=== PATIENT | male | born 1940 | race Hispanic/Latino ===

== ENCOUNTER 2020-02-16 06:32 | Outpatient (CLI) | payer MEDICARE, OTHER ==
[2020-02-16 10:23] LABS: Hemoglobin 9.6 g/dL (14.0-18.0); Mean Corpuscular HGB CONC 31.3 G/DL (32.0-36.0); Mean Corpuscular Hemoglobin 27.1 PG (27.0-33.0); Mean Corpuscular Volume 86.7 fl (80.0-100.0); Mean Platelet Volume 10.4 fl (7.4-10.4); Platelet Count 269 10x3/uL (130-400); RBC Distribution Width 13.6 % (11.5-14.5); Red Blood Cell (RBC) Count 3.54 10x6/uL (4.40-5.80); White Blood Cell (WBC) Count 5.6 10x3/uL (4.5-11.0)
[2020-02-16 17:49] LABS: SARS-CoV-2 MS2 Positive; SARS-CoV-2 N Gene Negative; SARS-CoV-2 S Gene Negative; SARS-CoV-2 by NAA Not Detected (NotDetected); SARS-CoV-2 orf1ab Negative
== END 2020-02-16 06:33 | disposition home or self-care (01) ==
LOC: MERGE 06:32 → LABBT 06:32
PROVIDERS: ATTEND Thoracic Surgery (Cardiothoracic Vascular Surgery)
DX: Z01.812 Encounter for preprocedural laboratory examination (principal); Z20.828 Contact with and (suspected) exposure to other viral communicable diseases; I65.23 Occlusion and stenosis of bilateral carotid arteries
CPT/HCPCS: 85027; U0003; 87635

== ENCOUNTER 2020-02-29 20:22 | Emergency (ER) | payer MEDICARE ==
--- NOTE | 2020-02-29 21:15 | RAD ---
Chest one view HISTORY: Cough. Fever. COMPARISON: 11/17/2017. FINDINGS: Cardiac silhouette is magnified by projection. Pulmonary vasculature is unremarkable. Mediastinum is midline with aortic calcification, postoperative changes, and a single lead left subcl maurisio cardiac defibrillator. No lobar consolidation or evidence of pneumothorax. IMPRESSION : No active cardiopulmonary abnormalities are demonstrated.
[2020-02-29 21:49] LABS: ALT (SGPT) 12 U/L (8-55); AST (SGOT) 31 U/L (5-34); Albumin 3.9 g/dL (3.4-4.8); Alkaline Phosphatase 92 U/L (40-110); Anion Gap 17 mmol/L (10-20); BUN (Urea Nitrogen) 22 mg/dL (8.4-25.7); Bilirubin, Total 0.4 mg/dL (0.2-1.2); Calc. Creatinine Clearance 0 mL/min (70-130); Calcium 8.5 mg/dL (7.8-10.44); Carbon Dioxide 19 mmol/L (23-31); Chloride 103 mmol/L (98-107); Estimated GFR-MDRD 41; Globulin 3.4 g/dL (2.4-3.5); Glucose 165 mg/dL (83-110); Potassium 4.4 mmol/L (3.5-5.1); Protein, Total 7.3 g/dL (5.8-8.1); Sodium 135 mmol/L (136-145)
[2020-02-29 21:51] LABS: #Lymphocytes 0.7 thou/uL (1.20-3.40); #Monocytes 0.5 thou/uL (0.11-0.59); #Neutrophils 5.1 thou/uL (1.40-6.50); %Basophils 0.1 % (0.0-1.0); %Eosinophils 0.2 % (0.0-10.0); %Lymphocytes 10.4 % (21.0-51.0); %Monocytes 7.7 % (0.0-10.0); %Neutrophils 81.6 % (42.0-75.0); Hemoglobin 8.6 g/dL (14.0-18.0); Mean Corpuscular HGB CONC 32.7 g/dL (32.0-36.0); Mean Corpuscular Volume 85.4 fL (78.0-98.0); Mean Platelet Volume 7.9 fL (7.4-10.4); Platelet Count 225 thou/uL (130-400); RBC Distribution Width 12.1 % (11.5-14.5); Red Blood Cell (RBC) Count 3.09 mill/uL (4.70-6.10); White Blood Cell (WBC) Count 6.3 thou/uL (4.8-10.8)
== END 2020-02-29 22:34 | disposition home or self-care (01) ==
LOC: ERS 20:22
DX: J06.9 Acute upper respiratory infection, unspecified (principal); N17.9 Acute kidney failure, unspecified; D64.9 Anemia, unspecified; I10 Essential (primary) hypertension
CPT/HCPCS: 36415; 71045; 80053; 83605; 85025

== ENCOUNTER 2020-03-03 22:53 | Inpatient (IN) | payer MEDICARE ==
--- NOTE | 2020-03-03 23:32 | RAD ---
EXAM: Single view of the chest HISTORY: Cough with fever and body aches COMPARISON: 02/29/2020 FINDINGS: Single view of the chest shows an enlarged but stable cardiomediastinal silhouette. The pa tient is status post sternotomy. A pacemaker is seen with its tip in the right ventricle. Increased interstitial markings are present. There appear to be superimposed peripheral airspace opacities in t he right lung. Degenerative changes are seen in the spine. IMPRESSION: 1. Multifocal right-sided pulmonary infiltrates 2. Cardiomegaly
[2020-03-03 23:41] LABS: #Basophils 0.1 thou/uL (0.0-0.2); #Lymphocytes 0.8 thou/uL (1.20-3.40); #Monocytes 0.4 thou/uL (0.11-0.59); #Neutrophils 6.3 thou/uL (1.40-6.50); %Basophils 1.1 % (0.0-1.0); %Eosinophils 0.1 % (0.0-10.0); %Lymphocytes 10.6 % (21.0-51.0); %Monocytes 4.8 % (0.0-10.0); %Neutrophils 83.4 % (42.0-75.0); Hemoglobin 8.3 g/dL (14.0-18.0); Mean Corpuscular HGB CONC 32.7 g/dL (32.0-36.0); Mean Corpuscular Hemoglobin 27.8 pg (27.0-31.0); Mean Corpuscular Volume 84.8 fL (78.0-98.0); Platelet Count 193 thou/uL (130-400); Red Blood Cell (RBC) Count 2.98 mill/uL (4.70-6.10); White Blood Cell (WBC) Count 7.5 thou/uL (4.8-10.8)
[2020-03-04 00:02] LABS: ALT (SGPT) 16 U/L (8-55); AST (SGOT) 28 U/L (5-34); Albumin 3.9 g/dL (3.4-4.8); Alkaline Phosphatase 85 U/L (40-110); Anion Gap 14 mmol/L (10-20); BUN (Urea Nitrogen) 13 mg/dL (8.4-25.7); Bilirubin, Total 0.4 mg/dL (0.2-1.2); Calc. Creatinine Clearance 0 mL/min (70-130); Calcium 8.5 mg/dL (7.8-10.44); Carbon Dioxide 22 mmol/L (23-31); Chloride 100 mmol/L (98-107); Globulin 3.4 g/dL (2.4-3.5); Glucose 169 mg/dL (83-110); Potassium 4.1 mmol/L (3.5-5.1); Protein, Total 7.3 g/dL (5.8-8.1); Sodium 132 mmol/L (136-145)
[2020-03-04] MEDS ORDERED: Acetaminophen 325 MG TAB PO PRN (00:53)
[2020-03-04] MEDS ORDERED: Dexamethasone 10 MG/ML VIAL ONE (00:56)
[2020-03-04] MEDS ORDERED: Acetaminophen 500 MG TAB ONE (01:11)
--- NOTE | 2020-03-04 01:17 | PDOC.BPN ---
- Brief Progress Note Encounter Date: 03/04/20 [id number] dictated
[2020-03-04 01:28] LABS: SARS-CoV-2 NAA Rapid Test DETECTED (NotDetected)
--- NOTE | 2020-03-04 02:11 | HP ---
CHIEF COMPLAINT: Body aches, cough, and diarrhea. HISTORY OF PRESENT ILLNESS: Mr. Andrade is a 79-year-old male, with past medical history of hypertension and hyperlipidemia, presents to the emergency room with body aches, cough, and diarrhea. Patient had similar symptoms last week and came to the emergency room and was told he was most likely has a viral syndrome. Patient felt better, then symptoms started again today. He had a COVID swab on the 15 of February which was negative. The test was done prior to his carotid endarterectomy. He denies being around sick people. He denies any fever, but in the emergency room, his temperature was 102.4. While in the emergency room, patient's oxygen saturation dropped down to the 80s. Chest x-ray showed infiltrates. CT of the chest was done which showed infiltrates consistent with viral/COVID pneumonia. Patient was started on IV antibiotics. Patient also was given one dose of IV dexamethasone. Patient was given IV fluid bolus in the emergency room. The patient is being admitted to hospital for further management. PAST MEDICAL HISTORY: 1. Hypertension. 2. Hyperlipidemia. PAST SURGICAL HISTORY: 1. Carotid endarterectomy. 2. Defibrillator. 3. Coronary artery bypass graft surgery. 4. Cholecystectomy. SOCIAL HISTORY: Denies smoking, alcohol drinking, or drug abuse. Lives at home with family. HOME MEDICATIONS: Please see home medication reconciliation form for updated medications. ALLERGIES: NO KNOWN ALLERGIES. REVIEW OF SYSTEMS: Review of 14 systems negative, except what is mentioned in history of present illness. PHYSICAL EXAMINATION: GENERAL: Patient is awake, alert, in mild distress. VITAL SIGNS: Blood pressure is 139/60, pulse is 87, respiratory rate is 22, temperature 102.4, and oxygen saturation 94% on 2 L/minute nasal cannula. HEAD AND NECK: Normocephalic, atraumatic. Neck is supple. CHEST: Few bibasilar crackles. Respirations mildly labored. HEART: S1, S2. Regular. ABDOMEN: Soft, mildly tender. Bowel sounds present. NEUROLOGIC: Awake, alert, moving extremities. PSYCH: Unable to assess. EXTREMITIES: No clubbing or cyanosis. LABORATORY DATA: Sodium is 132, potassium is 4.1, BUN is 13, creatinine is 1.0, and glucose 169. WBC 7.5, hemoglobin is 8.3, with MCV of 84, and platelets 193. Chest x-ray showed multifocal right-sided pulmonary infiltrates, cardiomegaly. CT of the chest was done. As per ED physician, bilateral infiltrates consistent with viral/COVID pneumonia. ASSESSMENT: 1. Pneumonia, probably viral secondary to COVID-19 virus infection. 2. Suspected COVID-19 virus infection. 3. Anemia of ?chronic disease. 4. Hypertension. 5. Diarrhea. PLAN: 1. Admit. 2. Repeat COVID testing ordered by ED physician, follow the results. 3. Isolation precautions for now. 4. Patient was given IV fluid bolus because of the diarrhea, I will hold giving any further IV fluids for now, try to avoid fluid overload in a patient with suspected COVID pneumonia. 5. IV dexamethasone, reassess in the a.m. 6. Oxygen to keep saturation more than 92%. 7. Reconcile home medications. 8. DVT prophylaxis as appropriate. 9. Expected length of stay, 2 midnights or more. Job ID: [id number]
[2020-03-04] MEDS: Azithromycin 500 MG in Sodium Chloride 0.9% 250 ML 250 ML IVPB SCH (02:16)
[2020-03-04] MEDS: cefTRIAXone\\ROCEPHIN 1 GM in Sodium Chloride 0.9% 100 ML IVPB SCH (02:16)
[2020-03-04 05:28] LABS: #Lymphocytes 0.4 thou/uL (1.20-3.40); #Monocytes 0.2 thou/uL (0.11-0.59); #Neutrophils 6.6 thou/uL (1.40-6.50); %Eosinophils 0.1 % (0.0-10.0); %Monocytes 2.8 % (0.0-10.0); %Neutrophils 91.2 % (42.0-75.0); Hemoglobin 7.7 g/dL (14.0-18.0); Mean Corpuscular HGB CONC 32.4 g/dL (32.0-36.0); Mean Corpuscular Hemoglobin 27.9 pg (27.0-31.0); Mean Corpuscular Volume 86.1 fL (78.0-98.0); Mean Platelet Volume 8.3 fL (7.4-10.4); Platelet Count 190 thou/uL (130-400); RBC Distribution Width 12.2 % (11.5-14.5); Red Blood Cell (RBC) Count 2.75 mill/uL (4.70-6.10); White Blood Cell (WBC) Count 7.2 thou/uL (4.8-10.8)
[2020-03-04 05:47] LABS: Anion Gap 14 mmol/L (10-20); BUN (Urea Nitrogen) 15 mg/dL (8.4-25.7); Calc. Creatinine Clearance 65 mL/min (70-130); Calcium 7.6 mg/dL (7.8-10.44); Carbon Dioxide 19 mmol/L (23-31); Chloride 103 mmol/L (98-107); Glucose 231 mg/dL (83-110); Potassium 4.4 mmol/L (3.5-5.1); Sodium 132 mmol/L (136-145)
--- NOTE | 2020-03-04 07:03 | CT ---
CT CHEST WITHOUT CONTRAST: Date: 03/03/2020 HISTORY: Cough with body aches and fever. TECHNIQUE: Multiple contiguous axial images were obtained in a CT of the chest without contrast. Sagittal and co reyna reformats were performed. FINDINGS: Multifocal peripheral areas of air space opacity in the lungs consistent with COVID pneumonia. No ple ural effusion is seen. No suspicious pulmonary nodules are present. The heart is mildly enlarged. There is a pacemaker with its lead in the right ventricle. The patient is status post CABG. No hilar or mediastinal lymphadenopathy appreciated, but evaluation is limited w ithout IV contrast. The patient is status post cholecystectomy. The visualized subdiaphragmatic structures are unremarkab le. Degenerative changes are seen in the spine. The chest wall soft tissues are unremarkable. IMPRESSION: COVID pneumonia. POS: EAA
[2020-03-04] MEDS ORDERED: Sodium Chloride 0.9% 1,000 ML IV SCH (09:00)
[2020-03-04] MEDS: Enoxaparin Sodium 40 MG/0.4 ML SYRINGE SC SCH (09:37)
[2020-03-04] MEDS: Famotidine/PF 20 mg/2ml Vial SLOW IVP SCH ×2 (09:37→20:01)
[2020-03-04] MEDS: Dexamethasone 6 MG in Sodium Chloride 0.9% 50 ML IVPB SCH (09:58)
--- NOTE | 2020-03-04 12:39 | PDOC.HOSPP ---
- Subjective Encounter Date: 03/04/20 Encounter Time: 11:10 Subjective: Patient is resting. He is on room air. He has no cough. - Objective Vital Signs & Weight: Vital Signs (12 hours) Temp Pulse Resp BP Pulse Ox 03/04/20 09:46 97.8 F 78 24 H 150/68 H 100 03/04/20 04:10 98.0 F 79 22 H 98/51 L 100 03/04/20 01:38 99.0 F 96 24 H 128/58 L 94 L Weight Weight 157 lb 1.6 oz I&O: 03/03/20 03/04/20 03/05/20 06:59 06:59 06:59 Intake Total 350 Balance 350 Result Diagrams: 03/04/20 04:45 03/04/20 04:45 Hospitalist ROS - Medication Medications: Active Medications Generic Name Dose Route Start Last Admin Trade Name Freq PRN Reason Stop Dose Admin Enoxaparin Sodium 40 mg 03/04/20 09:00 03/04/20 09:37 Enoxaparin Sodium 40 Mg/0.4 Ml Syringe SC 40 mg 0900 CRUZITO Administration Famotidine 20 mg 03/04/20 09:00 03/04/20 09:37 Famotidine/Pf 20 Mg/2ml Vial SLOW IVP 20 mg Q12HR CRUZITO Administration Azithromycin 500 mg/ Sodium 250 mls @ 250 mls/hr 03/04/20 01:00 03/04/20 02:16 Chloride IVPB 250 mls Q24HR CRUZITO Administration Ceftriaxone Sodium 1 gm/ 100 mls @ 200 mls/hr 03/04/20 01:00 03/04/20 02:16 Sodium Chloride IVPB 100 mls Q24HR CRUZITO Administration Dexamethasone 6 mg/ Sodium 50.6 mls @ 100 mls/hr 03/04/20 09:00 03/04/20 09:58 Chloride IVPB 50.6 mls DAILY CRUZITO Administration Sodium Chloride 1,000 mls @ 75 mls/hr 03/04/20 09:00 03/04/20 09:39 Normal Saline 0.9% IV 03/04/20 22:19 1,000 mls .[id number] CRUZITO Administration - Exam General Appearance: NAD, awake alert Eye: PERRL ENT: normocephalic atraumatic Neck: supple Respiratory: normal chest expansion Neurological: no focal deficits Psychiatric: A&O x 3 Hosp A/P - Plan COVID-19 positive test (U07.1, COVID-19) with Acute Pneumonia (J12.89, Other viral pneumonia) (If respiratory failure or sepsis present, add as separate assessment) --IV steroid and antibiotics His sats are good now 1.5 L oxygen satting around 100% - Anemia of inflammatory disease Hemoglobin dropped to 7.7 will follow that tomorrow morning. Diarrhea -Proved Hyponatremia -Gentle hydration.
[2020-03-04] MEDS ORDERED: Aspirin 81 mg Enteric Coated Tablet PO SCH (19:45)
[2020-03-04] MEDS ORDERED: Losartan 25 MG TAB PO SCH (19:45)
[2020-03-04] MEDS ORDERED: Atorvastatin Calcium 10 MG TAB PO SCH (19:45)
[2020-03-04] MEDS: Carvedilol 25 MG TAB PO SCH (20:01)
[2020-03-05] MEDS: Azithromycin 500 MG in Sodium Chloride 0.9% 250 ML 250 ML IVPB SCH (01:06)
[2020-03-05] MEDS: cefTRIAXone\\ROCEPHIN 1 GM in Sodium Chloride 0.9% 100 ML IVPB SCH (01:06)
[2020-03-05 05:06] LABS: #Lymphocytes 0.5 thou/uL (1.20-3.40); #Monocytes 0.5 thou/uL (0.11-0.59); #Neutrophils 9.8 thou/uL (1.40-6.50); %Lymphocytes 4.5 % (21.0-51.0); %Monocytes 4.5 % (0.0-10.0); Hemoglobin 8.5 g/dL (14.0-18.0); Mean Corpuscular HGB CONC 31.8 g/dL (32.0-36.0); Mean Corpuscular Hemoglobin 27.3 pg (27.0-31.0); Mean Corpuscular Volume 85.9 fL (78.0-98.0); Mean Platelet Volume 8.3 fL (7.4-10.4); Platelet Count 249 thou/uL (130-400); RBC Distribution Width 12.3 % (11.5-14.5); Red Blood Cell (RBC) Count 3.09 mill/uL (4.70-6.10); White Blood Cell (WBC) Count 10.8 thou/uL (4.8-10.8)
[2020-03-05 05:38] LABS: Anion Gap 17 mmol/L (10-20); BUN (Urea Nitrogen) 22 mg/dL (8.4-25.7); Calc. Creatinine Clearance 64 mL/min (70-130); Calcium 7.8 mg/dL (7.8-10.44); Carbon Dioxide 16 mmol/L (23-31); Chloride 106 mmol/L (98-107); Glucose 232 mg/dL (83-110); Potassium 4.5 mmol/L (3.5-5.1); Sodium 134 mmol/L (136-145)
[2020-03-05] MEDS: Enoxaparin Sodium 40 MG/0.4 ML SYRINGE SC SCH (09:37)
[2020-03-05] MEDS: Losartan 25 MG TAB PO SCH (09:38)
[2020-03-05] MEDS: Famotidine/PF 20 mg/2ml Vial SLOW IVP SCH ×2 (09:38→20:45)
[2020-03-05] MEDS: Aspirin 81 mg Enteric Coated Tablet PO SCH (09:38)
[2020-03-05] MEDS: Carvedilol 25 MG TAB PO SCH ×2 (09:38→20:45)
[2020-03-05] MEDS: Atorvastatin Calcium 10 MG TAB PO SCH ×3 (09:38→20:45)
[2020-03-05] MEDS: Dexamethasone 6 MG in Sodium Chloride 0.9% 50 ML IVPB SCH (09:39)
--- NOTE | 2020-03-05 13:44 | PDOC.HOSPP ---
- Subjective Encounter Date: 03/05/20 Encounter Time: 10:50 Subjective: Patient has lots of cough. his lung sounds were coarse. This is his first week of active viral phase--sats are coming down at 92% and 88% and improved to 96 with a 2 L oxygen by nasal cannula. He is also tachypneic. - Objective Vital Signs & Weight: Vital Signs (12 hours) Temp Pulse Resp BP BP Pulse Ox 03/05/20 13:40 96 03/05/20 13:28 88 L 03/05/20 13:05 98.5 F 88 24 H 117/56 L 92 L 03/05/20 09:47 97.6 F 88 28 H 137/76 93 L 03/05/20 04:34 97.8 F 82 27 H 132/63 98 Weight Weight 157 lb 1.6 oz I&O: 03/04/20 03/05/20 03/06/20 06:59 06:59 06:59 Intake Total 350 1306 Output Total 1000 Balance 350 306 Result Diagrams: 03/05/20 04:44 03/05/20 04:44 Hospitalist ROS - Medication Medications: Active Medications Generic Name Dose Route Start Last Admin Trade Name Freq PRN Reason Stop Dose Admin Aspirin 81 mg 03/05/20 09:00 03/05/20 09:38 Aspirin 81 Mg Enteric Coated Tablet PO 81 mg DAILY CRUZITO Administration Carvedilol 25 mg 03/04/20 21:00 03/05/20 09:38 Carvedilol 25 Mg Tab PO 25 mg BID CRUZITO Administration Enoxaparin Sodium 40 mg 03/04/20 09:00 03/05/20 09:37 Enoxaparin Sodium 40 Mg/0.4 Ml Syringe SC 40 mg 09 CRUZITO Administration Famotidine 20 mg 03/04/20 09:00 03/05/20 09:38 Famotidine/Pf 20 Mg/2ml Vial SLOW IVP 20 mg Q12HR CRUZITO Administration Azithromycin 500 mg/ Sodium 250 mls @ 250 mls/hr 03/04/20 01:00 03/05/20 01:06 Chloride IVPB 250 mls Q24HR CRUZITO Administration Ceftriaxone Sodium 1 gm/ 100 mls @ 200 mls/hr 03/04/20 01:00 03/05/20 01:06 Sodium Chloride IVPB 100 mls Q24HR CRUZITO Administration Dexamethasone 6 mg/ Sodium 50.6 mls @ 100 mls/hr 03/04/20 09:00 03/05/20 09:39 Chloride IVPB 50.6 mls DAILY CRUZITO Administration Losartan Potassium 25 mg 03/05/20 09:00 03/05/20 09:38 Losartan 25 Mg Tab PO 25 mg DAILY CRUZITO Administration Sodium Chloride 10 ml 03/04/20 04:00 03/05/20 09:37 Flush - Normal Saline 10 Ml Syringe IVF 10 ml PRN PRN Administration Saline Flush - Exam General Appearance: NAD, awake alert Eye: PERRL ENT: normocephalic atraumatic Neurological: no focal deficits Psychiatric: A&O x 3 Hosp A/P - Plan COVID-19 positive test (U07.1, COVID-19) with Acute Pneumonia (J12.89, Other viral pneumonia) (If respiratory failure or sepsis present, add as separate assessment) --IV steroid and antibiotics This is his first week of active viral phase--sats are coming down at 92% and 88% and improved to 96 with a 2 L oxygen by nasal cannula. -Cough due to Covid pneumonia -Antitussive and lozenges. Anemia of inflammatory disease Hemoglobin dropped to 7.7 will follow that tomorrow morning.---------------> 8.5 on Diarrhea -improved Hyponatremia -Gentle hydration. Continue the above management
[2020-03-05] MEDS: guaiFENesin 200 MG TAB PO SCH ×3 (14:08→22:18)
[2020-03-05] MEDS ORDERED: Pharmacy to Dose - REMDESIVIR IVPB PRN (14:34)
[2020-03-05] MEDS ORDERED: REMDESIVIR (EUA) 200 MG in Sodium Chloride 0.9% 250 ML 210 ML IV SCH (15:00)
[2020-03-05] MEDS ORDERED: Benzonatate 100 MG CAP PO PRN (21:11)
[2020-03-05] MEDS ORDERED: Albuterol Sulfate 2.5 mg/3 ml Neb NEB PRN (21:12)
--- NOTE | 2020-03-05 21:44 | RAD ---
RADIOGRAPH CHEST 1 VIEW: DATE: 03/05/2020 TIME: 9:24 PM HISTORY: Tachypnea and diminished breath sounds in 79-year-old male COMPARISON: 03/03/2020 FINDINGS: There has been significant interval worsening of the previously scattered groundglass infiltrates, ri ght greater than left. Now, the majority of the right lung is opacified with alveolar infiltrates/consolidations. There are more extensive alveolar infiltrates in the left lung now than before, with relative sparing of left apex and left lateral base. Cardiomegaly is new or worse. Left subclavian AICD. Sternotomy wires. No pneumothorax. IMPRESSION: 1) significant interval worsening of bilateral pneumonia, right (severe) worse than left. 2) cardiomegaly
[2020-03-05] MEDS ORDERED: Furosemide 40 MG/4 ML VIAL SLOW IVP SCH (21:45)
--- NOTE | 2020-03-05 21:56 | PDOC.EVN ---
Event Note - Event Note Event Note: Notified by RN, patient with increased respiratory rate and moment of confusion. Low sats which improved with O2 by NC increased to 6L from 2L. Patient settled, somewhat improved. Still appears somewhat tachypneic with increased work of breathing once he begins speaking or with movement. Denies any chest pain. No lower extremity edema but lung sounds with diffuse crackles/coarse sounds throughout. Patient states he seems to do ok until he starts coughing. Coughing exacerb ates his breathing. CXR ordered. Lasix 40 mg IV Albuterol inhaler and Tessalon ordered. Labs: BNP, D-dimer, LDH, CRP, BMP, and repeat H/H. Awaiting ABG. Case discussed with Dr. Becker who agrees with above.
[2020-03-05 22:01] LABS: Actual Bicarbonate (HCO3a) 19.3 mEq/L (22-28); Base Excess (BEa) -5.9 mEq/L (-2.0 to +3.0); CO2 Tension 36.5 mmHg (35.0-45.0); Carboxyhemoglobin (COHb) 0.3 gm% (0.0-3.0); O2 Tension (PaO2), arterial 65.4 mmHg (> 70.0); Potassium - ABG Lab 4.26 mmol/L (3.70-5.30); pH, Arterial 7.34 (7.35-7.45)
[2020-03-05 22:03] LABS: ALV-art Gradient 202.695 mmHg (0-20); Puncture Site LRA
[2020-03-05 22:09] LABS: Hemoglobin 8.8 g/dL (14.0-18.0)
[2020-03-05] MEDS: Cepastat Lozenges 1 LOZ PO PRN (22:18)
[2020-03-05 22:25] LABS: Lactic Acid 1.8 mmol/L (0.5-2.2)
[2020-03-05 22:26] LABS: Anion Gap 16 mmol/L (10-20); BUN (Urea Nitrogen) 22 mg/dL (8.4-25.7); CRP (Inflammatory) 16.72 mg/dL (= or < 0.5); Calc. Creatinine Clearance 71 mL/min (70-130); Calcium 7.9 mg/dL (7.8-10.44); Carbon Dioxide 18 mmol/L (23-31); Chloride 104 mmol/L (98-107); Glucose 266 mg/dL (83-110); Potassium 4.4 mmol/L (3.5-5.1); Sodium 134 mmol/L (136-145)
[2020-03-06] MEDS: Cepastat Lozenges 1 LOZ PO PRN ×2 (01:31→09:49)
[2020-03-06] MEDS: Azithromycin 500 MG in Sodium Chloride 0.9% 250 ML 250 ML IVPB SCH (01:35)
[2020-03-06] MEDS: cefTRIAXone\\ROCEPHIN 1 GM in Sodium Chloride 0.9% 100 ML IVPB SCH (01:35)
[2020-03-06] MEDS: guaiFENesin 200 MG TAB PO SCH ×6 (03:35→23:11)
[2020-03-06] MEDS: Furosemide 20 MG/2 ML VIAL SLOW IVP SCH ×3 (05:29→16:24)
[2020-03-06] MEDS: Enoxaparin Sodium 40 MG/0.4 ML SYRINGE SC SCH (09:38)
[2020-03-06] MEDS: Aspirin 81 mg Enteric Coated Tablet PO SCH (09:38)
[2020-03-06] MEDS: Losartan 25 MG TAB PO SCH (09:38)
[2020-03-06] MEDS: Carvedilol 25 MG TAB PO SCH ×2 (09:39→21:02)
[2020-03-06] MEDS: Dexamethasone 6 MG in Sodium Chloride 0.9% 50 ML IVPB SCH (09:39)
[2020-03-06] MEDS: Famotidine/PF 20 mg/2ml Vial SLOW IVP SCH ×2 (09:40→21:02)
[2020-03-06] MEDS ORDERED: Dextrose 5% in Water 1,000 ML IV PRN (14:27)
[2020-03-06] MEDS ORDERED: Dextrose 50% Abboject 50 ML SYRINGE SLOW IVP PRN (14:27)
--- NOTE | 2020-03-06 14:33 | PDOC.HOSPP ---
- Subjective Encounter Date: 03/06/20 Encounter Time: 10:20 Subjective: Patient is still with mild respiratory distress - tachypneic. Even though he is on 4.5 L oxygen. Sats good at 100%. Going to give him dose of convalescent plasma. - Objective Vital Signs & Weight: Vital Signs (12 hours) Temp Pulse Resp BP Pulse Ox 03/06/20 13:25 100 03/06/20 11:52 97.1 F L 71 32 H 129/57 L 100 03/06/20 09:30 98.3 F 87 30 H 136/65 100 03/06/20 05:30 98 03/06/20 03:30 98.0 F 90 32 H 108/55 L 92 L Weight Weight 157 lb 1.6 oz I&O: 03/05/20 03/06/20 03/07/20 06:59 06:59 06:59 Intake Total 1306 1560 Output Total 1000 1670 Balance 306 -110 Result Diagrams: 03/05/20 21:57 03/05/20 21:57 Hospitalist ROS - Medication Medications: Active Medications Generic Name Dose Route Start Last Admin Trade Name Freq PRN Reason Stop Dose Admin Aspirin 81 mg 03/05/20 09:00 03/06/20 09:38 Aspirin 81 Mg Enteric Coated Tablet PO 81 mg DAILY CRUZITO Administration Atorvastatin Calcium 10 mg 03/05/20 21:00 03/05/20 20:45 Atorvastatin Calcium 10 Mg Tab PO 10 mg HS CRUZITO Administration Carvedilol 25 mg 03/04/20 21:00 03/06/20 09:39 Carvedilol 25 Mg Tab PO 25 mg BID CRUZITO Administration Enoxaparin Sodium 40 mg 03/04/20 09:00 03/06/20 09:38 Enoxaparin Sodium 40 Mg/0.4 Ml Syringe SC 40 mg 0900 CRUZITO Administration Famotidine 20 mg 03/04/20 09:00 03/06/20 09:40 Famotidine/Pf 20 Mg/2ml Vial SLOW IVP 20 mg Q12HR CRUZITO Administration Furosemide 20 mg 03/06/20 06:00 03/06/20 05:45 Furosemide 20 Mg/2 Ml Vial SLOW IVP Not Given 0600,1400 CRUZITO Guaifenesin 200 mg 03/05/20 14:00 03/06/20 09:38 Guaifenesin 200 Mg Tab PO 200 mg Q4H CRUZITO Administration Azithromycin 500 mg/ Sodium 250 mls @ 250 mls/hr 03/04/20 01:00 03/06/20 01:35 Chloride IVPB 250 mls Q24HR CRUZITO Administration Ceftriaxone Sodium 1 gm/ 100 mls @ 200 mls/hr 03/04/20 01:00 03/06/20 01:35 Sodium Chloride IVPB 100 mls Q24HR CRUZITO Administration Dexamethasone 6 mg/ Sodium 50.6 mls @ 100 mls/hr 03/04/20 09:00 03/06/20 09:39 Chloride IVPB 50.6 mls DAILY CRUZITO Administration Losartan Potassium 25 mg 03/05/20 09:00 03/06/20 09:38 Losartan 25 Mg Tab PO 25 mg DAILY CRUZITO Administration Sodium Chloride 10 ml 03/04/20 04:00 03/05/20 20:46 Flush - Normal Saline 10 Ml Syringe IVF 10 ml PRN PRN Administration Saline Flush Throat Lozenges 1 faustino 03/05/20 13:52 03/06/20 09:49 Cepastat Lozenges 1 Faustino PO 1 faustino Q2H PRN Administration Sore Throat - Exam General Appearance: NAD, awake alert, ill appearing Eye: PERRL ENT: normocephalic atraumatic Neck: supple Neurological: no weakness Psychiatric: A&O x 3 Hosp A/P - Plan COVID-19 positive test (U07.1, COVID-19) with Acute Pneumonia (J12.89, Other viral pneumonia) (If respiratory failure or sepsis present, add as separate assessment) --IV steroid and antibiotics This is his first week of active viral phase--sats are coming down at 92% and 88% and improved to 96 with a 2 L oxygen by nasal cannula. -Cough due to Covid pneumonia -Antitussive and lozenges. Anemia of inflammatory disease Hemoglobin dropped to 7.7 will follow that tomorrow morning.---------------> 8.5 on Diarrhea -improved Hyponatremia -Gentle hydration. -day 2 on remdesivir -Today convalescent plasma infusion given his increasing oxygen requirement -Checking his inflammatory markers. -Given his elevated BNP with normal creatinine will also diurese him empirically. Follow with 2D echo. Hyperglycemia -For now sliding scale insulin -check A1c if it is above 6.5 will initiate him on hypoglycemic medications.
[2020-03-06] MEDS: REMDESIVIR (EUA) 100 MG in Sodium Chloride 0.9% 250 ML 230 ML IV SCH (16:38)
[2020-03-06] MEDS: Atorvastatin Calcium 10 MG TAB PO SCH (21:02)
[2020-03-06] MEDS: Albuterol 200 PUFF (6.7GM INHALER) INH PRN (21:03)
--- NOTE | 2020-03-06 23:20 | CON ---
DATE OF CONSULTATION: 03/06/2020 REASON FOR CONSULT: COVID pneumonia. HISTORY OF PRESENT ILLNESS: A 79-year-old, who has a history of hypertension, peripheral vascular disease, bypass graft surgery, and ischemic cardiomyopathy with defibrillator in place, who had an endarterectomy last week around Wednesday. At that time, he had tested COVID negative. He stayed in the hospital I guess until next day and then went home and then became ill since I think on Wednesday when he started having symptoms of respiratory complication with cough and some dyspnea and fever. He was admitted and confirmed SARS-CoV-2 PCR positive. He has been started on treatments. He is right now a little bit diaphoretic. He is a bit tachypneic but satting well as noted below. He is coughing intermittently during the interview. No headaches. No visual symptoms, sore throat, odynophagia, or dysphagia. Some anosmia. No abdominal pain or chest pain. No back pain. Voiding without difficulty. PAST MEDICAL HISTORY: Ischemic cardiomyopathy, AICD in place, endarterectomy, bypass graft surgery, cholecystectomy, and hypertension. SOCIAL HISTORY: Lives in the area. Never a smoker. ALLERGIES: NONE. MEDICATIONS: 1. Losartan. 2. Coreg. 3. Spironolactone. 4. Aspirin. 5. Lipitor. CURRENT MEDICATIONS: Include; 1. Decadron. 2. Ceftriaxone. 3. Azithromycin. 4. Albuterol. 5. Remdesivir. 6. He is getting plasma now. FAMILY HISTORY: Noncontributory. PHYSICAL EXAMINATION: VITAL SIGNS: He has been afebrile since admission, BP 120/50; heart rate 71; breathing at 32 times a minute; satting 97 with 4.5 L nasal cannula O2, desaturates to 94 when he does any effort. SKIN: Normal. Peripheral IV access. He is voiding in the urinal. A little bit diaphoretic. LYMPHATIC: No lymphadenopathy. HEENT: Ocular movements conjugate. Oral cavity, still quite a few teeth in place. Oral mucosa normal. NECK: Supple. LUNGS: With scattered crackles. HEART: S1, S2, regular rate. ABDOMEN: Soft. Not distended or tender. No ascites. No bladder distention. No organomegaly. EXTREMITIES: No edema. No joint inflammatory activity. Pulses 1+ in dorsalis pedis. Plantar responses are flexor. Moves all extremities equally. LABORATORIES: White cell count is 10.8, hemoglobin 8.5, platelets 249, and 91% neutrophils. D-dimer 0.96. pH of 7.34, pCO2 of 36, and PO2 of 65. Creatinine 0.87. Ferritin 320. CRP 16.72. CT of chest with diffuse bilateral ground-glass opacities, I would say moderate. ASSESSMENT: 1. Hypertension. 2. Ischemic cardiomyopathy. 3. Severe COVID pneumonia. This is the six days of illness. He is getting all the therapeutic interventions available and is at high risk for deterioration. Hopefully, he will turn around soon. Monitor daily markers and may end up with high-flow oxygen soon. We will see. Job ID: [id number]
[2020-03-07] MEDS: cefTRIAXone\\ROCEPHIN 1 GM in Sodium Chloride 0.9% 100 ML IVPB SCH ×2 (00:28→22:13)
[2020-03-07] MEDS: Azithromycin 500 MG in Sodium Chloride 0.9% 250 ML 250 ML IVPB SCH ×2 (00:28→22:12)
[2020-03-07] MEDS: Cepastat Lozenges 1 LOZ PO PRN ×2 (01:10→03:18)
[2020-03-07] MEDS: guaiFENesin 200 MG TAB PO SCH ×6 (02:55→22:17)
[2020-03-07] MEDS: Albuterol 200 PUFF (6.7GM INHALER) INH PRN (03:19)
[2020-03-07 04:47] LABS: Hemoglobin A1c 7.3 % (4.0-6.0)
[2020-03-07 04:59] LABS: ALT (SGPT) 14 U/L (8-55); AST (SGOT) 18 U/L (5-34); Albumin 3.3 g/dL (3.4-4.8); Alkaline Phosphatase 67 U/L (40-110); Bilirubin, Direct 0.2 mg/dL (0.1-0.3); Bilirubin, Total 0.3 mg/dL (0.2-1.2); CRP (Inflammatory) 17.72 mg/dL (= or < 0.5); Protein, Total 6.4 g/dL (5.8-8.1)
[2020-03-07] MEDS: Furosemide 20 MG/2 ML VIAL SLOW IVP SCH ×2 (06:37→14:40)
[2020-03-07] MEDS: HumaLOG 300 UNITS/3 ML VIAL SC PRN ×3 (06:43→16:56)
[2020-03-07] MEDS: Enoxaparin Sodium 40 MG/0.4 ML SYRINGE SC SCH (08:30)
[2020-03-07] MEDS: Aspirin 81 mg Enteric Coated Tablet PO SCH (08:30)
[2020-03-07] MEDS: Famotidine/PF 20 mg/2ml Vial SLOW IVP SCH (08:30)
[2020-03-07] MEDS: Losartan 25 MG TAB PO SCH (08:30)
[2020-03-07] MEDS: Dexamethasone 6 MG in Sodium Chloride 0.9% 50 ML IVPB SCH (08:30)
[2020-03-07] MEDS: Carvedilol 25 MG TAB PO SCH ×2 (08:30→22:12)
--- NOTE | 2020-03-07 13:05 | PQF ---
CLINICAL DOCUMENTATION CLARIFICATION FORM: Dear Dr.S. Becerra Date: 03/07/2020 0206 Please exercise your independent, professional judgment in responding to the clarification form. Clinical indicators are provided on the bottom of this form for your review. Please check appropriate box(es): [x ] Acute Respiratory Failure: [ x ] with Hypoxia [ ] with Hypercapnia [ ] Acute On Chronic Respiratory Failure: [ ] with Hypoxia [ ] with Hypercapnia [ ] Acute Respiratory Failure due to: (etiology) [ ] Chronic Respiratory Failure only [ ] with Hypoxia [ ] with Hypercapnia [ ] Hypoxia [ ] Other diagnosis [ ] Unable to determine In addition, please specify: Present on Admission (POA): [ ] Yes [ ] No [ ] Unable to determine For continuity of documentation, please document condition throughout progress notes and discharge summary. Thank You. To be completed by CDI/Coding staff for physician review: CLINICAL INDICATORS - SIGNS / SYMPTOMS / LABS / RESULTS AND LOCATION IN MR This is his first week of active viral phase, sats are coming down at 92% and 88% and improved to 96 with 2L oxygen by nasal cannula. He is also tachypneic. ( Mariam/ PN) 03/05 Notified by RN, patient with increased respiratory rate and moment of confusion. Low sats which improved with O2 by NC increased to 6L form 2L. ( [place] / Event note ) 03/05 If respiratory failure or sepsis present, add as separate assessment ( Mariam/ PN) RISK FACTORS / RESULTS AND LOCATION IN MR Covid Pneumonia, respiratory distress, ( Mariam/ PN ) 03/06 TREATMENTS / RESULTS AND LOCATION IN MR Supplemental oxygen (03/04- present) Lasix IV ordered ( 03/07 present) Acute Respiratory Failure: ABG pH < 7.35 or > 7.45; Decreased oxygen saturation (<90% room air or < 95% on oxygen); PCO2 > 50 mm Hg; PO2 < 60 mm Hg; Labored or rapid respirations ARDS: Dx Criteria [[place] ARDS]: Respiratory symptoms within one week of a known clinical insult (e.g. shock, infection, surgery, trauma) Bilateral opacities in CXR/Chest CT not due to CHF or fluid THANK YOU! CDS Signature: Jeanie Kunz RN Phone #: [phone] Date: 03/07/2020 JULIA
[2020-03-07] MEDS: REMDESIVIR (EUA) 100 MG in Sodium Chloride 0.9% 250 ML 230 ML IV SCH (14:40)
--- NOTE | 2020-03-07 15:09 | PDOC.HOSPP ---
- Subjective Encounter Date: 03/07/20 Encounter Time: 15:00 Subjective: He is sleeping. On awakening he says that he feels much better. His cough is less. He is not in any respiratory distress. He is satting 94% with 3.5 L oxygen. He is normotensive. His blood sugar is elevated. - Objective Vital Signs & Weight: Vital Signs (12 hours) Temp Pulse Resp BP Pulse Ox 03/07/20 12:33 72 22 H 121/70 94 L 03/07/20 08:33 98 03/07/20 08:00 98.4 F 75 24 H 138/67 93 L 03/07/20 03:30 98.1 F 83 32 H 137/63 98 Weight Weight 157 lb 1.6 oz I&O: 03/06/20 03/07/20 03/08/20 06:59 06:59 06:59 Intake Total 1560 1070 Output Total 1670 1420 Balance -110 -350 Result Diagrams: 03/05/20 21:57 03/05/20 21:57 Additional Labs: Accuchecks 03/07/20 03/07/20 03/06/20 10:55 06:40 21:17 POC Glucose 269 H 282 H 247 H 03/06/20 16:56 POC Glucose 260 H Hospitalist ROS - Medication Medications: Active Medications Generic Name Dose Route Start Last Admin Trade Name Freq PRN Reason Stop Dose Admin Albuterol Sulfate 2 puff 03/05/20 21:15 03/07/20 03:19 Albuterol 200 Puff (6.7gm Inhaler) INH 2 puff [id number] PRN Administration Wheezing Aspirin 81 mg 03/05/20 09:00 03/07/20 08:30 Aspirin 81 Mg Enteric Coated Tablet PO 81 mg DAILY CRUZITO Administration Atorvastatin Calcium 10 mg 03/05/20 21:00 03/06/20 21:02 Atorvastatin Calcium 10 Mg Tab PO 10 mg HS CRUZITO Administration Benzonatate 100 mg 03/05/20 21:11 03/06/20 21:02 Benzonatate 100 Mg Cap PO 100 mg TIDPRN PRN Administration Cough Carvedilol 25 mg 03/04/20 21:00 03/07/20 08:30 Carvedilol 25 Mg Tab PO 25 mg BID CRUZITO Administration Enoxaparin Sodium 40 mg 03/04/20 09:00 03/07/20 08:30 Enoxaparin Sodium 40 Mg/0.4 Ml Syringe SC 40 mg 0900 CRUZITO Administration Furosemide 20 mg 03/07/20 06:00 03/07/20 14:40 Furosemide 20 Mg/2 Ml Vial SLOW IVP 20 mg 0600,1400 CRUZITO Administration Guaifenesin 200 mg 03/05/20 14:00 03/07/20 14:40 Guaifenesin 200 Mg Tab PO 200 mg Q4H CRUZITO Administration Dexamethasone 6 mg/ Sodium 50.6 mls @ 100 mls/hr 03/04/20 09:00 03/07/20 08:30 Chloride IVPB 50.6 mls DAILY CRUZITO Administration Remdesivir 100 mg/ Sodium 250 mls @ 250 mls/hr 03/06/20 15:00 03/07/20 14:40 Chloride IV 03/09/20 15:59 250 mls 1500 CRUZITO Administration Insulin Human Lispro 0 units 03/06/20 14:27 03/07/20 11:37 Humalog 300 Units/3 Ml Vial SC 4 unit .MILD SLIDING SCALE PRN Administration Mild Correctional Scale Losartan Potassium 25 mg 03/05/20 09:00 03/07/20 08:30 Losartan 25 Mg Tab PO 25 mg DAILY CRUZITO Administration Sodium Chloride 10 ml 03/04/20 04:00 03/05/20 20:46 Flush - Normal Saline 10 Ml Syringe IVF 10 ml PRN PRN Administration Saline Flush Throat Lozenges 1 faustino 03/05/20 13:52 03/07/20 03:18 Cepastat Lozenges 1 Faustino PO 1 faustino Q2H PRN Administration Sore Throat - Exam General Appearance: NAD, awake alert Eye: PERRL ENT: normocephalic atraumatic Neck: supple Neurological: no focal deficits Psychiatric: A&O x 3 Hosp A/P - Plan COVID-19 positive test (U07.1, COVID-19) with Acute Pneumonia (J12.89, Other viral pneumonia) (If respiratory failure or sepsis present, add as separate assessment) --IV steroid and antibiotics This is his first week of active viral phase--sats are coming down at 92% and 88% and improved to 96 with a 2 L oxygen by nasal cannula. -Cough due to Covid pneumonia -Antitussive and lozenges. Anemia of inflammatory disease Hemoglobin dropped to 7.7 will follow that tomorrow morning.---------------> 8.5 on Diarrhea -improved Hyponatremia -Gentle hydration. -day 2 on remdesivir -Today convalescent plasma infusion given his increasing oxygen requirement -Checking his inflammatory markers. -Given his elevated BNP with normal creatinine will also diurese him empirically. Follow with 2D echo. Hyperglycemia -For now sliding scale insulin -check A1c if it is above 6.5 will initiate him on hypoglycemic medications. --A1c of 7.1. His creatinine is normal will start him on low-dose Metformin. We will check the BMP as well as inflammatory markers for tomorrow.
[2020-03-07] MEDS: metFORMIN 500 MG TAB PO SCH (16:56)
[2020-03-07] MEDS: Famotidine 20 MG TAB PO SCH (22:11)
[2020-03-07] MEDS: Atorvastatin Calcium 10 MG TAB PO SCH (22:12)
[2020-03-08] MEDS: guaiFENesin 200 MG TAB PO SCH ×6 (02:26→22:12)
[2020-03-08 05:47] LABS: Anion Gap 15 mmol/L (10-20); BUN (Urea Nitrogen) 25 mg/dL (8.4-25.7); Calc. Creatinine Clearance 79 mL/min (70-130); Calcium 7.9 mg/dL (7.8-10.44); Carbon Dioxide 25 mmol/L (23-31); Chloride 104 mmol/L (98-107); Glucose 228 mg/dL (83-110); Potassium 4.1 mmol/L (3.5-5.1); Sodium 140 mmol/L (136-145)
[2020-03-08 05:48] LABS: ALT (SGPT) 13 U/L (8-55); AST (SGOT) 15 U/L (5-34); Albumin 3.2 g/dL (3.4-4.8); Alkaline Phosphatase 65 U/L (40-110); Bilirubin, Direct 0.2 mg/dL (0.1-0.3); Bilirubin, Total 0.3 mg/dL (0.2-1.2)
[2020-03-08] MEDS: HumaLOG 300 UNITS/3 ML VIAL SC PRN ×4 (06:04→22:13)
[2020-03-08] MEDS: Furosemide 20 MG/2 ML VIAL SLOW IVP SCH ×2 (06:04→13:43)
[2020-03-08] MEDS: Famotidine 20 MG TAB PO SCH ×2 (09:18→22:12)
[2020-03-08] MEDS: Carvedilol 25 MG TAB PO SCH ×2 (09:18→22:11)
[2020-03-08] MEDS: Enoxaparin Sodium 40 MG/0.4 ML SYRINGE SC SCH (09:18)
[2020-03-08] MEDS: Dexamethasone 6 MG in Sodium Chloride 0.9% 50 ML IVPB SCH (09:18)
[2020-03-08] MEDS: Losartan 25 MG TAB PO SCH (09:19)
[2020-03-08] MEDS: Aspirin 81 mg Enteric Coated Tablet PO SCH (09:19)
[2020-03-08] MEDS: metFORMIN 500 MG TAB PO SCH ×2 (09:19→17:31)
--- NOTE | 2020-03-08 12:32 | PDOC.HOSPP ---
- Subjective Encounter Date: 03/08/20 Encounter Time: 10:15 Subjective: Patient is resting he has no acute distress breathing well with 3 L oxygen by nasal cannula. Sats 94%. Less cough. His blood glucose is still on the high end. CRP 8.61. - Objective Vital Signs & Weight: Vital Signs (12 hours) Temp Pulse Resp BP Pulse Ox 03/08/20 08:00 98.1 F 74 20 131/62 94 L 03/08/20 03:31 97.8 F 68 19 139/68 96 Weight Weight 157 lb 1.6 oz I&O: 03/07/20 03/08/20 03/09/20 06:59 06:59 06:59 Intake Total 1070 1730 Output Total 1420 1525 Balance -350 205 Result Diagrams: 03/05/20 21:57 03/08/20 05:00 Additional Labs: Accuchecks 03/08/20 03/08/20 03/07/20 10:35 05:53 22:15 POC Glucose 247 H 199 H 237 H 03/07/20 16:44 POC Glucose 236 H Hospitalist ROS - Medication Medications: Active Medications Generic Name Dose Route Start Last Admin Trade Name Freq PRN Reason Stop Dose Admin Albuterol Sulfate 2 puff 03/05/20 21:15 03/07/20 03:19 Albuterol 200 Puff (6.7gm Inhaler) INH 2 puff [id number] PRN Administration Wheezing Aspirin 81 mg 03/05/20 09:00 03/08/20 09:19 Aspirin 81 Mg Enteric Coated Tablet PO 81 mg DAILY CRUZITO Administration Atorvastatin Calcium 10 mg 03/05/20 21:00 03/07/20 22:12 Atorvastatin Calcium 10 Mg Tab PO 10 mg HS CRUZITO Administration Benzonatate 100 mg 03/05/20 21:11 03/06/20 21:02 Benzonatate 100 Mg Cap PO 100 mg TIDPRN PRN Administration Cough Carvedilol 25 mg 03/04/20 21:00 03/08/20 09:18 Carvedilol 25 Mg Tab PO 25 mg BID CRUZITO Administration Enoxaparin Sodium 40 mg 03/04/20 09:00 03/08/20 09:18 Enoxaparin Sodium 40 Mg/0.4 Ml Syringe SC 40 mg 0900 CRUZITO Administration Famotidine 20 mg 03/07/20 21:00 03/08/20 09:18 Famotidine 20 Mg Tab PO 20 mg Q12HR CRUZITO Administration Furosemide 20 mg 03/07/20 06:00 03/08/20 06:04 Furosemide 20 Mg/2 Ml Vial SLOW IVP 20 mg 0600,1400 CRUZITO Administration Guaifenesin 200 mg 03/05/20 14:00 03/08/20 09:19 Guaifenesin 200 Mg Tab PO 200 mg Q4H CRUZITO Administration Dexamethasone 6 mg/ Sodium 50.6 mls @ 100 mls/hr 03/04/20 09:00 03/08/20 09:18 Chloride IVPB 50.6 mls DAILY CRUZITO Administration Remdesivir 100 mg/ Sodium 250 mls @ 250 mls/hr 03/06/20 15:00 03/07/20 14:40 Chloride IV 03/09/20 15:59 250 mls 1500 CRUZITO Administration Azithromycin 500 mg/ Sodium 250 mls @ 250 mls/hr 03/07/20 21:00 03/07/20 22:12 Chloride IVPB 250 mls 2100 CRUZITO Administration Ceftriaxone Sodium 1 gm/ 100 mls @ 200 mls/hr 03/07/20 21:00 03/07/20 22:13 Sodium Chloride IVPB 100 mls 2100 CRUZITO Administration Insulin Human Lispro 0 units 03/06/20 14:27 03/08/20 11:34 Humalog 300 Units/3 Ml Vial SC 3 unit .MILD SLIDING SCALE PRN Administration Mild Correctional Scale Losartan Potassium 25 mg 03/05/20 09:00 03/08/20 09:19 Losartan 25 Mg Tab PO 25 mg DAILY CRUZITO Administration Metformin HCl 500 mg 03/07/20 17:00 03/08/20 09:19 Metformin 500 Mg Tab PO 500 mg BID-WM CRUZITO Administration Sodium Chloride 10 ml 03/04/20 04:00 03/05/20 20:46 Flush - Normal Saline 10 Ml Syringe IVF 10 ml PRN PRN Administration Saline Flush Throat Lozenges 1 faustino 03/05/20 13:52 03/07/20 03:18 Cepastat Lozenges 1 Faustino PO 1 faustino Q2H PRN Administration Sore Throat - Exam General Appearance: NAD, awake alert Eye: PERRL ENT: normocephalic atraumatic Neck: supple Heart: RRR Respiratory: CTAB, normal chest expansion Gastrointestinal: soft, normal bowel sounds Extremities: 1+ LE edema Neurological: no focal deficits Psychiatric: A&O x 3 Hosp A/P - Plan COVID-19 positive test (U07.1, COVID-19) with Acute Pneumonia (J12.89, Other v iral pneumonia) (If respiratory failure or sepsis present, add as separate assessment) --IV steroid and antibiotics This is his first week of active viral phase--sats are coming down at 92% and 88% and improved to 96 with a 2 L oxygen by nasal cannula. -Cough due to Covid pneumonia -Antitussive and lozenges. Anemia of inflammatory disease Hemoglobin dropped to 7.7 will follow that tomorrow morning.---------------> 8.5 on Diarrhea -improved Hyponatremia -Gentle hydration. -day 2 on remdesivir -Today convalescent plasma infusion given his increasing oxygen requirement -Checking his inflammatory markers. -Given his elevated BNP with normal creatinine will also diurese him empi rically. Follow with 2D echo. Hyperglycemia -check A1c if it is above 6.5 will initiate him on Metformin and sliding scale insulin --A1c of 7.1. His creatinine is normal will start him on low-dose Metformin. Continue the treatment for Covid.
[2020-03-08] MEDS: REMDESIVIR (EUA) 100 MG in Sodium Chloride 0.9% 250 ML 230 ML IV SCH (13:42)
[2020-03-08] MEDS: Azithromycin 500 MG in Sodium Chloride 0.9% 250 ML 250 ML IVPB SCH (22:11)
[2020-03-08] MEDS: cefTRIAXone\\ROCEPHIN 1 GM in Sodium Chloride 0.9% 100 ML IVPB SCH (22:12)
[2020-03-08] MEDS: Atorvastatin Calcium 10 MG TAB PO SCH (22:12)
[2020-03-09 03:07] LABS: Anion Gap 15 mmol/L (10-20); BUN (Urea Nitrogen) 25 mg/dL (8.4-25.7); Calc. Creatinine Clearance 77 mL/min (70-130); Calcium 7.6 mg/dL (7.8-10.44); Carbon Dioxide 25 mmol/L (23-31); Chloride 102 mmol/L (98-107); Glucose 162 mg/dL (83-110); Potassium 3.6 mmol/L (3.5-5.1); Sodium 138 mmol/L (136-145)
[2020-03-09 03:10] LABS: ALT (SGPT) 9 U/L (8-55); AST (SGOT) 14 U/L (5-34); Alkaline Phosphatase 60 U/L (40-110); Bilirubin, Direct 0.2 mg/dL (0.1-0.3); Bilirubin, Total 0.3 mg/dL (0.2-1.2); Protein, Total 5.8 g/dL (5.8-8.1)
[2020-03-09] MEDS: Furosemide 20 MG/2 ML VIAL SLOW IVP SCH ×2 (06:49→15:25)
[2020-03-09] MEDS: guaiFENesin 200 MG TAB PO SCH ×6 (06:51→22:43)
[2020-03-09] MEDS: Carvedilol 25 MG TAB PO SCH ×2 (10:25→22:44)
[2020-03-09] MEDS: Losartan 25 MG TAB PO SCH (10:25)
[2020-03-09] MEDS: Famotidine 20 MG TAB PO SCH ×2 (10:25→22:44)
[2020-03-09] MEDS: Aspirin 81 mg Enteric Coated Tablet PO SCH (10:25)
[2020-03-09] MEDS: metFORMIN 500 MG TAB PO SCH ×2 (10:25→18:16)
[2020-03-09] MEDS: Enoxaparin Sodium 40 MG/0.4 ML SYRINGE SC SCH (10:26)
[2020-03-09] MEDS: Dexamethasone 6 MG in Sodium Chloride 0.9% 50 ML IVPB SCH (10:26)
--- NOTE | 2020-03-09 11:01 | RAD ---
Chest one view HISTORY: Pneumonia. COVID pneumonitis. COMPARISON: 03/05/2020. FINDINGS: Cardiac silhouette is magnified and upper limits of normal in size. Pulmonary vasculature a lso upper limits of normal. Mediastinum is midline with postoperative changes and a single lead left subclavian cardiac defibrill ator. Very mild ill-defined groundglass opacity remains over the right upper lobe and right lung base. Infi ltrates are much less dense than on the prior study. No lobar consolidation or evidence of pneumothorax. IMPRESSION : Remarkable improvement in bilateral infiltrates with minimal residual opacity. No new abnormalities.
[2020-03-09] MEDS: HumaLOG 300 UNITS/3 ML VIAL SC PRN ×2 (12:13→18:14)
[2020-03-09] MEDS: REMDESIVIR (EUA) 100 MG in Sodium Chloride 0.9% 250 ML 230 ML IV SCH (15:26)
--- NOTE | 2020-03-09 19:33 | PDOC.HOSPP ---
- Subjective Encounter Date: 03/09/20 Encounter Time: 19:31 Subjective: The patient is doing well. He has only mild cough. No shortness of breath significantly. He is on 5L, saturating 95% - Objective Vital Signs & Weight: Vital Signs (12 hours) Temp Pulse Resp BP BP Pulse Ox 03/09/20 15:34 98.8 F 75 28 H 119/68 95 03/09/20 12:15 99.9 F H 72 19 107/59 L 91 L 03/09/20 10:31 99 F 74 24 H 117/59 L 92 L Weight Weight 157 lb 1.6 oz I&O: 03/08/20 03/09/20 03/10/20 06:59 06:59 06:59 Intake Total 1730 1360 480 Output Total 1525 1050 650 Balance 205 310 -170 Result Diagrams: 03/05/20 21:57 03/09/20 02:29 Additional Labs: Accuchecks 03/09/20 03/09/20 03/09/20 17:38 11:23 06:01 POC Glucose 309 H 191 H 161 H 03/08/20 20:45 POC Glucose 226 H Hospitalist ROS - Review of Systems Constitutional: denies: fever, chills - Medication Medications: Active Medications Generic Name Dose Route Start Last Admin Trade Name Freq PRN Reason Stop Dose Admin Albuterol Sulfate 2 puff 03/05/20 21:15 03/07/20 03:19 Albuterol 200 Puff (6.7gm Inhaler) INH 2 puff [id number] PRN Administration Wheezing Aspirin 81 mg 03/05/20 09:00 03/09/20 10:25 Aspirin 81 Mg Enteric Coated Tablet PO 81 mg DAILY CRUZITO Administration Atorvastatin Calcium 10 mg 03/05/20 21:00 03/08/20 22:12 Atorvastatin Calcium 10 Mg Tab PO 10 mg HS CRUZITO Administration Benzonatate 100 mg 03/05/20 21:11 03/06/20 21:02 Benzonatate 100 Mg Cap PO 100 mg TIDPRN PRN Administration Cough Carvedilol 25 mg 03/04/20 21:00 03/09/20 10:25 Carvedilol 25 Mg Tab PO 25 mg BID CRUZITO Administration Enoxaparin Sodium 40 mg 03/04/20 09:00 03/09/20 10:26 Enoxaparin Sodium 40 Mg/0.4 Ml Syringe SC 40 mg 0900 CRUZITO Administration Famotidine 20 mg 03/07/20 21:00 03/09/20 10:25 Famotidine 20 Mg Tab PO 20 mg Q12HR CRUZITO Administration Furosemide 20 mg 03/07/20 06:00 03/09/20 15:25 Furosemide 20 Mg/2 Ml Vial SLOW IVP 20 mg 0600,1400 CRUZITO Administration Guaifenesin 200 mg 03/05/20 14:00 03/09/20 18:15 Guaifenesin 200 Mg Tab PO 200 mg Q4H CRUZITO Administration Dexamethasone 6 mg/ Sodium 50.6 mls @ 100 mls/hr 03/04/20 09:00 03/09/20 10:26 Chloride IVPB 50.6 mls DAILY CRUZITO Administration Azithromycin 500 mg/ Sodium 250 mls @ 250 mls/hr 03/07/20 21:00 03/08/20 22:11 Chloride IVPB 250 mls 2100 CRUZITO Administration Ceftriaxone Sodium 1 gm/ 100 mls @ 200 mls/hr 03/07/20 21:00 03/08/20 22:12 Sodium Chloride IVPB 100 mls 2100 CRUZITO Administration Insulin Human Lispro 0 units 03/06/20 14:27 03/09/20 18:14 Humalog 300 Units/3 Ml Vial SC 5 unit .MILD SLIDING SCALE PRN Administration Mild Correctional Scale Insulin Human Lispro 0 units 03/07/20 23:11 03/08/20 22:13 Humalog 300 Units/3 Ml Vial SC 2 unit .BEDTIME SLIDING SC PRN Administration Bedtime Correctional Scale Losartan Potassium 25 mg 03/05/20 09:00 03/09/20 10:25 Losartan 25 Mg Tab PO 25 mg DAILY CRUZITO Administration Metformin HCl 500 mg 03/07/20 17:00 03/09/20 18:16 Metformin 500 Mg Tab PO 500 mg BID-WM CRUZITO Administration Sodium Chloride 10 ml 03/04/20 04:00 03/05/20 20:46 Flush - Normal Saline 10 Ml Syringe IVF 10 ml PRN PRN Administration Saline Flush Throat Lozenges 1 faustino 03/05/20 13:52 03/07/20 03:18 Cepastat Lozenges 1 Faustino PO 1 faustino Q2H PRN Administration Sore Throat - Exam General Appearance: NAD, awake alert Eye: PERRL, anicteric sclera ENT: normocephalic atraumatic, no oropharyngeal lesions Neck: no JVD Heart: RRR, no murmur, no gallops, no rubs Respiratory - other findings: diminished breath sounds bilaterally Gastrointestinal: soft, non-tender, non-distended, normal bowel sounds Extremities: no cyanosis, no clubbing, no edema Skin: normal turgor, no lesions, no rashes Hosp A/P - Plan Chest X ray: improvement in bilateral infiltrates This is a 79 year old female who presented with myalgias, cough, diarrhea, found to be COVID+ Acute hypoxic respiratory failure secondary to COVID pneumonia - improving, oxygen weaned down to 4L. Chest X ray shows improvement. - continue ceftriaxone and azithromycin, dexamethasone. Continue to wean oxygen to maintain sat > 92% - he is on day 08/21 of remdesivir. Received convalescent plasma on 02/24 Type II diabetes - continue metformin. A1C 7.3 - start lantus 7 units SC nightly Hypertension - continue coreg Anemia - Hb 8.8, stable Dispo: consider d/c tomorrow with/without oxygen
[2020-03-09] MEDS: Azithromycin 500 MG in Sodium Chloride 0.9% 250 ML 250 ML IVPB SCH (22:43)
[2020-03-09] MEDS: Atorvastatin Calcium 10 MG TAB PO SCH (22:44)
[2020-03-09] MEDS: cefTRIAXone\\ROCEPHIN 1 GM in Sodium Chloride 0.9% 100 ML IVPB SCH (22:44)
[2020-03-09] MEDS: Insulin Glargine 7 UNITS in Pre-Filled Syringe 1 EACH SC SCH (22:46)
[2020-03-10 05:25] LABS: Anion Gap 14 mmol/L (10-20); BUN (Urea Nitrogen) 28 mg/dL (8.4-25.7); Calc. Creatinine Clearance 78 mL/min (70-130); Calcium 7.6 mg/dL (7.8-10.44); Carbon Dioxide 24 mmol/L (23-31); Chloride 103 mmol/L (98-107); Glucose 205 mg/dL (83-110); Potassium 3.8 mmol/L (3.5-5.1); Sodium 137 mmol/L (136-145)
[2020-03-10 05:26] LABS: ALT (SGPT) 9 U/L (8-55); AST (SGOT) 13 U/L (5-34); Alkaline Phosphatase 61 U/L (40-110); Bilirubin, Direct 0.2 mg/dL (0.1-0.3); Bilirubin, Total 0.3 mg/dL (0.2-1.2); Protein, Total 5.7 g/dL (5.8-8.1)
[2020-03-10] MEDS: HumaLOG 300 UNITS/3 ML VIAL SC PRN ×3 (06:31→17:34)
[2020-03-10] MEDS: guaiFENesin 200 MG TAB PO SCH ×6 (06:31→21:43)
[2020-03-10] MEDS: Furosemide 20 MG/2 ML VIAL SLOW IVP SCH ×2 (06:31→13:43)
[2020-03-10] MEDS: metFORMIN 500 MG TAB PO SCH ×2 (08:25→16:54)
[2020-03-10] MEDS: Aspirin 81 mg Enteric Coated Tablet PO SCH (08:26)
[2020-03-10] MEDS: Enoxaparin Sodium 40 MG/0.4 ML SYRINGE SC SCH (08:26)
[2020-03-10] MEDS: Dexamethasone 4 mg/ml Vial SLOW IVP SCH (08:26)
[2020-03-10] MEDS: Carvedilol 25 MG TAB PO SCH ×2 (08:26→21:42)
[2020-03-10] MEDS: Losartan 25 MG TAB PO SCH (08:27)
[2020-03-10] MEDS: Famotidine 20 MG TAB PO SCH ×2 (08:27→21:43)
--- NOTE | 2020-03-10 17:14 | PDOC.HOSPP ---
- Subjective Encounter Date: 03/10/20 Encounter Time: 13:00 Subjective: F/u : COVID The patient is doing well. He has only a mild dry cough. No shortness of breath. Respiratory had taken him off oxygen and he was 86% on room air. Per nursing, it took 15 minutes to get his oxygen saturation above 92% and he was on 6L 91%. The patient has been weaned down to 5L again Per nursing, patient's mentation had improved when oxygen sat was 94% The patient is eager to go home - Objective Vital Signs & Weight: Vital Signs (12 hours) Temp Pulse Resp BP BP BP Pulse Ox 03/10/20 17:11 98.2 F 68 20 128/58 L 95 03/10/20 12:47 89 L 03/10/20 11:55 98.2 F 62 18 106/51 L 96 03/10/20 11:52 94 L 03/10/20 11:00 84 L 03/10/20 08:32 92 L 03/10/20 08:30 99.2 F 70 20 116/58 L 95 03/10/20 06:30 77 20 137/63 96 Weight Weight 157 lb 1.6 oz I&O: 03/09/20 03/10/20 03/11/20 06:59 06:59 06:59 Intake Total 1360 950 480 Output Total 1050 1050 250 Balance 310 -100 230 Result Diagrams: 03/05/20 21:57 03/10/20 04:43 Additional Labs: Accuchecks 03/10/20 03/10/20 03/10/20 16:59 11:55 05:26 POC Glucose 251 H 215 H 197 H 03/09/20 17:38 POC Glucose 309 H Hospitalist ROS - Review of Systems Constitutional: denies: fever, chills - Medication Medications: Active Medications Generic Name Dose Route Start Last Admin Trade Name Freq PRN Reason Stop Dose Admin Albuterol Sulfate 2 puff 03/05/20 21:15 03/07/20 03:19 Albuterol 200 Puff (6.7gm Inhaler) INH 2 puff [id number] PRN Administration Wheezing Aspirin 81 mg 03/05/20 09:00 03/10/20 08:26 Aspirin 81 Mg Enteric Coated Tablet PO 81 mg DAILY CRUZITO Administration Atorvastatin Calcium 10 mg 03/05/20 21:00 03/09/20 22:44 Atorvastatin Calcium 10 Mg Tab PO 10 mg HS CRUZITO Administration Benzonatate 100 mg 03/05/20 21:11 03/06/20 21:02 Benzonatate 100 Mg Cap PO 100 mg TIDPRN PRN Administration Cough Carvedilol 25 mg 03/04/20 21:00 03/10/20 08:26 Carvedilol 25 Mg Tab PO 25 mg BID CRUZITO Administration Dexamethasone 6 mg 03/10/20 09:00 03/10/20 08:26 Dexamethasone 4 Mg/Ml Vial SLOW IVP 6 mg DAILY CRUZITO Administration Enoxaparin Sodium 40 mg 03/04/20 09:00 03/10/20 08:26 Enoxaparin Sodium 40 Mg/0.4 Ml Syringe SC 40 mg 0900 CRUZITO Administration Famotidine 20 mg 03/07/20 21:00 03/10/20 08:27 Famotidine 20 Mg Tab PO 20 mg Q12HR CRUZITO Administration Furosemide 20 mg 03/07/20 06:00 03/10/20 13:43 Furosemide 20 Mg/2 Ml Vial SLOW IVP 20 mg 0600,1400 CRUZITO Administration Guaifenesin 200 mg 03/05/20 14:00 03/10/20 16:54 Guaifenesin 200 Mg Tab PO 200 mg Q4H CRUZITO Administration Azithromycin 500 mg/ Sodium 250 mls @ 250 mls/hr 03/07/20 21:00 03/09/20 22:43 Chloride IVPB 250 mls 2100 CRUZITO Administration Ceftriaxone Sodium 1 gm/ 100 mls @ 200 mls/hr 03/07/20 21:00 03/09/20 22:44 Sodium Chloride IVPB 100 mls 2100 CRUZITO Administration Insulin Glargine 7 units/ 0.07 mls @ 0 mls/hr 03/09/20 21:00 03/09/20 22:46 Miscellaneous Medication SC 0.07 mls HS CRUZITO Administration Insulin Human Lispro 0 units 03/06/20 14:27 03/10/20 13:27 Humalog 300 Units/3 Ml Vial SC 3 unit .MILD SLIDING SCALE PRN Administration Mild Correctional Scale Insulin Human Lispro 0 units 03/07/20 23:11 03/08/20 22:13 Humalog 300 Units/3 Ml Vial SC 2 unit .BEDTIME SLIDING SC PRN Administration Bedtime Correctional Scale Losartan Potassium 25 mg 03/05/20 09:00 03/10/20 08:27 Losartan 25 Mg Tab PO 25 mg DAILY CRUZITO Administration Metformin HCl 500 mg 03/07/20 17:00 03/10/20 16:54 Metformin 500 Mg Tab PO 500 mg BID-WM CRUZITO Administration Sodium Chloride 10 ml 03/04/20 04:00 03/10/20 13:40 Flush - Normal Saline 10 Ml Syringe IVF 10 ml PRN PRN Administration Saline Flush Throat Lozenges 1 faustino 03/05/20 13:52 03/07/20 03:18 Cepastat Lozenges 1 Faustino PO 1 faustino Q2H PRN Administration Sore Throat - Exam General Appearance: NAD, awake alert Eye: PERRL, anicteric sclera ENT: normocephalic atraumatic, no oropharyngeal lesions Neck: no JVD Heart: RRR, no murmur, no gallops, no rubs Respiratory: no wheezes, no rales, no ronchi Respiratory - other findings: diminished breath sounds at the bases Gastrointestinal: soft, non-tender, non-distended, normal bowel sounds Extremities: no cyanosis, no clubbing, no edema Skin: normal turgor, no lesions, no rashes Neurological: cranial nerve grossly intact, normal sensation to touch, no weakness Hosp A/P - Plan Chest X ray: improvement in bilateral infiltrates This is a 79 year old female who presented with myalgias, cough, diarrhea, found to be COVID+ Acute hypoxic respiratory failure secondary to COVID pneumonia - improving, oxygen weaned down to 4L. Chest X ray shows improvement. - continue ceftriaxone and azithromycin, dexamethasone. Continue to wean oxygen to maintain sat > 92% - he is s/p 5 days of remdesivir. Received convalescent plasma on 02/24 Type II diabetes - continue metformin. A1C 7.3 - start lantus 7 units SC nightly . AM blood sugar improved to 150. Will i ncrease sliding scale to moderate dose Hypertension - continue coreg Anemia - Hb 8.8, stable Dispo: continue to wean off oxygen. Case management consulted for home oxygen
[2020-03-10] MEDS: Azithromycin 500 MG in Sodium Chloride 0.9% 250 ML 250 ML IVPB SCH (21:42)
[2020-03-10] MEDS: cefTRIAXone\\ROCEPHIN 1 GM in Sodium Chloride 0.9% 100 ML IVPB SCH (21:42)
[2020-03-10] MEDS: Atorvastatin Calcium 10 MG TAB PO SCH (21:42)
[2020-03-10] MEDS: Insulin Glargine 7 UNITS in Pre-Filled Syringe 1 EACH SC SCH (21:43)
[2020-03-11 05:36] LABS: Mean Corpuscular HGB CONC 32.1 g/dL (32.0-36.0); Mean Corpuscular Hemoglobin 27.2 pg (27.0-31.0); Mean Corpuscular Volume 84.6 fL (78.0-98.0); Platelet Count 369 thou/uL (130-400); RBC Distribution Width 12.5 % (11.5-14.5); Red Blood Cell (RBC) Count 2.95 mill/uL (4.70-6.10); White Blood Cell (WBC) Count 9.1 thou/uL (4.8-10.8)
[2020-03-11 05:59] LABS: ALT (SGPT) 7 U/L (8-55); AST (SGOT) 15 U/L (5-34); Alkaline Phosphatase 62 U/L (40-110); Anion Gap 13 mmol/L (10-20); BUN (Urea Nitrogen) 34 mg/dL (8.4-25.7); Bilirubin, Direct 0.2 mg/dL (0.1-0.3); Bilirubin, Total 0.3 mg/dL (0.2-1.2); Calc. Creatinine Clearance 74 mL/min (70-130); Calcium 7.8 mg/dL (7.8-10.44); Carbon Dioxide 25 mmol/L (23-31); Chloride 103 mmol/L (98-107); Glucose 182 mg/dL (83-110); Potassium 3.6 mmol/L (3.5-5.1); Protein, Total 5.7 g/dL (5.8-8.1); Sodium 137 mmol/L (136-145)
[2020-03-11] MEDS: Furosemide 20 MG/2 ML VIAL SLOW IVP SCH ×2 (06:40→15:00)
[2020-03-11] MEDS: Aspirin 81 mg Enteric Coated Tablet PO SCH (07:38)
[2020-03-11] MEDS: metFORMIN 500 MG TAB PO SCH ×2 (07:38→17:02)
[2020-03-11] MEDS: Enoxaparin Sodium 40 MG/0.4 ML SYRINGE SC SCH (07:39)
[2020-03-11] MEDS: Losartan 25 MG TAB PO SCH (07:39)
[2020-03-11] MEDS: Carvedilol 25 MG TAB PO SCH ×2 (07:39→20:44)
[2020-03-11] MEDS: Dexamethasone 4 mg/ml Vial SLOW IVP SCH (07:39)
[2020-03-11] MEDS: Famotidine 20 MG TAB PO SCH ×2 (07:39→20:46)
[2020-03-11] MEDS: guaiFENesin 200 MG TAB PO SCH ×6 (07:40→21:13)
[2020-03-11] MEDS: HumaLOG 300 UNITS/3 ML VIAL SC PRN ×3 (11:49→20:47)
--- NOTE | 2020-03-11 14:25 | PDOC.HOSPP ---
- Objective Vital Signs & Weight: Vital Signs (12 hours) Temp Pulse Pulse Pulse Resp BP BP 03/11/20 11:41 98.1 F 64 20 03/11/20 10:05 64 64 107/51 L 88/51 L 03/11/20 08:00 98.8 F 65 22 H 03/11/20 04:00 99.4 F 75 12 BP Pulse Ox Pulse Ox Pulse Ox 03/11/20 11:41 107/55 L 94 L 03/11/20 10:05 96 84 L 03/11/20 08:00 138/62 91 L 03/11/20 04:00 121/57 L 90 L Weight Weight 157 lb 1.6 oz I&O: 03/10/20 03/11/20 03/12/20 06:59 06:59 06:59 Intake Total 950 720 480 Output Total 1050 1050 500 Balance -100 -330 -20 Result Diagrams: 03/11/20 05:11 03/11/20 05:11 Additional Labs: Accuchecks 03/11/20 03/10/20 03/09/20 11:36 16:59 21:15 POC Glucose 241 H 251 H 254 H Hospitalist ROS - Medication Medications: Active Medications Generic Name Dose Route Start Last Admin Trade Name Freq PRN Reason Stop Dose Admin Albuterol Sulfate 2 puff 03/05/20 21:15 03/07/20 03:19 Albuterol 200 Puff (6.7gm Inhaler) INH 2 puff [id number] PRN Administration Wheezing Aspirin 81 mg 03/05/20 09:00 03/11/20 07:38 Aspirin 81 Mg Enteric Coated Tablet PO 81 mg DAILY CRUZITO Administration Atorvastatin Calcium 10 mg 03/05/20 21:00 03/10/20 21:42 Atorvastatin Calcium 10 Mg Tab PO 10 mg HS CRUZITO Administration Benzonatate 100 mg 03/05/20 21:11 03/06/20 21:02 Benzonatate 100 Mg Cap PO 100 mg TIDPRN PRN Administration Cough Carvedilol 25 mg 03/04/20 21:00 03/11/20 07:39 Carvedilol 25 Mg Tab PO 25 mg BID CRUZITO Administration Dexamethasone 6 mg 03/10/20 09:00 03/11/20 07:39 Dexamethasone 4 Mg/Ml Vial SLOW IVP 6 mg DAILY CRUZITO Administration Famotidine 20 mg 03/07/20 21:00 03/11/20 07:39 Famotidine 20 Mg Tab PO 20 mg Q12HR CRUZITO Administration Guaifenesin 200 mg 03/05/20 14:00 03/11/20 11:27 Guaifenesin 200 Mg Tab PO 200 mg Q4H CRUZITO Administration Azithromycin 500 mg/ Sodium 250 mls @ 250 mls/hr 03/07/20 21:00 03/10/20 21:42 Chloride IVPB 250 mls 2100 CRUZITO Administration Ceftriaxone Sodium 1 gm/ 100 mls @ 200 mls/hr 03/07/20 21:00 03/10/20 21:42 Sodium Chloride IVPB 100 mls 2100 CRUZITO Administration Insulin Glargine 7 units/ 0.07 mls @ 0 mls/hr 03/09/20 21:00 03/10/20 21:43 Miscellaneous Medication SC 0.07 mls HS CRUZITO Administration Insulin Human Lispro 0 units 03/07/20 23:11 03/08/20 22:13 Humalog 300 Units/3 Ml Vial SC 2 unit .BEDTIME SLIDING SC PRN Administration Bedtime Correctional Scale Insulin Human Lispro 0 units 03/10/20 17:14 03/11/20 11:49 Humalog 300 Units/3 Ml Vial SC 4 unit .MODERATE SLIDING SC PRN Administration Moderate Correctional Scale Losartan Potassium 25 mg 03/05/20 09:00 03/11/20 07:39 Losartan 25 Mg Tab PO 25 mg DAILY CRUZITO Administration Metformin HCl 500 mg 03/07/20 17:00 03/11/20 07:38 Metformin 500 Mg Tab PO 500 mg BID-WM CRUZITO Administration Sodium Chloride 10 ml 03/04/20 04:00 03/11/20 07:40 Flush - Normal Saline 10 Ml Syringe IVF 10 ml PRN PRN Administration Saline Flush Throat Lozenges 1 faustino 03/05/20 13:52 03/07/20 03:18 Cepastat Lozenges 1 Faustino PO 1 faustino Q2H PRN Administration Sore Throat Hosp A/P - Plan Chest X ray: improvement in bilateral infiltrates This is a 79 year old female who presented with myalgias, cough, diarrhea, found to be COVID+ Acute hypoxic respiratory failure secondary to COVID pneumonia - improving, oxygen weaned down to 4L. Chest X ray shows improvement. - continue ceftriaxone and azithromycin, dexamethasone. Continue to wean oxygen to maintain sat > 92% - he is s/p 5 days of remdesivir. Received convalescent plasma on 02/24 Type II diabetes - continue metformin. A1C 7.3 - start lantus 7 units SC nightly . AM blood sugar improved to 150. Will increase sliding scale to moderate dose Hypertension - continue coreg Anemia - Hb 8.8, stable Dispo: continue to wean off oxygen. Case management consulted for home oxygen
[2020-03-11] MEDS ORDERED: Enoxaparin Sodium 30 MG/0.3 ML SYRINGE SC SCH (14:30)
--- NOTE | 2020-03-11 16:45 | RAD ---
PORTABLE CHEST: History: Shortness of breath, Covid Comparison: 03-09-2020 FINDINGS: Cardiomegaly with post op sternotomy change. AICD leads. Evidence of hazy patchy infiltrate in the le ft lung base. No definite infiltrate in the right lung although there are some interstitial changes. When compared to 03-05-2020, there has been significant improvement in the bilateral infiltrates. IMPRESSION: Possibly some residual or persistent infiltrates in the lower lungs. Significant improvement from . POS: AGW
--- NOTE | 2020-03-11 17:07 | PDOC.HOSPP ---
- Subjective Encounter Date: 03/11/20 Encounter Time: 14:00 Subjective: F/u: COVID The patient has minimal cough, no shortness of breath. Per nursing staff, he has been unable to be lowered past 4.5L . He did physical therapy and his oxygen saturation dropped to 80%. - Objective Vital Signs & Weight: Vital Signs (12 hours) Temp Pulse Pulse Pulse Resp BP BP 03/11/20 15:39 98.1 F 61 22 H 03/11/20 11:41 98.1 F 64 20 03/11/20 10:05 64 64 107/51 L 88/51 L 03/11/20 08:00 98.8 F 65 22 H BP Pulse Ox Pulse Ox Pulse Ox 03/11/20 15:39 103/53 L 95 03/11/20 11:41 107/55 L 94 L 03/11/20 10:05 96 84 L 03/11/20 08:00 138/62 91 L Weight Weight 157 lb 1.6 oz I&O: 03/10/20 03/11/20 03/12/20 06:59 06:59 06:59 Intake Total 950 720 480 Output Total 1050 1050 500 Balance -100 -330 -20 Result Diagrams: 03/11/20 05:11 03/11/20 05:11 Additional Labs: Accuchecks 03/11/20 03/11/20 03/10/20 16:48 11:36 16:59 POC Glucose 299 H 241 H 251 H 03/09/20 21:15 POC Glucose 254 H Hospitalist ROS - Review of Systems Constitutional: denies: fever, chills - Medication Medications: Active Medications Generic Name Dose Route Start Last Admin Trade Name Freq PRN Reason Stop Dose Admin Albuterol Sulfate 2 puff 03/05/20 21:15 03/07/20 03:19 Albuterol 200 Puff (6.7gm Inhaler) INH 2 puff [id number] PRN Administration Wheezing Aspirin 81 mg 03/05/20 09:00 03/11/20 07:38 Aspirin 81 Mg Enteric Coated Tablet PO 81 mg DAILY CRUZITO Administration Atorvastatin Calcium 10 mg 03/05/20 21:00 03/10/20 21:42 Atorvastatin Calcium 10 Mg Tab PO 10 mg HS CRUZITO Administration Benzonatate 100 mg 03/05/20 21:11 03/06/20 21:02 Benzonatate 100 Mg Cap PO 100 mg TIDPRN PRN Administration Cough Carvedilol 25 mg 03/04/20 21:00 03/11/20 07:39 Carvedilol 25 Mg Tab PO 25 mg BID CRUZITO Administration Dexamethasone 6 mg 03/10/20 09:00 03/11/20 07:39 Dexamethasone 4 Mg/Ml Vial SLOW IVP 6 mg DAILY CRUZITO Administration Famotidine 20 mg 03/07/20 21:00 03/11/20 07:39 Famotidine 20 Mg Tab PO 20 mg Q12HR CRUZITO Administration Guaifenesin 200 mg 03/05/20 14:00 03/11/20 17:02 Guaifenesin 200 Mg Tab PO 200 mg Q4H CRUZITO Administration Azithromycin 500 mg/ Sodium 250 mls @ 250 mls/hr 03/07/20 21:00 03/10/20 21:42 Chloride IVPB 250 mls 2100 CRUZITO Administration Ceftriaxone Sodium 1 gm/ 100 mls @ 200 mls/hr 03/07/20 21:00 03/10/20 21:42 Sodium Chloride IVPB 100 mls 2100 CRUZITO Administration Insulin Glargine 7 units/ 0.07 mls @ 0 mls/hr 03/09/20 21:00 03/10/20 21:43 Miscellaneous Medication SC 0.07 mls HS CRUZITO Administration Insulin Human Lispro 0 units 03/07/20 23:11 03/08/20 22:13 Humalog 300 Units/3 Ml Vial SC 2 unit .BEDTIME SLIDING SC PRN Administration Bedtime Correctional Scale Insulin Human Lispro 0 units 03/10/20 17:14 03/11/20 17:02 Humalog 300 Units/3 Ml Vial SC 6 unit .MODERATE SLIDING SC PRN Administration Moderate Correctional Scale Losartan Potassium 25 mg 03/05/20 09:00 03/11/20 07:39 Losartan 25 Mg Tab PO 25 mg DAILY CRUZITO Administration Metformin HCl 500 mg 03/07/20 17:00 03/11/20 17:02 Metformin 500 Mg Tab PO 500 mg BID-WM CRUZITO Administration Sodium Chloride 10 ml 03/04/20 04:00 03/11/20 07:40 Flush - Normal Saline 10 Ml Syringe IVF 10 ml PRN PRN Administration Saline Flush Throat Lozenges 1 faustino 03/05/20 13:52 03/07/20 03:18 Cepastat Lozenges 1 Faustino PO 1 faustino Q2H PRN Administration Sore Throat - Exam General Appearance: NAD, awake alert Eye: PERRL, anicteric sclera ENT: normocephalic atraumatic, no oropharyngeal lesions Neck: no JVD Heart: RRR, no murmur, no gallops, no rubs Respiratory - other findings: diminished breath sounds at the bases Gastrointestinal: soft, non-tender, non-distended, normal bowel sounds, no hepatomegaly Extremities: no cyanosis, no edema Skin: normal turgor, no lesions, no rashes Hosp A/P - Plan Chest X ray: improvement in bilateral infiltrates Chest X ray 03/11: residual infiltrates in lower lungs This is a 79 year old female who presented with myalgias, cough, diarrhea, found to be COVID+ Acute hypoxic respiratory failure secondary to COVID pneumonia -Patient still on 4.5 L nasal cannula. Repeat chest x-ray 03/11 shows significant improvement from 03/05 - continue ceftriaxone and azithromycin day 5. Will continue for two more days - continue dexamethasone. Continue to wean oxygen to maintain sat > 92% - he is s/p 5 days of remdesivir. Received convalescent plasma on 02/24. His inflammatory markers are trending down. His d-dimer is 3.3, therefore will change his lovenox to therapeutic lovenox at 70 mg SC BID Type II diabetes - continue metformin. A1C 7.3 - blood sugars still elevated, will increase lantus to 7 units bid start lantus 7 units SC nightly . AM blood sugar improved to 150. Will increase sliding scale to moderate dose Hypertension - continue coreg Anemia - Hb 8.8, stable Dispo: continue to wean off oxygen. Case management consulted for home oxygen
[2020-03-11] MEDS: Atorvastatin Calcium 10 MG TAB PO SCH (20:43)
[2020-03-11] MEDS: Azithromycin 500 MG in Sodium Chloride 0.9% 250 ML 250 ML IVPB SCH (20:43)
[2020-03-11] MEDS: cefTRIAXone\\ROCEPHIN 1 GM in Sodium Chloride 0.9% 100 ML IVPB SCH (20:44)
[2020-03-11] MEDS: Enoxaparin Sodium 80 MG/0.8 ML SYRINGE SC SCH (20:44)
[2020-03-11] MEDS: Insulin Glargine 7 UNITS in Pre-Filled Syringe 1 EACH SC SCH (20:46)
[2020-03-12] MEDS: guaiFENesin 200 MG TAB PO SCH ×3 (02:00→11:23)
[2020-03-12 05:13] LABS: Hemoglobin 8.2 g/dL (14.0-18.0); Platelet Count 366 thou/uL (130-400)
[2020-03-12 05:35] LABS: ALT (SGPT) Less than 7 U/L (8-55); AST (SGOT) 12 U/L (5-34); Alkaline Phosphatase 64 U/L (40-110); Bilirubin, Direct 0.2 mg/dL (0.1-0.3); Bilirubin, Total 0.4 mg/dL (0.2-1.2); Protein, Total 5.6 g/dL (5.8-8.1)
[2020-03-12] MEDS: metFORMIN 500 MG TAB PO SCH ×2 (10:28→18:42)
[2020-03-12] MEDS: Dexamethasone 4 mg/ml Vial SLOW IVP SCH (10:28)
[2020-03-12] MEDS: Famotidine 20 MG TAB PO SCH ×2 (10:28→21:03)
[2020-03-12] MEDS: Carvedilol 25 MG TAB PO SCH ×2 (10:30→21:03)
[2020-03-12] MEDS: Losartan 25 MG TAB PO SCH (10:30)
[2020-03-12] MEDS: Aspirin 81 mg Enteric Coated Tablet PO SCH (10:30)
[2020-03-12] MEDS: Enoxaparin Sodium 80 MG/0.8 ML SYRINGE SC SCH ×2 (11:11→21:04)
[2020-03-12] MEDS: Insulin Glargine 7 UNITS in Pre-Filled Syringe SC SCH (11:13)
[2020-03-12 11:31] LABS: Actual Bicarbonate (HCO3a) 22.5 mEq/L (22-28); Analyzer IN Cardio OR; Base Excess (BEa) -0.8 mEq/L (-2.0 to +3.0); CO2 Tension 31.8 mmHg (35.0-45.0); Carboxyhemoglobin (COHb) 1.1 gm% (0.0-3.0); Hemoglobin (Hb) 8.8 g/dL (14.0-18.0); Potassium - ABG Lab 3.59 mmol/L (3.70-5.30); pH, Arterial 7.47 (7.35-7.45)
[2020-03-12 11:32] LABS: Puncture Site RBA
--- NOTE | 2020-03-12 12:54 | PDOC.HOSPP ---
- Subjective Encounter Date: 03/12/20 Encounter Time: 09:00 Subjective: The patient was weaned down to 3L oxygen this morning. While ambulating he desaturated and was placed on 6L and still desaturated to 80%. ABG showed pO2 of 55. The patient's sat has come down to 94 on 6L. HE denies chest pain, he has mild dry cough The patient does not want to be intubated if he worsens, but will consider BIPAP or CPAP - Objective Vital Signs & Weight: Vital Signs (12 hours) Temp Pulse Pulse Pulse Resp BP BP 03/12/20 12:11 98.4 F 66 17 03/12/20 10:15 98.8 F 68 17 03/12/20 09:45 03/12/20 09:21 65 66 105/59 L 130/61 03/12/20 07:47 03/12/20 04:00 97.2 F L 73 16 BP BP Pulse Ox Pulse Ox Pulse Ox 03/12/20 12:11 93/47 L 94 L 03/12/20 10:15 120/57 L 93 L 03/12/20 09:45 95 03/12/20 09:21 92 L 95 03/12/20 07:47 93 L 03/12/20 04:00 126/61 93 L Weight Weight 157 lb 1.6 oz I&O: 03/11/20 03/12/20 03/13/20 06:59 06:59 06:59 Intake Total 720 920 Output Total 1050 900 Balance -330 20 Result Diagrams: 03/12/20 05:01 03/11/20 05:11 Additional Labs: Accuchecks 03/12/20 03/12/20 03/11/20 11:04 05:38 20:22 POC Glucose 128 H 144 H 250 H 03/11/20 16:48 POC Glucose 299 H Hospitalist ROS - Review of Systems Constitutional: denies: fever, chills - Medication Medications: Active Medications Generic Name Dose Route Start Last Admin Trade Name Freq PRN Reason Stop Dose Admin Albuterol Sulfate 2 puff 03/05/20 21:15 03/07/20 03:19 Albuterol 200 Puff (6.7gm Inhaler) INH 2 puff [id number] PRN Administration Wheezing Aspirin 81 mg 03/05/20 09:00 03/12/20 10:30 Aspirin 81 Mg Enteric Coated Tablet PO 81 mg DAILY CRUZITO Administration Atorvastatin Calcium 10 mg 03/05/20 21:00 03/11/20 20:43 Atorvastatin Calcium 10 Mg Tab PO 10 mg HS CRUZITO Administration Benzonatate 100 mg 03/05/20 21:11 03/06/20 21:02 Benzonatate 100 Mg Cap PO 100 mg TIDPRN PRN Administration Cough Carvedilol 25 mg 03/04/20 21:00 03/12/20 10:30 Carvedilol 25 Mg Tab PO 25 mg BID CRUZITO Administration Enoxaparin Sodium 70 mg 03/11/20 21:00 03/12/20 11:11 Enoxaparin Sodium 80 Mg/0.8 Ml Syringe SC 70 mg 09,2099 CRUZITO Administration Famotidine 20 mg 03/07/20 21:00 03/12/20 10:28 Famotidine 20 Mg Tab PO 20 mg Q12HR CRUZITO Administration Insulin Glargine 7 units/ 0.07 mls @ 0 mls/hr 03/09/20 21:00 03/11/20 20:46 Miscellaneous Medication SC 0.07 mls HS CRUZITO Administration Insulin Glargine 7 units/ 0.07 mls @ 0 mls/hr 03/12/20 09:00 03/12/20 11:13 Miscellaneous Medication SC Not Given QAM CRUZITO Insulin Human Lispro 0 units 03/07/20 23:11 03/11/20 20:47 Humalog 300 Units/3 Ml Vial SC 2 unit .BEDTIME SLIDING SC PRN Administration Bedtime Correctional Scale Insulin Human Lispro 0 units 03/10/20 17:14 03/11/20 17:02 Humalog 300 Units/3 Ml Vial SC 6 unit .MODERATE SLIDING SC PRN Administration Moderate Correctional Scale Losartan Potassium 25 mg 03/05/20 09:00 03/12/20 10:30 Losartan 25 Mg Tab PO 25 mg DAILY CRUZITO Administration Metformin HCl 500 mg 03/07/20 17:00 03/12/20 10:28 Metformin 500 Mg Tab PO 500 mg BID-WM CRUZITO Administration Sodium Chloride 10 ml 03/04/20 04:00 03/12/20 10:28 Flush - Normal Saline 10 Ml Syringe IVF 10 ml PRN PRN Administration Saline Flush Throat Lozenges 1 faustino 03/05/20 13:52 03/07/20 03:18 Cepastat Lozenges 1 Faustino PO 1 faustino Q2H PRN Administration Sore Throat - Exam General Appearance: NAD, awake alert Eye: PERRL, anicteric sclera ENT: normocephalic atraumatic, no oropharyngeal lesions Neck: no JVD Heart: RRR, no murmur, no gallops, no rubs Respiratory: no wheezes, no rales, no ronchi Respiratory - other findings: diminished breath sounds, crackles at the bottom Gastrointestinal: soft, non-tender, non-distended, normal bowel sounds Extremities: no cyanosis, no clubbing, no edema Skin: normal turgor, no lesions, no rashes Neurological: cranial nerve grossly intact, normal sensation to touch, no weakness Musculoskeletal: normal tone, normal strength, no muscle wasting Psychiatric: normal affect, normal behavior, A&O x 3, oriented to person Hosp A/P - Plan Chest X ray: improvement in bilateral infiltrates Chest X ray 03/11: residual infiltrates in lower lungs This is a 79 year old female who presented with myalgias, cough, diarrhea, found to be COVID+ Acute hypoxic respiratory failure secondary to COVID pneumonia -Patient still on 4.5 L nasal cannula. Repeat chest x-ray 03/11 shows significant improvement from 03/05 - he is s/p ceftriaxone and azithromycin for five days. Will switch to zosyn due to worsening hypoxia ,but doubt it will help - CRP is down to 2 - will change dexamethasone to prednisone 40 mg IV q6 hours - continue therapeutic lovenox - guarded prognosis #CAD s/p CABG #History of defibrillator - continue aspirin and statin - daughter wants Dr. Betancourt to follow, so will consult. 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 I am not able to see a report about this, she says it was performed by Dr. Ca. Will touch base with him - continue aspirin and statin Type II diabetes - continue metformin. A1C 7.3 - blood sugars still elevated, will increase lantus to 7 units bid start lantus 7 units SC nightly . AM blood sugar improved to 150. Will increase sliding scale to moderate dose Hypertension - continue coreg Anemia - Hb 8.8, stable Dispo: continue to wean off oxygen. Case management consulted for home oxygen
[2020-03-12] MEDS: Piperacillin/Tazobactam 3.375 GM in Sodium Chloride 0.9% 100 ML IVPB SCH ×2 (15:07→21:02)
--- NOTE | 2020-03-12 17:09 | PRG ---
DATE OF SERVICE: 03/12/2020 SUBJECTIVE: Mr. Andrade is sitting by the bedside. He is awake and alert, has nasal cannula on at 6 L. He states that he is feeling better. He is coughing intermittently. He is still somewhat tachypneic. OBJECTIVE: LUNGS: Symmetric air entry. Not many crackles or wheezing. HEART: S1 and S2, regular rate. ABDOMEN: Soft. Not distended. EXTREMITIES: No edema. Moves all extremities equally. LABORATORY DATA: His white cell count is 9.1, hemoglobin 8.2, platelets 266. Ferritin is down to 203. C-reactive protein is down markedly to 2.48. Coagulase-negative Staphylococcus in one set of blood cultures, likely contaminant. Repeat chest x-ray from yesterday, hazy infiltrates, left lung base with significant improvement since March 05. ASSESSMENT AND DISCUSSION: Hypertension, ischemic cardiomyopathy, severe COVID pneumonia. This is the 12th day of illness. Both inflammatory markers and lung findings are improving steadily, but he is still requiring quite a bit of oxygen supplementation, so he is in a quite marginal state right now. He desaturates quite a bit at the lightest effort. Published meta-analysis with the largest corticosteroid administration trials for SARS-CoV-2 infection has demonstrated that there was no dose response relationship. In other words, increasing the dosage of corticosteroids does not improve outcome and only leads to higher frequency of adverse reactions including immunosuppression, superimposed infections, myopathy, and so on. So, I would advise tapering the dose of corticosteroid. Also, the incidence of secondary infections and COVID-19 as opposed to influenza is minimal, so I would advise discontinuation of antimicrobial therapy since there is no evidence of a superimposed bacterial infection. Job ID: [id number] [facility]
[2020-03-12] MEDS ORDERED: Zinc Sulfate 220 MG CAP PO SCH (18:00)
[2020-03-12] MEDS ORDERED: Piperacillin/Tazobactam 3.375 GM in Sodium Chloride 0.9% 100 ML IVPB SCH (18:00)
[2020-03-12] MEDS ORDERED: Ascorbic Acid 500 mg Chewable Tablet PO SCH (18:00)
[2020-03-12] MEDS: methylPREDNISolone Sod Succ 40 MG VIAL IVP SCH ×2 (18:43→23:15)
[2020-03-12] MEDS: HumaLOG 300 UNITS/3 ML VIAL SC PRN ×2 (18:43→22:04)
[2020-03-12] MEDS: Atorvastatin Calcium 10 MG TAB PO SCH (21:03)
[2020-03-12] MEDS: Insulin Glargine 7 UNITS in Pre-Filled Syringe 1 EACH SC SCH (21:04)
[2020-03-12] MEDS: guaiFENesin 200 MG TAB PO PRN (22:29)
[2020-03-13] MEDS: guaiFENesin 200 MG TAB PO PRN ×2 (05:00→21:05)
[2020-03-13] MEDS: Piperacillin/Tazobactam 3.375 GM in Sodium Chloride 0.9% 100 ML IVPB SCH ×3 (05:00→15:00)
[2020-03-13] MEDS: methylPREDNISolone Sod Succ 40 MG VIAL IVP SCH ×2 (05:02→12:38)
[2020-03-13 05:44] LABS: Platelet Count 355 thou/uL (130-400)
[2020-03-13] MEDS: HumaLOG 300 UNITS/3 ML VIAL SC PRN ×4 (05:59→21:02)
[2020-03-13 06:08] LABS: ALT (SGPT) Less than 7 U/L (8-55); AST (SGOT) 13 U/L (5-34); Alkaline Phosphatase 65 U/L (40-110); Bilirubin, Direct 0.2 mg/dL (0.1-0.3); Bilirubin, Total 0.5 mg/dL (0.2-1.2); Protein, Total 5.5 g/dL (5.8-8.1)
[2020-03-13] MEDS: Enoxaparin Sodium 80 MG/0.8 ML SYRINGE SC SCH ×2 (09:02→20:44)
[2020-03-13] MEDS: Aspirin 81 mg Enteric Coated Tablet PO SCH (09:03)
[2020-03-13] MEDS: Famotidine 20 MG TAB PO SCH ×2 (09:03→20:44)
[2020-03-13] MEDS: Zinc Sulfate 220 MG CAP PO SCH (09:04)
[2020-03-13] MEDS: Carvedilol 25 MG TAB PO SCH ×2 (09:04→09:15)
[2020-03-13] MEDS: Losartan 25 MG TAB PO SCH ×2 (09:04→09:14)
[2020-03-13] MEDS: Ascorbic Acid 500 mg Chewable Tablet PO SCH (09:04)
[2020-03-13] MEDS: Insulin Glargine 7 UNITS in Pre-Filled Syringe SC SCH (09:05)
[2020-03-13] MEDS: metFORMIN 500 MG TAB PO SCH ×2 (09:05→17:34)
--- NOTE | 2020-03-13 14:52 | PDOC.HOSPP ---
- Subjective Encounter Date: 03/13/20 Encounter Time: 11:00 Subjective: F/u: COVID pneumonia THe patient is doing about the same. He has mild dry cough. He reported some dizziness and lightheadedness while ambulating that lasted 10 seconds then resolved. Blood pressure medicines were held this morning He is on 6L saturating 97% at rest. He has not ambulated yet with PT - Objective Vital Signs & Weight: Vital Signs (12 hours) Temp Pulse Resp BP BP BP Pulse Ox 03/13/20 13:23 124/69 03/13/20 11:45 98.1 F 74 25 H 132/61 97 03/13/20 09:04 98 03/13/20 08:16 98.6 F 67 21 H 124/56 L 98 03/13/20 07:57 93 L 03/13/20 03:26 98.1 F 69 20 133/64 93 L Weight Admit Weight 157 lb 1.6 oz Weight 151 lb 4.8 oz I&O: 03/12/20 03/13/20 03/14/20 06:59 06:59 06:59 Intake Total 920 300 Output Total 900 750 Balance 20 -450 Result Diagrams: 03/13/20 05:35 03/11/20 05:11 Additional Labs: Accuchecks 03/13/20 03/13/20 03/12/20 11:05 05:50 21:09 POC Glucose 315 H 220 H 313 H 03/12/20 17:10 POC Glucose 224 H Hospitalist ROS - Review of Systems Constitutional: denies: fever, chills - Medication Medications: Active Medications Generic Name Dose Route Start Last Admin Trade Name Freq PRN Reason Stop Dose Admin Albuterol Sulfate 2 puff 03/05/20 21:15 03/07/20 03:19 Albuterol 200 Puff (6.7gm Inhaler) INH 2 puff [id number] PRN Administration Wheezing Ascorbic Acid 500 mg 03/13/20 09:00 03/13/20 09:04 Ascorbic Acid 500 Mg Chewable Tablet PO 500 mg DAILY CRUZITO Administration Aspirin 81 mg 03/05/20 09:00 03/13/20 09:03 Aspirin 81 Mg Enteric Coated Tablet PO 81 mg DAILY CRUZITO Administration Atorvastatin Calcium 10 mg 03/05/20 21:00 03/12/20 21:03 Atorvastatin Calcium 10 Mg Tab PO 10 mg HS CRUZITO Administration Benzonatate 100 mg 03/05/20 21:11 03/06/20 21:02 Benzonatate 100 Mg Cap PO 100 mg TIDPRN PRN Administration Cough Carvedilol 25 mg 03/04/20 21:00 03/13/20 09:15 Carvedilol 25 Mg Tab PO Not Given BID CRUZITO Enoxaparin Sodium 70 mg 03/11/20 21:00 03/13/20 09:02 Enoxaparin Sodium 80 Mg/0.8 Ml Syringe SC 70 mg 0900,2100 CRUZITO Administration Famotidine 20 mg 03/07/20 21:00 03/13/20 09:03 Famotidine 20 Mg Tab PO 20 mg Q12HR CRUZITO Administration Guaifenesin 200 mg 03/12/20 11:30 03/13/20 05:00 Guaifenesin 200 Mg Tab PO 200 mg Q4H PRN Administration Cough Insulin Glargine 7 units/ 0.07 mls @ 0 mls/hr 03/09/20 21:00 03/12/20 21:04 Miscellaneous Medication SC 0.07 mls HS CRUZITO Administration Insulin Glargine 7 units/ 0.07 mls @ 0 mls/hr 03/12/20 09:00 03/13/20 09:05 Miscellaneous Medication SC 0.07 mls QAM CRUZITO Administration Piperacillin Sod/Tazobactam 100 mls @ 200 mls/hr 03/12/20 14:00 03/13/20 09:13 Sod 3.375 gm/ Sodium Chloride IVPB 100 mls 0400,1000,1400,2000 CRUZITO Administration Insulin Human Lispro 0 units 03/07/20 23:11 03/12/20 22:04 Humalog 300 Units/3 Ml Vial SC 4 unit .BEDTIME SLIDING SC PRN Administration Bedtime Correctional Scale Insulin Human Lispro 0 units 03/10/20 17:14 03/13/20 12:35 Humalog 300 Units/3 Ml Vial SC 8 unit .MODERATE SLIDING SC PRN Administration Moderate Correctional Scale Losartan Potassium 25 mg 03/05/20 09:00 03/13/20 09:14 Losartan 25 Mg Tab PO Not Given DAILY CRUZITO Metformin HCl 500 mg 03/07/20 17:00 03/13/20 09:05 Metformin 500 Mg Tab PO 500 mg BID-WM CRUZITO Administration Methylprednisolone Sodium Succinate 40 mg 03/12/20 18:00 03/13/20 12:38 Methylprednisolone Sod Succ 40 Mg Vial IVP 40 mg Q6HR CRUZITO Administration Sodium Chloride 10 ml 03/04/20 04:00 03/13/20 09:03 Flush - Normal Saline 10 Ml Syringe IVF 10 ml PRN PRN Administration Saline Flush Throat Lozenges 1 faustino 03/05/20 13:52 03/07/20 03:18 Cepastat Lozenges 1 Faustino PO 1 faustino Q2H PRN Administration Sore Throat Zinc Sulfate 220 mg 03/13/20 09:00 03/13/20 09:04 Zinc Sulfate 220 Mg Cap PO 220 mg DAILY CRUZITO Administration - Exam General Appearance: NAD, awake alert Eye: PERRL ENT: normocephalic atraumatic, no oropharyngeal lesions Heart: RRR, no murmur, no gallops, no rubs Respiratory - other findings: diminished breath sounds at bases Gastrointestinal: soft, non-tender, non-distended, normal bowel sounds Extremities: no cyanosis, no edema Skin: normal turgor, no lesions, no rashes Neurological: cranial nerve grossly intact, normal sensation to touch, no weakness Musculoskeletal: normal tone, normal strength, no muscle wasting Hosp A/P - Plan Chest X ray: improvement in bilateral infiltrates Chest X ray 03/11: residual infiltrates in lower lungs This is a 79 year old female who presented with myalgias, cough, diarrhea, found to be COVID+ Acute hypoxic respiratory failure secondary to COVID pneumonia -Patient still on 4.5 L nasal cannula. Repeat chest x-ray 03/11 shows significant improvement from 03/05 - he is s/p ceftriaxone and azithromycin for five days. Tried zosyn for 24 anjel rs, but will discontinue since no significant difference - Received dexamethasone for 6 days, switched to methylprednisolone 40 mg IV q6 hours 03/12. Will taper down to 40 mg daily - continue therapeutic lovenox (okay per Dr. Betancourt) - home oxygen evaluation once oxygen requirements have remained stable for 24-48 hours - CRP decreased to 2, but increased slightly to 4, will monitor tomorrow #CAD s/p CABG #History of defibrillator - continue aspirin and statin -Dr. Betancourt consulted per patient request History of carotid stenting s/p carotid endarterectomy - continue aspirin and statin Type II diabetes - continue metformin. A1C 7.3 - continue lantus 7 units BID. Blood sugars high 200-300, but anticipate it will improve since tapering steroids Hypertension - BP 120 without meds, held coreg and losartan this mroning Anemia - Hb 8.8, stable
[2020-03-13] MEDS: Atorvastatin Calcium 10 MG TAB PO SCH (20:43)
[2020-03-13] MEDS: Carvedilol 6.25 MG TAB PO SCH (20:44)
[2020-03-13] MEDS: Insulin Glargine 7 UNITS in Pre-Filled Syringe 1 EACH SC SCH (20:48)
--- NOTE | 2020-03-13 22:23 | PDOC.EVN ---
Event Note - Event Note Event Note: Daughter has requested vitamin D supplementation. Will check am vitamin D levels prior to ordering
[2020-03-13] MEDS ORDERED: Insulin Glargine 3 UNITS in Pre-Filled Syringe 1 EACH SC SCH (23:00)
--- NOTE | 2020-03-14 01:40 | CON ---
DATE OF CONSULTATION: 03/13/2020 REASON FOR CONSULTATION: Congestive heart failure in the setting of COVID pneumonia. HISTORY OF PRESENT ILLNESS: Mr. Andrade is a 79-year-old gentleman, with a history of coronary artery disease and previous bypass surgery. The patient's ejection fraction runs in the 20% to 25% range. Patient is admitted to the hospital with fever and was COVID positive. He has developed pneumonia. He has been in the hospital for quite some time now and he is improving only very slowly. We have been consulted about other recommendations from a cardiac standpoint. Patient does have a history of as mentioned coronary artery disease. He underwent recent bilateral carotid endarterectomies which were done successfully. Patient also underwent bypass surgery in March 2015, which was done successfully. At that time, he had bypass to the LAD, diagonal, and posterior descending artery. The patient at home was taking carvedilol 25 mg twice a day as well as losartan. Patient as mentioned is recovering very slowly. I spoke him on the phone. REVIEW OF SYSTEMS: CONSTITUTIONAL: Feels weak and fatigue. VISION: No changes. HEARING: No changes. PULMONARY: Positive shortness of breath. CARDIAC: No chest pain. GASTROINTESTINAL: No nausea, vomiting, or diarrhea now, earlier he had some diarrhea. PHYSICAL EXAMINATION: Not done per COVID protocols, trying to minimize patient contacts, but I did discuss the situation with the patient by the phone and reviewed the chart from the hospitalization. VITAL SIGNS: Blood pressure is 127/60 and pulse is 80. Reviewing the records, he does have COVID positive nasal swab. Chest x-rays compatible with COVID pneumonia, but also the patient had a laboratory markedly increased BNP at 1437 on the . In addition, the ferritin level is trending down, indicating inflammatory component continues to be improving. ASSESSMENT: 1. COVID pneumonia. Clinically that part seems to be improving with decreased ferritin levels. 2. Previous defibrillator implantation. The device appears to be sensing and pacing normally on the rhythm strips. 3. Congestive heart failure, chronic, probably some acute component, probably not well compensated yet based on the increased BNP and very slow improvement. PLAN: 1. We will reduce carvedilol to 12.5 mg twice a day. 2. Add daily Lasix actually twice a day. 3. Potassium twice a day. 4. Check BMP on Wednesday. 5. Dr. Arriaza will be seeing him in the next few days. Job ID: [id number] [facility]
[2020-03-14] MEDS: Furosemide 20 MG/2 ML VIAL SLOW IVP SCH ×2 (05:10→14:57)
[2020-03-14 05:46] LABS: Hemoglobin 8.1 g/dL (14.0-18.0); Platelet Count 373 thou/uL (130-400)
[2020-03-14 06:11] LABS: ALT (SGPT) Less than 7 U/L (8-55); AST (SGOT) 12 U/L (5-34); Alkaline Phosphatase 85 U/L (40-110); Anion Gap 13 mmol/L (10-20); BUN (Urea Nitrogen) 32 mg/dL (8.4-25.7); Bilirubin, Direct 0.2 mg/dL (0.1-0.3); Bilirubin, Total 0.3 mg/dL (0.2-1.2); Calc. Creatinine Clearance 77 mL/min (70-130); Carbon Dioxide 26 mmol/L (23-31); Chloride 106 mmol/L (98-107); Glucose 218 mg/dL (83-110); Potassium 4.1 mmol/L (3.5-5.1); Protein, Total 5.5 g/dL (5.8-8.1); Sodium 141 mmol/L (136-145)
[2020-03-14] MEDS: HumaLOG 300 UNITS/3 ML VIAL SC PRN ×3 (06:31→18:10)
[2020-03-14] MEDS: Insulin Glargine 5 UNITS in Pre-Filled Syringe 1 EACH SC SCH (09:42)
[2020-03-14] MEDS: Enoxaparin Sodium 80 MG/0.8 ML SYRINGE SC SCH ×2 (09:42→20:32)
[2020-03-14] MEDS: Cholecalciferol (Vitamin D3) 400 UNITS TAB PO SCH (09:43)
[2020-03-14] MEDS: Potassium Chloride 20 MEQ TAB PO SCH ×2 (09:43→18:08)
[2020-03-14] MEDS: Famotidine 20 MG TAB PO SCH ×2 (09:43→20:32)
[2020-03-14] MEDS: Losartan 25 MG TAB PO SCH (09:43)
[2020-03-14] MEDS: Aspirin 81 mg Enteric Coated Tablet PO SCH (09:43)
[2020-03-14] MEDS: metFORMIN 500 MG TAB PO SCH ×2 (09:43→18:08)
[2020-03-14] MEDS: Carvedilol 6.25 MG TAB PO SCH ×2 (09:44→20:32)
[2020-03-14] MEDS: methylPREDNISolone Sod Succ 40 MG VIAL IVP SCH (09:44)
[2020-03-14] MEDS: Zinc Sulfate 220 MG CAP PO SCH (09:44)
[2020-03-14] MEDS: Ascorbic Acid 500 mg Chewable Tablet PO SCH (09:44)
[2020-03-14] MEDS: Albuterol 200 PUFF (6.7GM INHALER) INH PRN ×2 (12:12→21:07)
--- NOTE | 2020-03-14 14:07 | PDOC.HOSPP ---
- Subjective Encounter Date: 03/14/20 Encounter Time: 10:45 Subjective: Patient up in bed no complaints. However I was notified by the nursing staff that patient desats on minimal movement - Objective Vital Signs & Weight: Vital Signs (12 hours) Temp Pulse Resp BP Pulse Ox 03/14/20 11:30 98 F 82 22 H 117/59 L 91 L 03/14/20 07:52 98.3 F 68 20 127/62 97 03/14/20 03:38 98.5 F 73 18 146/70 H 99 Weight Admit Weight 157 lb 1.6 oz Weight 149 lb I&O: 03/13/20 03/14/20 03/15/20 06:59 06:59 06:59 Intake Total 300 1130 Output Total 750 930 600 Balance -450 200 -600 Result Diagrams: 03/14/20 05:11 03/14/20 05:11 Additional Labs: Accuchecks 03/14/20 03/14/20 03/13/20 10:33 05:47 20:54 POC Glucose 214 H 196 H 347 H 03/13/20 16:43 POC Glucose 307 H Hospitalist ROS - Review of Systems Respiratory: reports: shortness of breath Cardiovascular: denies: chest pain, palpitations, orthopnea, paroxysmal noc. dyspnea, edema, light headedness, other Gastrointestinal: denies: nausea, vomiting, abdominal pain, diarrhea, constipation, melena, hematochezia, other Genitourinary: denies: dysuria, frequency, incontinence, hematuria, retention, other - Medication Medications: Active Medications Generic Name Dose Route Start Last Admin Trade Name Freq PRN Reason Stop Dose Admin Albuterol Sulfate 2 puff 03/05/20 21:15 03/14/20 12:12 Albuterol 200 Puff (6.7gm Inhaler) INH 2 puff [id number] PRN Administration Wheezing Ascorbic Acid 500 mg 03/13/20 09:00 03/14/20 09:44 Ascorbic Acid 500 Mg Chewable Tablet PO 500 mg DAILY CRUZITO Administration Aspirin 81 mg 03/05/20 09:00 03/14/20 09:43 Aspirin 81 Mg Enteric Coated Tablet PO 81 mg DAILY [facility]O Administration Atorvastatin Calcium 10 mg 03/05/20 21:00 03/13/20 20:43 Atorvastatin Calcium 10 Mg Tab PO 10 mg HS [facility]O Administration Benzonatate 100 mg 03/05/20 21:11 03/06/20 21:02 Benzonatate 100 Mg Cap PO 100 mg TIDPRN PRN Administration Cough Carvedilol 12.5 mg 03/13/20 21:00 03/14/20 09:44 Carvedilol 6.25 Mg Tab PO 12.5 mg BID [facility]O Administration Cholecalciferol 400 units 03/14/20 09:00 03/14/20 09:43 Cholecalciferol (Vitamin D3) 400 Units Tab PO 400 units DAILY [facility]O Administration Enoxaparin Sodium 70 mg 03/11/20 21:00 03/14/20 09:42 Enoxaparin Sodium 80 Mg/0.8 Ml Syringe SC 70 mg 0900,2100 [facility] Administration Famotidine 20 mg 03/07/20 21:00 03/14/20 09:43 Famotidine 20 Mg Tab PO 20 mg Q12HR [facility] Administration Furosemide 20 mg 03/14/20 06:00 03/14/20 05:10 Furosemide 20 Mg/2 Ml Vial SLOW IVP 20 mg 0600,1400 [facility] Administration Guaifenesin 200 mg 03/12/20 11:30 03/13/20 21:05 Guaifenesin 200 Mg Tab PO 200 mg Q4H PRN Administration Cough Insulin Glargine 5 units/ 0.05 mls @ 0 mls/hr 03/14/20 09:00 03/14/20 09:42 Miscellaneous Medication SC 0.05 mls QAM [facility] Administration Insulin Human Lispro 0 units 03/07/20 23:11 03/13/20 21:02 Humalog 300 Units/3 Ml Vial SC 4 unit .BEDTIME SLIDING SC PRN Administration Bedtime Correctional Scale Insulin Human Lispro 0 units 03/10/20 17:14 03/14/20 12:04 Humalog 300 Units/3 Ml Vial SC 4 unit .MODERATE SLIDING SC PRN Administration Moderate Correctional Scale Losartan Potassium 25 mg 03/05/20 09:00 03/14/20 09:43 Losartan 25 Mg Tab PO 25 mg DAILY CRU[facility]O Administration Metformin HCl 500 mg 03/07/20 17:00 03/14/20 09:43 Metformin 500 Mg Tab PO 500 mg BID-WM [facility] Administration Methylprednisolone Sodium Succinate 40 mg 03/14/20 09:00 03/14/20 09:44 Methylprednisolone Sod Succ 40 Mg Vial IVP 40 mg DAILY [facility] Administration Potassium Chloride 20 meq 03/14/20 08:00 03/14/20 09:43 Potassium Chloride 20 Meq Tab PO 20 meq BID-WM [facility]O Administration Sodium Chloride 10 ml 03/04/20 04:00 03/14/20 09:44 Flush - Normal Saline 10 Ml Syringe IVF 10 ml PRN PRN Administration Saline Flush Throat Lozenges 1 faustino 03/05/20 13:52 03/07/20 03:18 Cepastat Lozenges 1 Faustino PO 1 faustino Q2H PRN Administration Sore Throat Zinc Sulfate 220 mg 03/13/20 09:00 03/14/20 09:44 Zinc Sulfate 220 Mg Cap PO 220 mg DAILY [facility] Administration - Exam Neck: negative: supple, symmetric, no JVD, no thyromegaly, no lymphadenopathy, no carotid bruit, JVD Heart: negative: RRR, no murmur, no gallops, no rubs, normal peripheral pulses, irregular, diminshed peripheral pulses, murmur present, II/IV, III/IV Respiratory: negative: CTAB, no wheezes, no rales, no ronchi, normal chest exp ansion, no tachypnea, normal percussion, rales, rhonchi, tachypneic, wheezes Gastrointestinal: negative: soft, non-tender, non-distended, normal bowel sounds, no palpable masses, no hepatomegaly, no splenomegaly, no bruit, no guarding, no rigidity, tender to palpation, distended, diminished bowl sounds, voluntary guarding Hosp A/P (1) CAD (coronary artery disease) Code(s): I25.10 - ATHSCL HEART DISEASE OF [place] CORONARY ARTERY W/O ANG PCTRS Status: Chronic (2) Hypertension Code(s): I10 - ESSENTIAL (PRIMARY) HYPERTENSION Status: Chronic (3) Acute respiratory failure with hypoxia Code(s): J96.01 - ACUTE RESPIRATORY FAILURE WITH HYPOXIA Status: Acute (4) COVID-19 Code(s): U07.1 - COVID-19 Status: Acute - Plan Patient currently on 6 L desats on minimal movement. He does not appear tachypneic on physical examination. Patient currently on Lasix. Will get a chest x-ray in a.m. Inflammatory markers continue to improve. We will continue current treatment however will check labs in the morning. Patient currently on DVT prophylaxis. We will add a steroid inhaler.
[2020-03-14] MEDS: Mometasone 100 MCG/Formoterol 5 MCG 120 PUFF INHALER INH SCH (20:31)
[2020-03-14] MEDS: Atorvastatin Calcium 10 MG TAB PO SCH (20:32)
[2020-03-14] MEDS: Insulin Glargine 10 UNITS in Pre-Filled Syringe 1 EACH SC SCH (20:33)
[2020-03-15 05:17] LABS: #Lymphocytes 0.6 thou/uL (1.20-3.40); #Monocytes 0.3 thou/uL (0.11-0.59); %Eosinophils 0.3 % (0.0-10.0); %Lymphocytes 5.7 % (21.0-51.0); %Monocytes 2.9 % (0.0-10.0); %Neutrophils 91.1 % (42.0-75.0); Hemoglobin 8.4 g/dL (14.0-18.0); Mean Corpuscular HGB CONC 31.3 g/dL (32.0-36.0); Mean Corpuscular Hemoglobin 26.9 pg (27.0-31.0); Mean Corpuscular Volume 85.9 fL (78.0-98.0); Mean Platelet Volume 8.3 fL (7.4-10.4); Platelet Count 339 thou/uL (130-400); RBC Distribution Width 12.7 % (11.5-14.5); Red Blood Cell (RBC) Count 3.12 mill/uL (4.70-6.10); White Blood Cell (WBC) Count 9.9 thou/uL (4.8-10.8)
[2020-03-15 05:39] LABS: ALT (SGPT) 11 U/L (8-55); AST (SGOT) 13 U/L (5-34); Alkaline Phosphatase 74 U/L (40-110); Anion Gap 11 mmol/L (10-20); BUN (Urea Nitrogen) 32 mg/dL (8.4-25.7); Bilirubin, Direct 0.2 mg/dL (0.1-0.3); Bilirubin, Total 0.3 mg/dL (0.2-1.2); Calc. Creatinine Clearance 77 mL/min (70-130); Calcium 8.8 mg/dL (7.8-10.44); Carbon Dioxide 27 mmol/L (23-31); Chloride 104 mmol/L (98-107); Globulin 2.4 g/dL (2.4-3.5); Glucose 124 mg/dL (83-110); Potassium 4.2 mmol/L (3.5-5.1); Protein, Total 5.4 g/dL (5.8-8.1); Sodium 138 mmol/L (136-145)
[2020-03-15] MEDS: Mometasone 100 MCG/Formoterol 5 MCG 120 PUFF INHALER INH SCH ×2 (05:51→18:25)
[2020-03-15] MEDS: Furosemide 20 MG/2 ML VIAL SLOW IVP SCH ×2 (05:51→14:18)
[2020-03-15] MEDS: Insulin Glargine 5 UNITS in Pre-Filled Syringe 1 EACH SC SCH (08:14)
[2020-03-15] MEDS: Enoxaparin Sodium 80 MG/0.8 ML SYRINGE SC SCH ×2 (08:15→19:43)
[2020-03-15] MEDS: Ascorbic Acid 500 mg Chewable Tablet PO SCH (08:16)
[2020-03-15] MEDS: Carvedilol 6.25 MG TAB PO SCH ×2 (08:16→19:44)
[2020-03-15] MEDS: methylPREDNISolone Sod Succ 40 MG VIAL IVP SCH (08:17)
[2020-03-15] MEDS: Aspirin 81 mg Enteric Coated Tablet PO SCH (08:17)
[2020-03-15] MEDS: metFORMIN 500 MG TAB PO SCH ×2 (08:17→16:50)
[2020-03-15] MEDS: Potassium Chloride 20 MEQ TAB PO SCH ×2 (08:17→16:50)
[2020-03-15] MEDS: Famotidine 20 MG TAB PO SCH ×2 (08:17→19:44)
[2020-03-15] MEDS: Cholecalciferol (Vitamin D3) 400 UNITS TAB PO SCH (08:17)
[2020-03-15] MEDS: Zinc Sulfate 220 MG CAP PO SCH (08:17)
[2020-03-15] MEDS: Losartan 25 MG TAB PO SCH (08:17)
[2020-03-15] MEDS: Cepastat Lozenges 1 LOZ PO PRN (08:18)
--- NOTE | 2020-03-15 08:22 | RAD ---
EXAM: Single view of the chest HISTORY: Shortness of breath COMPARISON: 03/11/2020 FINDINGS: Single view of the chest shows an enlarged but stable cardiomediastinal silhouette. Patien t is status post sternotomy. The pacemaker is unchanged in position. There are diffuse mixed multifocal opacities in the lungs. These have worsened compared to the prior exam. Degenerative key es are seen in the spine. IMPRESSION: Worsening multifocal infiltrates.
[2020-03-15] MEDS: HumaLOG 300 UNITS/3 ML VIAL SC PRN ×3 (12:19→21:13)
[2020-03-15] MEDS: Insulin Glargine 10 UNITS in Pre-Filled Syringe 1 EACH SC SCH (19:43)
[2020-03-15] MEDS: Atorvastatin Calcium 10 MG TAB PO SCH (19:44)
[2020-03-16 05:36] LABS: Hemoglobin 8.7 g/dL (14.0-18.0); Platelet Count 326 thou/uL (130-400)
[2020-03-16 05:57] LABS: ALT (SGPT) 13 U/L (8-55); AST (SGOT) 11 U/L (5-34); Alkaline Phosphatase 71 U/L (40-110); Bilirubin, Direct 0.1 mg/dL (0.1-0.3); Bilirubin, Total 0.3 mg/dL (0.2-1.2); Protein, Total 5.3 g/dL (5.8-8.1)
[2020-03-16] MEDS: Furosemide 20 MG/2 ML VIAL SLOW IVP SCH (06:23)
[2020-03-16] MEDS: Mometasone 100 MCG/Formoterol 5 MCG 120 PUFF INHALER INH SCH ×2 (06:23→19:27)
[2020-03-16] MEDS: Insulin Glargine 5 UNITS in Pre-Filled Syringe 1 EACH SC SCH (09:21)
[2020-03-16] MEDS: Enoxaparin Sodium 80 MG/0.8 ML SYRINGE SC SCH ×2 (09:21→20:41)
[2020-03-16] MEDS: Famotidine 20 MG TAB PO SCH ×2 (09:22→20:42)
[2020-03-16] MEDS: Ascorbic Acid 500 mg Chewable Tablet PO SCH (09:22)
[2020-03-16] MEDS: Losartan 25 MG TAB PO SCH (09:22)
[2020-03-16] MEDS: Carvedilol 6.25 MG TAB PO SCH ×3 (09:22→20:48)
[2020-03-16] MEDS: Aspirin 81 mg Enteric Coated Tablet PO SCH (09:22)
[2020-03-16] MEDS: Potassium Chloride 20 MEQ TAB PO SCH ×2 (09:22→16:28)
[2020-03-16] MEDS: Cholecalciferol (Vitamin D3) 400 UNITS TAB PO SCH (09:22)
[2020-03-16] MEDS: Zinc Sulfate 220 MG CAP PO SCH (09:22)
[2020-03-16] MEDS: metFORMIN 500 MG TAB PO SCH ×2 (09:22→16:28)
[2020-03-16] MEDS ORDERED: Sodium Chloride 0.9% 500 ML IV SCH (11:15)
--- NOTE | 2020-03-16 15:39 | PDOC.HOSPP ---
- Subjective Encounter Date: 03/15/20 Encounter Time: 11:30 Subjective: Patient up in bed no complaints. Patient became very hypoxic on minimal movement at this time high flow was started. - Objective Vital Signs & Weight: Vital Signs (12 hours) Temp Pulse Pulse Pulse Pulse Resp BP 03/16/20 13:00 98.7 F 81 18 03/16/20 10:19 75 78 73 88/49 L 03/16/20 09:26 97.6 F 71 20 03/16/20 08:00 97.6 F 71 20 03/16/20 03:50 98.2 F 70 16 BP BP BP BP Pulse Ox Pulse Ox Pulse Ox 03/16/20 13:00 95/51 L 99 03/16/20 10:19 97/52 L 96/55 L 81 L 93 L 03/16/20 09:26 122/60 99 03/16/20 08:00 122/60 99 03/16/20 03:50 121/60 100 Pulse Ox 03/16/20 13:00 03/16/20 10:19 93 L 03/16/20 09:26 03/16/20 08:00 03/16/20 03:50 Weight Admit Weight 157 lb 1.6 oz Weight 149 lb I&O: 03/15/20 03/16/20 03/17/20 06:59 06:59 06:59 Intake Total 1040 1380 600 Output Total 1450 1900 Balance -410 -520 600 Result Diagrams: 03/16/20 04:57 03/15/20 04:59 Additional Labs: Accuchecks 03/16/20 03/16/20 03/15/20 11:40 06:19 19:50 POC Glucose 170 H 129 H 241 H 03/15/20 16:20 POC Glucose 309 H Hospitalist ROS - Review of Systems Respiratory: reports: shortness of breath Cardiovascular: denies: chest pain, palpitations, orthopnea, paroxysmal noc. dyspnea, edema, light headedness, other Gastrointestinal: denies: nausea, vomiting, abdominal pain, diarrhea, constipation, melena, hematochezia, other Genitourinary: denies: dysuria, frequency, incontinence, hematuria, retention, other - Medication Medications: Active Medications Generic Name Dose Route Start Last Admin Trade Name Freq PRN Reason Stop Dose Admin Albuterol Sulfate 2 puff 03/05/20 21:15 03/14/20 21:07 Albuterol 200 Puff (6.7gm Inhaler) INH 2 puff [id number] PRN Administration Wheezing Ascorbic Acid 500 mg 03/13/20 09:00 03/16/20 09:22 Ascorbic Acid 500 Mg Chewable Tablet PO 500 mg DAILY CRU[facility]O Administration Aspirin 81 mg 03/05/20 09:00 03/16/20 09:22 Aspirin 81 Mg Enteric Coated Tablet PO 81 mg DAILY [facility] Administration Atorvastatin Calcium 10 mg 03/05/20 21:00 03/15/20 19:44 Atorvastatin Calcium 10 Mg Tab PO 10 mg HS [facility] Administration Benzonatate 100 mg 03/05/20 21:11 03/06/20 21:02 Benzonatate 100 Mg Cap PO 100 mg TIDPRN PRN Administration Cough Carvedilol 12.5 mg 03/13/20 21:00 03/16/20 09:22 Carvedilol 6.25 Mg Tab PO 12.5 mg BID [facility] Administration Cholecalciferol 400 units 03/14/20 09:00 03/16/20 09:22 Cholecalciferol (Vitamin D3) 400 Units Tab PO 400 units DAILY [facility] Administration Enoxaparin Sodium 70 mg 03/11/20 21:00 03/16/20 09:21 Enoxaparin Sodium 80 Mg/0.8 Ml Syringe SC 70 mg 0900,2100 [facility] Administration Famotidine 20 mg 03/07/20 21:00 03/16/20 09:22 Famotidine 20 Mg Tab PO 20 mg Q12HR [facility] Administration Furosemide 20 mg 03/14/20 06:00 03/16/20 06:23 Furosemide 20 Mg/2 Ml Vial SLOW IVP 20 mg 0600,1400 [facility] Administration Guaifenesin 200 mg 03/12/20 11:30 03/13/20 21:05 Guaifenesin 200 Mg Tab PO 200 mg Q4H PRN Administration Cough Insulin Glargine 10 units/ 0.1 mls @ 0 mls/hr 03/14/20 21:00 03/15/20 19:43 Miscellaneous Medication SC 0.1 mls HS CR[facility]O Administration Insulin Glargine 5 units/ 0.05 mls @ 0 mls/hr 03/14/20 09:00 03/16/20 09:21 Miscellaneous Medication SC 0.05 mls QAM [facility] Administration Insulin Human Lispro 0 units 03/07/20 23:11 03/15/20 21:13 Humalog 300 Units/3 Ml Vial SC 2 unit .BEDTIME SLIDING SC PRN Administration Bedtime Correctional Scale Insulin Human Lispro 0 units 03/10/20 17:14 03/15/20 16:33 Humalog 300 Units/3 Ml Vial SC 8 unit .MODERATE SLIDING SC PRN Administration Moderate Correctional Scale Losartan Potassium 25 mg 03/05/20 09:00 03/16/20 09:22 Losartan 25 Mg Tab PO 25 mg DAILY [facility] Administration Metformin HCl 500 mg 03/07/20 17:00 03/16/20 09:22 Metformin 500 Mg Tab PO 500 mg BID-WM [facility] Administration Mometasone Furoate/Formoterol Fumar 1 puff 03/14/20 18:30 03/16/20 06:23 Mometasone 100 Mcg/Formoterol 5 Mcg 120 Puff Inhaler INH 1 puff BID-RT [facility] Administration Potassium Chloride 20 meq 03/14/20 08:00 03/16/20 09:22 Potassium Chloride 20 Meq Tab PO 20 meq BID-WM [facility] Administration Sodium Chloride 10 ml 03/04/20 04:00 03/15/20 05:51 Flush - Normal Saline 10 Ml Syringe IVF 10 ml PRN PRN Administration Saline Flush Throat Lozenges 1 faustino 03/05/20 13:52 03/15/20 08:18 Cepastat Lozenges 1 Faustino PO 1 faustino Q2H PRN Administration Sore Throat Zinc Sulfate 220 mg 03/13/20 09:00 03/16/20 09:22 Zinc Sulfate 220 Mg Cap PO 220 mg DAILY [facility] Administration - Exam Heart: negative: RRR, no murmur, no gallops, no rubs, normal peripheral pulses, irregular, diminshed peripheral pulses, murmur present, II/IV, III/IV Respiratory: negative: CTAB, no wheezes, no rales, no ronchi, normal chest expansion, no tachypnea, normal percussion, rales, rhonchi, tachypneic, wheezes Gastrointestinal: negative: soft, non-tender, non-distended, normal bowel sounds, no palpable masses, no hepatomegaly, no splenomegaly, no bruit, no guarding, no rigidity, tender to palpation, distended, diminished bowl sounds, voluntary guarding Extremities: 1+ LE edema Hosp A/P (1) CAD (coronary artery disease) Code(s): I25.10 - ATHSCL HEART DISEASE OF [place] CORONARY ARTERY W/O ANG PCTRS Status: Chronic (2) Hypertension Code(s): I10 - ESSENTIAL (PRIMARY) HYPERTENSION Status: Chronic (3) Acute respiratory failure with hypoxia Code(s): J96.01 - ACUTE RESPIRATORY FAILURE WITH HYPOXIA Status: Acute (4) COVID-19 Code(s): U07.1 - COVID-19 Status: Acute - Plan Patient currently on 6 L desats on minimal movement. He does not appear tachypneic on physical examination. Patient currently on Lasix. Will get a chest x-ray in a.m. Inflammatory markers continue to improve. We will continue current treatment however will check labs in the morning. Patient currently on DVT prophylaxis. We will add a steroid inhaler. 03/15 patient became very hypoxic on minimal movement was started on high flow. Will continue current treatment very slow recovery. Patient on DVT prophylaxis and steroids.
--- NOTE | 2020-03-16 15:41 | PDOC.HOSPP ---
- Subjective Encounter Date: 03/16/20 Encounter Time: 11:15 Subjective: Patient up in bed complains of mild shortness of breath. Nursing staff stated that on minimal movement he dropped his pressure and became very hypoxic on high flow - Objective Vital Signs & Weight: Vital Signs (12 hours) Temp Pulse Pulse Pulse Pulse Resp BP 03/16/20 13:00 98.7 F 81 18 03/16/20 10:19 75 78 73 88/49 L 03/16/20 09:26 97.6 F 71 20 03/16/20 08:00 97.6 F 71 20 03/16/20 03:50 98.2 F 70 16 BP BP BP BP Pulse Ox Pulse Ox Pulse Ox 03/16/20 13:00 95/51 L 99 03/16/20 10:19 97/52 L 96/55 L 81 L 93 L 03/16/20 09:26 122/60 99 03/16/20 08:00 122/60 99 03/16/20 03:50 121/60 100 Pulse Ox 03/16/20 13:00 03/16/20 10:19 93 L 03/16/20 09:26 03/16/20 08:00 03/16/20 03:50 Weight Admit Weight 157 lb 1.6 oz Weight 149 lb I&O: 03/15/20 03/16/20 03/17/20 06:59 06:59 06:59 Intake Total 1040 1380 600 Output Total 1450 1900 Balance -410 -520 600 Result Diagrams: 03/16/20 04:57 03/15/20 04:59 Additional Labs: Accuchecks 03/16/20 03/16/20 03/15/20 11:40 06:19 19:50 POC Glucose 170 H 129 H 241 H 03/15/20 16:20 POC Glucose 309 H Hospitalist ROS - Review of Systems Cardiovascular: denies: chest pain, palpitations, orthopnea, paroxysmal noc. dyspnea, edema, light headedness, other Gastrointestinal: denies: nausea, vomiting, abdominal pain, diarrhea, constipation, melena, hematochezia, other Genitourinary: denies: dysuria, frequency, incontinence, hematuria, retention, other - Medication Medications: Active Medications Generic Name Dose Route Start Last Admin Trade Name Freq PRN Reason Stop Dose Admin Albuterol Sulfate 2 puff 03/05/20 21:15 03/14/20 21:07 Albuterol 200 Puff (6.7gm Inhaler) INH 2 puff [id number] PRN Administration Wheezing Ascorbic Acid 500 mg 03/13/20 09:00 03/16/20 09:22 Ascorbic Acid 500 Mg Chewable Tablet PO 500 mg DAILY CRUZ[facility]O Administration Aspirin 81 mg 03/05/20 09:00 03/16/20 09:22 Aspirin 81 Mg Enteric Coated Tablet PO 81 mg DAILY CR[facility] Administration Atorvastatin Calcium 10 mg 03/05/20 21:00 03/15/20 19:44 Atorvastatin Calcium 10 Mg Tab PO 10 mg HS CRU[facility]O Administration Benzonatate 100 mg 03/05/20 21:11 03/06/20 21:02 Benzonatate 100 Mg Cap PO 100 mg TIDPRN PRN Administration Cough Carvedilol 12.5 mg 03/13/20 21:00 03/16/20 09:22 Carvedilol 6.25 Mg Tab PO 12.5 mg BID CRUZ[facility]O Administration Cholecalciferol 400 units 03/14/20 09:00 03/16/20 09:22 Cholecalciferol (Vitamin D3) 400 Units Tab PO 400 units DAILY CR[facility] Administration Enoxaparin Sodium 70 mg 03/11/20 21:00 03/16/20 09:21 Enoxaparin Sodium 80 Mg/0.8 Ml Syringe SC 70 mg 0900,2100 [facility] Administration Famotidine 20 mg 03/07/20 21:00 03/16/20 09:22 Famotidine 20 Mg Tab PO 20 mg Q12HR [facility] Administration Furosemide 20 mg 03/14/20 06:00 03/16/20 06:23 Furosemide 20 Mg/2 Ml Vial SLOW IVP 20 mg 0600,1400 CR[facility] Administration Guaifenesin 200 mg 03/12/20 11:30 03/13/20 21:05 Guaifenesin 200 Mg Tab PO 200 mg Q4H PRN Administration Cough Insulin Glargine 10 units/ 0.1 mls @ 0 mls/hr 03/14/20 21:00 03/15/20 19:43 Miscellaneous Medication SC 0.1 mls HS CRUZ[facility]O Administration Insulin Glargine 5 units/ 0.05 mls @ 0 mls/hr 03/14/20 09:00 03/16/20 09:21 Miscellaneous Medication SC 0.05 mls QAM CR[facility] Administration Insulin Human Lispro 0 units 03/07/20 23:11 03/15/20 21:13 Humalog 300 Units/3 Ml Vial SC 2 unit .BEDTIME SLIDING SC PRN Administration Bedtime Correctional Scale Insulin Human Lispro 0 units 03/10/20 17:14 03/15/20 16:33 Humalog 300 Units/3 Ml Vial SC 8 unit .MODERATE SLIDING SC PRN Administration Moderate Correctional Scale Losartan Potassium 25 mg 03/05/20 09:00 03/16/20 09:22 Losartan 25 Mg Tab PO 25 mg DAILY CRUZITO Administration Metformin HCl 500 mg 03/07/20 17:00 03/16/20 09:22 Metformin 500 Mg Tab PO 500 mg BID-WM [facility] Administration Mometasone Furoate/Formoterol Fumar 1 puff 03/14/20 18:30 03/16/20 06:23 Mometasone 100 Mcg/Formoterol 5 Mcg 120 Puff Inhaler INH 1 puff BID-RT CR[facility]O Administration Potassium Chloride 20 meq 03/14/20 08:00 03/16/20 09:22 Potassium Chloride 20 Meq Tab PO 20 meq BID-WM CR[facility] Administration Sodium Chloride 10 ml 03/04/20 04:00 03/15/20 05:51 Flush - Normal Saline 10 Ml Syringe IVF 10 ml PRN PRN Administration Saline Flush Throat Lozenges 1 faustino 03/05/20 13:52 03/15/20 08:18 Cepastat Lozenges 1 Faustino PO 1 faustino Q2H PRN Administration Sore Throat Zinc Sulfate 220 mg 03/13/20 09:00 03/16/20 09:22 Zinc Sulfate 220 Mg Cap PO 220 mg DAILY CRUZ[facility]O Administration - Exam Heart: negative: RRR, no murmur, no gallops, no rubs, normal peripheral pulses, irregular, diminshed peripheral pulses, murmur present, II/IV, III/IV Respiratory: negative: CTAB, no wheezes, no rales, no ronchi, normal chest expansion, no tachypnea, normal percussion, rales, rhonchi, tachypneic, wheezes Gastrointestinal: negative: soft, non-tender, non-distended, normal bowel sounds, no palpable masses, no hepatomegaly, no splenomegaly, no bruit, no guarding, no rigidity, tender to palpation, distended, diminished bowl sounds, voluntary guarding Extremities: 1+ LE edema Hosp A/P (1) CAD (coronary artery disease) Code(s): I25.10 - ATHSCL HEART DISEASE OF [place] CORONARY ARTERY W/O ANG PCTRS Status: Chronic (2) Hypertension Code(s): I10 - ESSENTIAL (PRIMARY) HYPERTENSION Status: Chronic (3) Acute respiratory failure with hypoxia Code(s): J96.01 - ACUTE RESPIRATORY FAILURE WITH HYPOXIA Status: Acute (4) COVID-19 Code(s): U07.1 - COVID-19 Status: Acute - Plan Patient currently on 6 L desats on minimal movement. He does not appear tachypneic on physical examination. Patient currently on Lasix. Will get a chest x-ray in a.m. Inflammatory markers continue to improve. We will continue current treatment however will check labs in the morning. Patient currently on DVT prophylaxis. We will add a steroid inhaler. 03/15 patient became very hypoxic on minimal movement was started on high flow. Will continue current treatment very slow recovery. Patient on DVT prophylaxis and steroids. 03/16 patient became hypotensive and dropped his sats when got up with physical therapy. Will hold Lasix for now we will give a little bit of normal saline bolus. Patient's overall recovery is very slow is been here for about 13 days and continued to improve minimally. Chest x-ray looks worse. His antibiotics have been discontinued. We will decrease his steroids to 20 mg a day. Patient is on full dose anticoagulation. I have encouraged him to use incentive spirometer.
--- NOTE | 2020-03-16 18:29 | PDOC.CPN ---
- Subjective Date: 03/16/20 Time: 18:24 Interval history: No CP. Exam deferred d/t COVID - Review of Systems General: denies: fever/chills, weight/appetite/sleep changes, night sweats, fatigue Respiratory: reports: shortness of breath Cardiovascular: denies: chest pain, palpitation, edema, paroxysmal nocturnal dyspnea, orthopnea - Objective Allergies/Adverse Reactions: Allergies Allergy/AdvReac Type Severity Reaction Status Date / Time No Known Allergies Allergy Verified 03/13/20 07:29 Visit Medications: Current Medications Acetaminophen (Acetaminophen 325 Mg Tab) 650 mg PO Q4H PRN PRN Reason: Headache/Fever/Mild Pain (1-3) Albuterol Sulfate (Albuterol 200 Puff (6.7gm Inhaler)) 2 puff INH [id number] PRN PRN Reason: Wheezing Last Admin: 03/14/20 21:07 Dose: 2 puff Documented by: Ascorbic Acid (Ascorbic Acid 500 Mg Chewable Tablet) 500 mg PO DAILY [facility] Last Admin: 03/16/20 09:22 Dose: 500 mg Documented by: Aspirin (Aspirin 81 Mg Enteric Coated Tablet) 81 mg PO DAILY [facility] Last Admin: 03/16/20 09:22 Dose: 81 mg Documented by: Atorvastatin Calcium (Atorvastatin Calcium 10 Mg Tab) 10 mg PO HS [facility] Last Admin: 03/15/20 19:44 Dose: 10 mg Documented by: Benzonatate (Benzonatate 100 Mg Cap) 100 mg PO TIDPRN PRN PRN Reason: Cough Last Admin: 03/06/20 21:02 Dose: 100 mg Documented by: Carvedilol (Carvedilol 6.25 Mg Tab) 12.5 mg PO BID [facility] Last Admin: 03/16/20 09:22 Dose: 12.5 mg Documented by: Cholecalciferol (Cholecalciferol (Vitamin D3) 400 Units Tab) 400 units PO DAILY [facility] Last Admin: 03/16/20 09:22 Dose: 400 units Documented by: Dextrose/Water (Dextrose 50% Abboject 50 Ml Syringe) 25 gm SLOW IVP PRN PRN PRN Reason: Hypoglycemia Enoxaparin Sodium (Enoxaparin Sodium 80 Mg/0.8 Ml Syringe) 70 mg SC 0900,2100 [facility] Last Admin: 03/16/20 09:21 Dose: 70 mg Documented by: Famotidine (Famotidine 20 Mg Tab) 20 mg PO Q12HR [facility] Last Admin: 03/16/20 09:22 Dose: 20 mg Documented by: Furosemide (Furosemide 20 Mg/2 Ml Vial) 20 mg SLOW IVP 0600,1400 [facility] Last Admin: 03/16/20 06:23 Dose: 20 mg Documented by: Glucagon (Glucagon 1 Mg/Ml Vial) 1 mg IM PRN PRN PRN Reason: Hypoglycemia Guaifenesin (Guaifenesin 200 Mg Tab) 200 mg PO Q4H PRN PRN Reason: Cough Last Admin: 03/13/20 21:05 Dose: 200 mg Documented by: Dextrose/Water (D5w) 1,000 mls @ 0 mls/hr IV .Q0M PRN PRN Reason: Hypoglycemia Insulin Glargine 10 units/ (Miscellaneous Medication) 0.1 mls @ 0 mls/hr SC HS [facility] Last Admin: 03/15/20 19:43 Dose: 0.1 mls Documented by: Insulin Glargine 5 units/ (Miscellaneous Medication) 0.05 mls @ 0 mls/hr SC QAM [facility] Last Admin: 03/16/20 09:21 Dose: 0.05 mls Documented by: Insulin Human Lispro (Humalog 300 Units/3 Ml Vial) 0 units SC .BEDTIME SLIDING SC PRN PRN Reason: Bedtime Correctional Scale Last Admin: 03/15/20 21:13 Dose: 2 unit Documented by: Insulin Human Lispro (Humalog 300 Units/3 Ml Vial) 0 units SC .MODERATE SLIDING SC PRN PRN Reason: Moderate Correctional Scale Last Admin: 03/15/20 16:33 Dose: 8 unit Documented by: Losartan Potassium (Losartan 25 Mg Tab) 25 mg PO DAILY [facility] Last Admin: 03/16/20 09:22 Dose: 25 mg Documented by: Metformin HCl (Metformin 500 Mg Tab) 500 mg PO BID-[facility] Last Admin: 03/16/20 16:28 Dose: 500 mg Documented by: Mometasone Furoate/Formoterol Fumar (Mometasone 100 Mcg/Formoterol 5 Mcg 120 Puff Inhaler) 1 puff INH BID-RT [facility] Last Admin: 03/16/20 06:23 Dose: 1 puff Documented by: Potassium Chloride (Potassium Chloride 20 Meq Tab) 20 meq PO BID-WM [facility] Last Admin: 03/16/20 16:28 Dose: 20 meq Documented by: Prednisone (Prednisone 20 Mg Tab) 20 mg PO QAM-WM [facility] Sodium Chloride (Flush - Normal Saline 10 Ml Syringe) 10 ml IVF PRN PRN PRN Reason: Saline Flush Last Admin: 03/15/20 05:51 Dose: 10 ml Documented by: Throat Lozenges (Cepastat Lozenges 1 Faustino) 1 faustino PO Q2H PRN PRN Reason: Sore Throat Last Admin: 03/15/20 08:18 Dose: 1 fautsino Documented by: Zinc Sulfate (Zinc Sulfate 220 Mg Cap) 220 mg PO DAILY [facility] Last Admin: 03/16/20 09:22 Dose: 220 mg Documented by: Vital Signs & Weight: Vital Signs Temp Pulse Pulse Pulse Pulse Resp BP 03/16/20 16:00 98.6 F 82 20 03/16/20 15:00 98.6 F 82 20 03/16/20 13:00 98.7 F 81 18 03/16/20 10:19 75 78 73 88/49 L 03/16/20 09:26 97.6 F 71 20 03/16/20 08:00 97.6 F 71 20 BP BP BP BP Pulse Ox Pulse Ox Pulse Ox 03/16/20 16:00 116/56 L 100 03/16/20 15:00 116/56 L 100 03/16/20 13:00 95/51 L 99 03/16/20 10:19 97/52 L 96/55 L 81 L 93 L 03/16/20 09:26 122/60 99 03/16/20 08:00 122/60 99 Pulse Ox 03/16/20 16:00 03/16/20 15:00 03/16/20 13:00 03/16/20 10:19 93 L 03/16/20 09:26 03/16/20 08:00 Admit Weight 157 lb 1.6 oz Weight 149 lb - Quality Measures CV meds: Beta Gray: Yes, GUY/ARB: Yes, Statin: Yes, ASA: Yes - Physical Exam General: other (PE deferred d/t COVID) - Labs Result Diagrams: 03/16/20 04:57 03/15/20 04:59 - EKG Interpretation EKG Method: Telemetry EKG: sinus rhythm - Assessment/Plan Assessment/Plan: 1. COVID pneumonia 2. S/P CABG 3. Ischemic cardiomyopathy with EF 20-25% 4. S/P single chamber AICD 5. NSVT: patient had 4 beats of NSVT yeaterday morning, no episodes of NSVT today. 6. Hypotension, acute, Primary care held dose of Lasix today, can continue to hold d/t hypotension. Will decrease Coreg to 6.25 mg PO BID.
[2020-03-16] MEDS: Insulin Glargine 10 UNITS in Pre-Filled Syringe 1 EACH SC SCH (20:41)
[2020-03-16] MEDS: Atorvastatin Calcium 10 MG TAB PO SCH (20:42)
[2020-03-17 05:25] LABS: Hemoglobin 9.1 g/dL (14.0-18.0); Platelet Count 352 thou/uL (130-400)
[2020-03-17] MEDS: Mometasone 100 MCG/Formoterol 5 MCG 120 PUFF INHALER INH SCH ×2 (05:41→18:10)
[2020-03-17 05:53] LABS: ALT (SGPT) 15 U/L (8-55); AST (SGOT) 17 U/L (5-34); Albumin 2.9 g/dL (3.4-4.8); Alkaline Phosphatase 61 U/L (40-110); Bilirubin, Direct 0.2 mg/dL (0.1-0.3); Bilirubin, Total 0.4 mg/dL (0.2-1.2); Protein, Total 5.2 g/dL (5.8-8.1)
[2020-03-17] MEDS: Insulin Glargine 5 UNITS in Pre-Filled Syringe 1 EACH SC SCH (09:28)
[2020-03-17] MEDS: Carvedilol 6.25 MG TAB PO SCH ×2 (09:30→20:44)
[2020-03-17] MEDS: Aspirin 81 mg Enteric Coated Tablet PO SCH (09:30)
[2020-03-17] MEDS: predniSONE 20 MG TAB PO SCH (09:30)
[2020-03-17] MEDS: Ascorbic Acid 500 mg Chewable Tablet PO SCH (09:30)
[2020-03-17] MEDS: Cholecalciferol (Vitamin D3) 400 UNITS TAB PO SCH (09:30)
[2020-03-17] MEDS: Potassium Chloride 20 MEQ TAB PO SCH ×2 (09:30→18:09)
[2020-03-17] MEDS: Famotidine 20 MG TAB PO SCH ×2 (09:30→20:44)
[2020-03-17] MEDS: Zinc Sulfate 220 MG CAP PO SCH (09:30)
[2020-03-17] MEDS: metFORMIN 500 MG TAB PO SCH ×2 (09:30→18:09)
[2020-03-17] MEDS: Losartan 25 MG TAB PO SCH (09:31)
[2020-03-17] MEDS: Enoxaparin Sodium 80 MG/0.8 ML SYRINGE SC SCH ×2 (09:31→20:43)
--- NOTE | 2020-03-17 16:47 | PDOC.CPN ---
- Subjective Date: 03/17/20 Time: 16:45 Interval history: No new events overnight. - Review of Systems General: denies: fever/chills, weight/appetite/sleep changes, night sweats, fatigue Respiratory: denies: cough, congestion, shortness of breath, exercise intolerance Cardiovascular: denies: chest pain, palpitation, edema, paroxysmal nocturnal dyspnea, orthopnea Gastrointestinal: denies: nausea, vomiting, diarrhea, constipation, abd pain, GI bleeding Musculoskeletal: denies: pain, tenderness, stiffness, swelling, arthritis/arthralgias Neurological: denies: numbness, syncope, seizure, weakness - Objective Allergies/Adverse Reactions: Allergies Allergy/AdvReac Type Severity Reaction Status Date / Time No Known Allergies Allergy Verified 03/13/20 07:29 Visit Medications: Current Medications Acetaminophen (Acetaminophen 325 Mg Tab) 650 mg PO Q4H PRN PRN Reason: Headache/Fever/Mild Pain (1-3) Albuterol Sulfate (Albuterol 200 Puff (6.7gm Inhaler)) 2 puff INH [id number] PRN PRN Reason: Wheezing Last Admin: 03/14/20 21:07 Dose: 2 puff Documented by: Ascorbic Acid (Ascorbic Acid 500 Mg Chewable Tablet) 500 mg PO DAILY [facility] Last Admin: 03/17/20 09:30 Dose: 500 mg Documented by: Aspirin (Aspirin 81 Mg Enteric Coated Tablet) 81 mg PO DAILY [facility] Last Admin: 03/17/20 09:30 Dose: 81 mg Documented by: Atorvastatin Calcium (Atorvastatin Calcium 10 Mg Tab) 10 mg PO HS [facility] Last Admin: 03/16/20 20:42 Dose: 10 mg Documented by: Benzonatate (Benzonatate 100 Mg Cap) 100 mg PO TIDPRN PRN PRN Reason: Cough Last Admin: 03/06/20 21:02 Dose: 100 mg Documented by: Carvedilol (Carvedilol 6.25 Mg Tab) 6.25 mg PO BID [facility] Last Admin: 03/17/20 09:30 Dose: 6.25 mg Documented by: Cholecalciferol (Cholecalciferol (Vitamin D3) 400 Units Tab) 400 units PO DAILY [facility] Last Admin: 03/17/20 09:30 Dose: 400 units Documented by: Dextrose/Water (Dextrose 50% Abboject 50 Ml Syringe) 25 gm SLOW IVP PRN PRN PRN Reason: Hypoglycemia Enoxaparin Sodium (Enoxaparin Sodium 80 Mg/0.8 Ml Syringe) 70 mg SC 0900,2100 [facility] Last Admin: 03/17/20 09:31 Dose: 70 mg Documented by: Famotidine (Famotidine 20 Mg Tab) 20 mg PO Q12HR [facility] Last Admin: 03/17/20 09:30 Dose: 20 mg Documented by: Furosemide (Furosemide 20 Mg/2 Ml Vial) 20 mg SLOW IVP 0600,1400 [facility] Last Admin: 03/16/20 06:23 Dose: 20 mg Documented by: Glucagon (Glucagon 1 Mg/Ml Vial) 1 mg IM PRN PRN PRN Reason: Hypoglycemia Guaifenesin (Guaifenesin 200 Mg Tab) 200 mg PO Q4H PRN PRN Reason: Cough Last Admin: 03/13/20 21:05 Dose: 200 mg Documented by: Dextrose/Water (D5w) 1,000 mls @ 0 mls/hr IV .Q0M PRN PRN Reason: Hypoglycemia Insulin Glargine 10 units/ (Miscellaneous Medication) 0.1 mls @ 0 mls/hr SC [facility] Last Admin: 03/16/20 20:41 Dose: 0.1 mls Documented by: Insulin Glargine 5 units/ (Miscellaneous Medication) 0.05 mls @ 0 mls/hr SC QAM [facility] Last Admin: 03/17/20 09:28 Dose: 0.05 mls Documented by: Insulin Human Lispro (Humalog 300 Units/3 Ml Vial) 0 units SC .BEDTIME SLIDING SC PRN PRN Reason: Bedtime Correctional Scale Last Admin: 03/15/20 21:13 Dose: 2 unit Documented by: Insulin Human Lispro (Humalog 300 Units/3 Ml Vial) 0 units SC .MODERATE SLIDING SC PRN PRN Reason: Moderate Correctional Scale Last Admin: 03/15/20 16:33 Dose: 8 unit Documented by: Losartan Potassium (Losartan 25 Mg Tab) 25 mg PO DAILY [facility] Last Admin: 03/17/20 09:31 Dose: 25 mg Documented by: Metformin HCl (Metformin 500 Mg Tab) 500 mg PO BID-[facility] Last Admin: 03/17/20 09:30 Dose: 500 mg Documented by: Mometasone Furoate/Formoterol Fumar (Mometasone 100 Mcg/Formoterol 5 Mcg 120 Puff Inhaler) 1 puff INH BID-RT [facility] Last Admin: 03/17/20 05:41 Dose: 1 puff Documented by: Potassium Chloride (Potassium Chloride 20 Meq Tab) 20 meq PO BID-WM [facility] Last Admin: 03/17/20 09:30 Dose: 20 meq Documented by: Prednisone (Prednisone 20 Mg Tab) 20 mg PO QAM-WM [facility] Last Admin: 03/17/20 09:30 Dose: 20 mg Documented by: Sodium Chloride (Flush - Normal Saline 10 Ml Syringe) 10 ml IVF PRN PRN PRN Reason: Saline Flush Last Admin: 03/17/20 09:32 Dose: 10 ml Documented by: Throat Lozenges (Cepastat Lozenges 1 Faustino) 1 faustino PO Q2H PRN PRN Reason: Sore Throat Last Admin: 03/15/20 08:18 Dose: 1 faustino Documented by: Zinc Sulfate (Zinc Sulfate 220 Mg Cap) 220 mg PO DAILY [facility] Last Admin: 03/17/20 09:30 Dose: 220 mg Documented by: Vital Signs & Weight: Vital Signs Temp Pulse Resp BP Pulse Ox 03/17/20 13:07 97.7 F 77 20 101/56 L 100 03/17/20 09:32 98.8 F 75 20 106/55 L 100 Admit Weight 157 lb 1.6 oz Weight 149 lb - Quality Measures CV meds: Beta Gray: Yes, GUY/ARB: Yes, Statin: Yes, ASA: Yes - Physical Exam HEENT: normocephaly Neck: no JVD/HJR Cardiac: regular rate and rhythm Lungs: normal breath sounds - Labs Result Diagrams: 03/17/20 05:03 03/15/20 04:59 - EKG Interpretation EKG: sinus rhythm - Assessment/Plan Assessment/Plan: 1. COVID pneumonia 2. S/P CABG 3. Ischemic cardiomyopathy with EF 20-25% 4. S/P single chamber AICD 5. NSVT: patient had 4 beats of NSVT Wednesday morning, no episodes of NSVT since. 6. Hypotension decreased Coreg to 6.25 mg PO BID. BP on the low side but stable.
--- NOTE | 2020-03-17 17:00 | PDOC.HOSPP ---
- Subjective Encounter Date: 03/17/20 Encounter Time: 10:30 Subjective: Patient up in bed denies any complaints - Objective Vital Signs & Weight: Vital Signs (12 hours) Temp Pulse Resp BP Pulse Ox 03/17/20 13:07 97.7 F 77 20 101/56 L 100 03/17/20 09:32 98.8 F 75 20 106/55 L 100 Weight Admit Weight 157 lb 1.6 oz Weight 149 lb I&O: 03/16/20 03/17/20 03/18/20 06:59 06:59 06:59 Intake Total 1380 1300 1040 Output Total 1900 400 200 Balance -520 900 840 Result Diagrams: 03/17/20 05:03 03/15/20 04:59 Additional Labs: Accuchecks 03/17/20 03/17/20 03/17/20 16:50 09:41 05:44 POC Glucose 181 H 145 H 68 L 03/16/20 03/16/20 20:50 17:18 POC Glucose 126 H 190 H Hospitalist ROS - Review of Systems Respiratory: reports: shortness of breath Gastrointestinal: denies: nausea, vomiting, abdominal pain, diarrhea, constipation, melena, hematochezia, other Genitourinary: denies: dysuria, frequency, incontinence, hematuria, retention, other - Medication Medications: Active Medications Generic Name Dose Route Start Last Admin Trade Name Freq PRN Reason Stop Dose Admin Albuterol Sulfate 2 puff 03/05/20 21:15 03/14/20 21:07 Albuterol 200 Puff (6.7gm Inhaler) INH 2 puff [id number] PRN Administration Wheezing Ascorbic Acid 500 mg 03/13/20 09:00 03/17/20 09:30 Ascorbic Acid 500 Mg Chewable Tablet PO 500 mg DAILY [facility] Administration Aspirin 81 mg 03/05/20 09:00 03/17/20 09:30 Aspirin 81 Mg Enteric Coated Tablet PO 81 mg DAILY [facility] Administration Atorvastatin Calcium 10 mg 03/05/20 21:00 03/16/20 20:42 Atorvastatin Calcium 10 Mg Tab PO 10 mg HS [facility] Administration Benzonatate 100 mg 03/05/20 21:11 03/06/20 21:02 Benzonatate 100 Mg Cap PO 100 mg TIDPRN PRN Administration Cough Carvedilol 6.25 mg 03/16/20 21:00 03/17/20 09:30 Carvedilol 6.25 Mg Tab PO 6.25 mg BID [facility] Administration Cholecalciferol 400 units 03/14/20 09:00 03/17/20 09:30 Cholecalciferol (Vitamin D3) 400 Units Tab PO 400 units DAILY [facility] Administration Enoxaparin Sodium 70 mg 03/11/20 21:00 03/17/20 09:31 Enoxaparin Sodium 80 Mg/0.8 Ml Syringe SC 70 mg 0900,2100 [facility] Administration Famotidine 20 mg 03/07/20 21:00 03/17/20 09:30 Famotidine 20 Mg Tab PO 20 mg Q12HR [facility] Administration Furosemide 20 mg 03/14/20 06:00 03/16/20 06:23 Furosemide 20 Mg/2 Ml Vial SLOW IVP 20 mg 0600,1400 [facility] Administration Guaifenesin 200 mg 03/12/20 11:30 03/13/20 21:05 Guaifenesin 200 Mg Tab PO 200 mg Q4H PRN Administration Cough Insulin Glargine 10 units/ 0.1 mls @ 0 mls/hr 03/14/20 21:00 03/16/20 20:41 Miscellaneous Medication SC 0.1 mls HS [facility] Administration Insulin Glargine 5 units/ 0.05 mls @ 0 mls/hr 03/14/20 09:00 03/17/20 09:28 Miscellaneous Medication SC 0.05 mls QAM [facility] Administration Insulin Human Lispro 0 units 03/07/20 23:11 03/15/20 21:13 Humalog 300 Units/3 Ml Vial SC 2 unit .BEDTIME SLIDING SC PRN Administration Bedtime Correctional Scale Insulin Human Lispro 0 units 03/10/20 17:14 03/15/20 16:33 Humalog 300 Units/3 Ml Vial SC 8 unit .MODERATE SLIDING SC PRN Administration Moderate Correctional Scale Losartan Potassium 25 mg 03/05/20 09:00 03/17/20 09:31 Losartan 25 Mg Tab PO 25 mg DAILY [facility] Administration Metformin HCl 500 mg 03/07/20 17:00 03/17/20 09:30 Metformin 500 Mg Tab PO 500 mg BID-WM [facility] Administration Mometasone Furoate/Formoterol Fumar 1 puff 03/14/20 18:30 03/17/20 05:41 Mometasone 100 Mcg/Formoterol 5 Mcg 120 Puff Inhaler INH 1 puff BID-RT [facility] Administration Potassium Chloride 20 meq 03/14/20 08:00 03/17/20 09:30 Potassium Chloride 20 Meq Tab PO 20 meq BID-WM [facility] Administration Prednisone 20 mg 03/17/20 08:00 03/17/20 09:30 Prednisone 20 Mg Tab PO 20 mg QAM-WM [facility] Administration Sodium Chloride 10 ml 03/04/20 04:00 03/17/20 09:32 Flush - Normal Saline 10 Ml Syringe IVF 10 ml PRN PRN Administration Saline Flush Throat Lozenges 1 faustino 03/05/20 13:52 03/15/20 08:18 Cepastat Lozenges 1 Faustino PO 1 faustino Q2H PRN Administration Sore Throat Zinc Sulfate 220 mg 03/13/20 09:00 03/17/20 09:30 Zinc Sulfate 220 Mg Cap PO 220 mg DAILY [facility] Administration - Exam Neck: negative: supple, symmetric, no JVD, no thyromegaly, no lymphadenopathy, no carotid bruit, JVD Heart: negative: RRR, no murmur, no gallops, no rubs, normal peripheral pulses, irregular, diminshed peripheral pulses, murmur present, II/IV, III/IV Respiratory: negative: CTAB, no wheezes, no rales, no ronchi, normal chest expansion, no tachypnea, normal percussion, rales, rhonchi, tachypneic, wheezes Hosp A/P (1) CAD (coronary artery disease) Code(s): I25.10 - ATHSCL HEART DISEASE OF [place] CORONARY ARTERY W/O ANG PCTRS Status: Chronic (2) Hypertension Code(s): I10 - ESSENTIAL (PRIMARY) HYPERTENSION Status: Chronic (3) Acute respiratory failure with hypoxia Code(s): J96.01 - ACUTE RESPIRATORY FAILURE WITH HYPOXIA Status: Acute (4) COVID-19 Code(s): U07.1 - COVID-19 Status: Acute - Plan Patient currently on 6 L desats on minimal movement. He does not appear tachypneic on physical examination. Patient currently on Lasix. Will get a chest x-ray in a.m. Inflammatory markers continue to improve. We will continue current treatment however will check labs in the morning. Patient currently on DVT prophylaxis. We will add a steroid inhaler. 03/15 patient became very hypoxic on minimal movement was started on high flow. Will continue current treatment very slow recovery. Patient on DVT prophylaxis and steroids. 03/16 patient became hypotensive and dropped his sats when got up with physical therapy. Will hold Lasix for now we will give a little bit of normal saline bolus. Patient's overall recovery is very slow is been here for about 13 days and continued to improve minimally. Chest x-ray looks worse. His antibiotics have been discontinued. We will decrease his steroids to 20 mg a day. Patient is on full dose anticoagulation. I have encouraged him to use incentive spirometer. 03/17 we will continue to hold diuretics for now. Patient currently continues to be on high flow. Continue steroids hopefully will taper it off soon. Patient on DVT prophylaxis.
[2020-03-17] MEDS: Atorvastatin Calcium 10 MG TAB PO SCH (20:44)
[2020-03-17] MEDS: Insulin Glargine 10 UNITS in Pre-Filled Syringe 1 EACH SC SCH (20:44)
[2020-03-17] MEDS: HumaLOG 300 UNITS/3 ML VIAL SC PRN (21:27)
[2020-03-18 05:53] LABS: #Eosinphils 0.1 thou/uL (0.0-0.7); #Lymphocytes 0.9 thou/uL (1.20-3.40); #Monocytes 0.9 thou/uL (0.11-0.59); #Neutrophils 6.3 thou/uL (1.40-6.50); %Eosinophils 0.8 % (0.0-10.0); %Lymphocytes 11.5 % (21.0-51.0); %Neutrophils 76.6 % (42.0-75.0); Hemoglobin 8.9 g/dL (14.0-18.0); Mean Corpuscular HGB CONC 31.8 g/dL (32.0-36.0); Mean Corpuscular Hemoglobin 27.2 pg (27.0-31.0); Mean Corpuscular Volume 85.3 fL (78.0-98.0); Mean Platelet Volume 8.8 fL (7.4-10.4); Platelet Count 314 thou/uL (130-400); RBC Distribution Width 12.7 % (11.5-14.5); Red Blood Cell (RBC) Count 3.27 mill/uL (4.70-6.10); White Blood Cell (WBC) Count 8.2 thou/uL (4.8-10.8)
[2020-03-18 06:13] LABS: ALT (SGPT) 14 U/L (8-55); AST (SGOT) 12 U/L (5-34); Alkaline Phosphatase 87 U/L (40-110); Anion Gap 14 mmol/L (10-20); BUN (Urea Nitrogen) 31 mg/dL (8.4-25.7); Bilirubin, Direct 0.1 mg/dL (0.1-0.3); Bilirubin, Total 0.3 mg/dL (0.2-1.2); Calc. Creatinine Clearance 71 mL/min (70-130); Calcium 8.7 mg/dL (7.8-10.44); Carbon Dioxide 25 mmol/L (23-31); Chloride 101 mmol/L (98-107); Globulin 2.4 g/dL (2.4-3.5); Glucose 115 mg/dL (83-110); Potassium 4.7 mmol/L (3.5-5.1); Protein, Total 5.4 g/dL (5.8-8.1); Sodium 135 mmol/L (136-145)
[2020-03-18] MEDS: Mometasone 100 MCG/Formoterol 5 MCG 120 PUFF INHALER INH SCH ×3 (06:21→18:27)
[2020-03-18] MEDS: Zinc Sulfate 220 MG CAP PO SCH (08:20)
[2020-03-18] MEDS: Ascorbic Acid 500 mg Chewable Tablet PO SCH (08:20)
[2020-03-18] MEDS: Losartan 25 MG TAB PO SCH (08:20)
[2020-03-18] MEDS: Enoxaparin Sodium 80 MG/0.8 ML SYRINGE SC SCH ×2 (08:20→20:14)
[2020-03-18] MEDS: Potassium Chloride 20 MEQ TAB PO SCH ×2 (08:20→16:33)
[2020-03-18] MEDS: Aspirin 81 mg Enteric Coated Tablet PO SCH (08:21)
[2020-03-18] MEDS: metFORMIN 500 MG TAB PO SCH ×2 (08:21→16:33)
[2020-03-18] MEDS: Famotidine 20 MG TAB PO SCH ×2 (08:21→20:13)
[2020-03-18] MEDS: Cholecalciferol (Vitamin D3) 400 UNITS TAB PO SCH (08:21)
[2020-03-18] MEDS: predniSONE 20 MG TAB PO SCH (08:21)
[2020-03-18] MEDS: Carvedilol 6.25 MG TAB PO SCH ×2 (08:21→20:14)
[2020-03-18] MEDS: Insulin Glargine 5 UNITS in Pre-Filled Syringe 1 EACH SC SCH (10:18)
[2020-03-18 11:06] VITALS: BMI 23.3
[2020-03-18] MEDS: HumaLOG 300 UNITS/3 ML VIAL SC PRN (16:39)
[2020-03-18] MEDS: Atorvastatin Calcium 10 MG TAB PO SCH (20:14)
[2020-03-18] MEDS: Insulin Glargine 10 UNITS in Pre-Filled Syringe 1 EACH SC SCH (20:15)
[2020-03-19] MEDS: Mometasone 100 MCG/Formoterol 5 MCG 120 PUFF INHALER INH SCH ×2 (05:39→17:45)
[2020-03-19 05:46] LABS: ALT (SGPT) 12 U/L (8-55); AST (SGOT) 12 U/L (5-34); Albumin 2.8 g/dL (3.4-4.8); Alkaline Phosphatase 64 U/L (40-110); Bilirubin, Direct 0.2 mg/dL (0.1-0.3); Bilirubin, Total 0.3 mg/dL (0.2-1.2); Protein, Total 5.2 g/dL (5.8-8.1)
[2020-03-19] MEDS: Famotidine 20 MG TAB PO SCH ×2 (08:28→20:38)
[2020-03-19] MEDS: Cholecalciferol (Vitamin D3) 400 UNITS TAB PO SCH (08:28)
[2020-03-19] MEDS: Insulin Glargine 5 UNITS in Pre-Filled Syringe 1 EACH SC SCH (08:28)
[2020-03-19] MEDS: Ascorbic Acid 500 mg Chewable Tablet PO SCH (08:28)
[2020-03-19] MEDS: Losartan 25 MG TAB PO SCH (08:28)
[2020-03-19] MEDS: Aspirin 81 mg Enteric Coated Tablet PO SCH (08:28)
[2020-03-19] MEDS: Potassium Chloride 20 MEQ TAB PO SCH ×2 (08:29→17:45)
[2020-03-19] MEDS: metFORMIN 500 MG TAB PO SCH ×2 (08:29→17:45)
[2020-03-19] MEDS: Zinc Sulfate 220 MG CAP PO SCH (08:29)
[2020-03-19] MEDS: Carvedilol 6.25 MG TAB PO SCH (08:29)
[2020-03-19] MEDS: predniSONE 20 MG TAB PO SCH (08:29)
[2020-03-19] MEDS: Enoxaparin Sodium 80 MG/0.8 ML SYRINGE SC SCH ×2 (08:32→20:37)
--- NOTE | 2020-03-19 14:38 | PDOC.HOSPP ---
- Subjective Encounter Date: 03/19/20 Encounter Time: 11:30 Subjective: Patient up in no complaints. - Objective Vital Signs & Weight: Vital Signs (12 hours) Temp Pulse Resp BP Pulse Ox 03/19/20 12:50 98.5 F 78 18 103/54 L 97 03/19/20 08:40 98.7 F 74 20 119/60 97 03/19/20 03:32 99.2 F 79 15 131/59 L 99 Weight Admit Weight 157 lb 1.6 oz Weight 143 lb 9.6 oz I&O: 03/18/20 03/19/20 03/20/20 06:59 06:59 06:59 Intake Total 2000 1350 Output Total 700 1350 Balance 1300 0 Result Diagrams: 03/18/20 05:14 03/18/20 05:14 Additional Labs: Accuchecks 03/19/20 03/19/20 03/19/20 10:26 06:18 05:27 POC Glucose 109 H 115 H 68 L 03/18/20 03/18/20 20:18 16:38 POC Glucose 190 H 218 H Hospitalist ROS - Review of Systems Cardiovascular: denies: chest pain, palpitations, orthopnea, paroxysmal noc. dyspnea, edema, light headedness, other Gastrointestinal: denies: nausea, vomiting, abdominal pain, diarrhea, constipation, melena, hematochezia, other Genitourinary: denies: dysuria, frequency, incontinence, hematuria, retention, other - Medication Medications: Active Medications Generic Name Dose Route Start Last Admin Trade Name Freq PRN Reason Stop Dose Admin Albuterol Sulfate 2 puff 03/05/20 21:15 03/14/20 21:07 Albuterol 200 Puff (6.7gm Inhaler) INH 2 puff [id number] PRN Administration Wheezing Ascorbic Acid 500 mg 03/13/20 09:00 03/19/20 08:28 Ascorbic Acid 500 Mg Chewable Tablet PO 500 mg DAILY [facility] Administration Aspirin 81 mg 03/05/20 09:00 03/19/20 08:28 Aspirin 81 Mg Enteric Coated Tablet PO 81 mg DAILY [facility] Administration Atorvastatin Calcium 10 mg 03/05/20 21:00 03/18/20 20:14 Atorvastatin Calcium 10 Mg Tab PO 10 mg HS [facility] Administration Benzonatate 100 mg 03/05/20 21:11 03/06/20 21:02 Benzonatate 100 Mg Cap PO 100 mg TIDPRN PRN Administration Cough Carvedilol 6.25 mg 03/16/20 21:00 03/19/20 08:29 Carvedilol 6.25 Mg Tab PO 6.25 mg BID [facility] Administration Cholecalciferol 400 units 03/14/20 09:00 03/19/20 08:28 Cholecalciferol (Vitamin D3) 400 Units Tab PO 400 units DAILY [facility] Administration Enoxaparin Sodium 70 mg 03/11/20 21:00 03/19/20 08:32 Enoxaparin Sodium 80 Mg/0.8 Ml Syringe SC 70 mg 0900,2100 [facility] Administration Famotidine 20 mg 03/07/20 21:00 03/19/20 08:28 Famotidine 20 Mg Tab PO 20 mg Q12HR [facility] Administration Furosemide 20 mg 03/14/20 06:00 03/16/20 06:23 Furosemide 20 Mg/2 Ml Vial SLOW IVP 20 mg 0600,1400 [facility] Administration Guaifenesin 200 mg 03/12/20 11:30 03/13/20 21:05 Guaifenesin 200 Mg Tab PO 200 mg Q4H PRN Administration Cough Insulin Glargine 10 units/ 0.1 mls @ 0 mls/hr 03/14/20 21:00 03/18/20 20:15 Miscellaneous Medication SC 0.1 mls HS [facility] Administration Insulin Glargine 5 units/ 0.05 mls @ 0 mls/hr 03/14/20 09:00 03/19/20 08:28 Miscellaneous Medication SC 0.05 mls QAM [facility] Administration Insulin Human Lispro 0 units 03/07/20 23:11 03/17/20 21:27 Humalog 300 Units/3 Ml Vial SC 2 unit .BEDTIME SLIDING SC PRN Administration Bedtime Correctional Scale Insulin Human Lispro 0 units 03/10/20 17:14 03/18/20 16:39 Humalog 300 Units/3 Ml Vial SC 4 unit .MODERATE SLIDING SC PRN Administration Moderate Correctional Scale Losartan Potassium 25 mg 03/05/20 09:00 03/19/20 08:28 Losartan 25 Mg Tab PO 25 mg DAILY [facility] Administration Metformin HCl 500 mg 03/07/20 17:00 03/19/20 08:29 Metformin 500 Mg Tab PO 500 mg BID-WM [facility] Administration Mometasone Furoate/Formoterol Fumar 0 puff 03/18/20 18:30 03/19/20 05:39 Mometasone 100 Mcg/Formoterol 5 Mcg 120 Puff Inhaler INH 1 puff BID-RT [facility] Administration Potassium Chloride 20 meq 03/14/20 08:00 03/19/20 08:29 Potassium Chloride 20 Meq Tab PO 20 meq BID-WM [facility] Administration Prednisone 20 mg 03/17/20 08:00 03/19/20 08:29 Prednisone 20 Mg Tab PO 20 mg QAM-WM [facility] Administration Sodium Chloride 10 ml 03/04/20 04:00 03/18/20 08:21 Flush - Normal Saline 10 Ml Syringe IVF 10 ml PRN PRN Administration Saline Flush Throat Lozenges 1 faustino 03/05/20 13:52 03/15/20 08:18 Cepastat Lozenges 1 Faustino PO 1 faustino Q2H PRN Administration Sore Throat Zinc Sulfate 220 mg 03/13/20 09:00 03/19/20 08:29 Zinc Sulfate 220 Mg Cap PO 220 mg DAILY [facility] Administration - Exam Heart: negative: RRR, no murmur, no gallops, no rubs, normal peripheral pulses, irregular, diminshed peripheral pulses, murmur present, II/IV, III/IV Respiratory: negative: CTAB, no wheezes, no rales, no ronchi, normal chest expansion, no tachypnea, normal percussion, rales, rhonchi, tachypneic, wheezes Gastrointestinal: negative: soft, non-tender, non-distended, normal bowel s ounds, no palpable masses, no hepatomegaly, no splenomegaly, no bruit, no guarding, no rigidity, tender to palpation, distended, diminished bowl sounds, voluntary guarding Extremities: 1+ LE edema Hosp A/P (1) CAD (coronary artery disease) Code(s): I25.10 - ATHSCL HEART DISEASE OF [place] CORONARY ARTERY W/O ANG PCTRS Status: Chronic (2) Hypertension Code(s): I10 - ESSENTIAL (PRIMARY) HYPERTENSION Status: Chronic (3) Acute respiratory failure with hypoxia Code(s): J96.01 - ACUTE RESPIRATORY FAILURE WITH HYPOXIA Status: Acute (4) COVID-19 Code(s): U07.1 - COVID-19 Status: Acute - Plan Patient currently on 6 L desats on minimal movement. He does not appear tachypneic on physical examination. Patient currently on Lasix. Will get a chest x-ray in a.m. Inflammatory markers continue to improve. We will continue current treatment however will check labs in the morning. Patient currently on DVT prophylaxis. We will add a steroid inhaler. 03/15 patient became very hypoxic on minimal movement was started on high flow. Will continue current treatment very slow recovery. Patient on DVT prophylaxis and steroids. 03/16 patient became hypotensive and dropped his sats when got up with physical therapy. Will hold Lasix for now we will give a little bit of normal saline bolus. Patient's overall recovery is very slow is been here for about 13 days and continued to improve minimally. Chest x-ray looks worse. His antibiotics have been discontinued. We will decrease his steroids to 20 mg a day. Patient is on full dose anticoagulation. I have encouraged him to use incentive spirometer. 03/17 we will continue to hold diuretics for now. Patient currently continues to be on high flow. Continue steroids hopefully will taper it off soon. Patient on DVT prophylaxis. 03/19 patient currently is on high flow we will ask nursing staff to start weaning off. However patient desats on minimal movement. Patient currently on FiO2 of 35%.
[2020-03-19] MEDS ORDERED: predniSONE 20 MG TAB PO SCH (14:45)
[2020-03-19] MEDS: Furosemide 20 MG/2 ML VIAL SLOW IVP SCH (15:16)
[2020-03-19] MEDS: HumaLOG 300 UNITS/3 ML VIAL SC PRN (17:45)
[2020-03-19] MEDS: Atorvastatin Calcium 10 MG TAB PO SCH (20:38)
[2020-03-19] MEDS: Carvedilol 3.125 MG TAB PO SCH (20:38)
[2020-03-19] MEDS: Insulin Glargine 10 UNITS in Pre-Filled Syringe 1 EACH SC SCH (20:39)
[2020-03-20] MEDS: Furosemide 20 MG/2 ML VIAL SLOW IVP SCH ×2 (06:11→15:00)
[2020-03-20] MEDS: Mometasone 100 MCG/Formoterol 5 MCG 120 PUFF INHALER INH SCH ×2 (06:11→17:59)
[2020-03-20 06:25] LABS: ALT (SGPT) 22 U/L (8-55); AST (SGOT) 17 U/L (5-34); Albumin 2.9 g/dL (3.4-4.8); Alkaline Phosphatase 77 U/L (40-110); Anion Gap 14 mmol/L (10-20); BUN (Urea Nitrogen) 30 mg/dL (8.4-25.7); Bilirubin, Direct 0.1 mg/dL (0.1-0.3); Bilirubin, Total 0.2 mg/dL (0.2-1.2); Calc. Creatinine Clearance 76 mL/min (70-130); Calcium 8.9 mg/dL (7.8-10.44); Carbon Dioxide 25 mmol/L (23-31); Chloride 101 mmol/L (98-107); Glucose 149 mg/dL (83-110); Potassium 4.6 mmol/L (3.5-5.1); Protein, Total 5.3 g/dL (5.8-8.1); Sodium 135 mmol/L (136-145)
[2020-03-20] MEDS: Enoxaparin Sodium 80 MG/0.8 ML SYRINGE SC SCH ×2 (09:09→21:00)
[2020-03-20] MEDS: Insulin Glargine 5 UNITS in Pre-Filled Syringe 1 EACH SC SCH (09:10)
[2020-03-20] MEDS: Cholecalciferol (Vitamin D3) 400 UNITS TAB PO SCH (09:10)
[2020-03-20] MEDS: Aspirin 81 mg Enteric Coated Tablet PO SCH (09:11)
[2020-03-20] MEDS: Famotidine 20 MG TAB PO SCH ×2 (09:11→21:00)
[2020-03-20] MEDS: Carvedilol 3.125 MG TAB PO SCH ×2 (09:11→21:00)
[2020-03-20] MEDS: Losartan 25 MG TAB PO SCH (09:11)
[2020-03-20] MEDS: Potassium Chloride 20 MEQ TAB PO SCH ×2 (09:11→17:35)
[2020-03-20] MEDS: Zinc Sulfate 220 MG CAP PO SCH (09:11)
[2020-03-20] MEDS: metFORMIN 500 MG TAB PO SCH ×2 (09:11→17:35)
[2020-03-20] MEDS: Ascorbic Acid 500 mg Chewable Tablet PO SCH (09:11)
[2020-03-20] MEDS: predniSONE 20 MG TAB PO SCH (09:12)
[2020-03-20] MEDS: HumaLOG 300 UNITS/3 ML VIAL SC PRN (11:50)
[2020-03-20] MEDS: Albuterol 200 PUFF (6.7GM INHALER) INH PRN (17:36)
[2020-03-20] MEDS: Atorvastatin Calcium 10 MG TAB PO SCH (21:00)
[2020-03-20] MEDS: Insulin Glargine 10 UNITS in Pre-Filled Syringe 1 EACH SC SCH (21:03)
[2020-03-21 05:13] LABS: ALT (SGPT) 34 U/L (8-55); AST (SGOT) 28 U/L (5-34); Albumin 3.1 g/dL (3.4-4.8); Alkaline Phosphatase 87 U/L (40-110); Bilirubin, Direct 0.1 mg/dL (0.1-0.3); Bilirubin, Total 0.2 mg/dL (0.2-1.2); Protein, Total 5.8 g/dL (5.8-8.1)
[2020-03-21] MEDS: Mometasone 100 MCG/Formoterol 5 MCG 120 PUFF INHALER INH SCH ×2 (05:59→16:40)
[2020-03-21] MEDS: Furosemide 20 MG/2 ML VIAL SLOW IVP SCH ×2 (05:59→14:02)
--- NOTE | 2020-03-21 07:48 | PDOC.HOSPP ---
- Subjective Encounter Date: 03/20/20 Encounter Time: 11:45 Subjective: Patient up in bed of high flow. - Objective Vital Signs & Weight: Vital Signs (12 hours) Temp Pulse Resp BP BP Pulse Ox 03/21/20 07:42 98.5 F 83 18 118/62 100 03/21/20 03:46 98.2 F 84 20 116/68 100 03/20/20 20:53 98.7 F 83 14 123/58 L 100 03/20/20 20:00 100 Weight Admit Weight 157 lb 1.6 oz Weight 143 lb 9.6 oz I&O: 03/20/20 03/21/20 03/22/20 06:59 06:59 06:59 Intake Total 1700 1440 Output Total 1400 1750 Balance 300 -310 Result Diagrams: 03/18/20 05:14 03/20/20 05:40 Additional Labs: Accuchecks 03/21/20 03/20/20 03/20/20 06:07 21:07 11:23 POC Glucose 81 157 H 184 H Hospitalist ROS - Review of Systems Cardiovascular: denies: chest pain, palpitations, orthopnea, paroxysmal noc. dyspnea, edema, light headedness, other Gastrointestinal: denies: nausea, vomiting, abdominal pain, diarrhea, constipation, melena, hematochezia, other Genitourinary: denies: dysuria, frequency, incontinence, hematuria, retention, other - Medication Medications: Active Medications Generic Name Dose Route Start Last Admin Trade Name Freq PRN Reason Stop Dose Admin Albuterol Sulfate 2 puff 03/05/20 21:15 03/14/20 21:07 Albuterol 200 Puff (6.7gm Inhaler) INH 2 puff [id number] PRN Administration Wheezing Ascorbic Acid 500 mg 03/13/20 09:00 03/20/20 09:11 Ascorbic Acid 500 Mg Chewable Tablet PO 500 mg DAILY CRUZITO Administration Aspirin 81 mg 03/05/20 09:00 03/20/20 09:11 Aspirin 81 Mg Enteric Coated Tablet PO 81 mg DAILY CRUZITO Administration Atorvastatin Calcium 10 mg 03/05/20 21:00 03/20/20 21:00 Atorvastatin Calcium 10 Mg Tab PO 10 mg HS CRUZITO Administration Benzonatate 100 mg 03/05/20 21:11 03/06/20 21:02 Benzonatate 100 Mg Cap PO 100 mg TIDPRN PRN Administration Cough Carvedilol 3.125 mg 03/19/20 21:00 03/20/20 21:00 Carvedilol 3.125 Mg Tab PO 3.125 mg BID CRUZITO Administration Cholecalciferol 400 units 03/14/20 09:00 03/20/20 09:10 Cholecalciferol (Vitamin D3) 400 Units Tab PO 400 units DAILY CRUZITO Administration Enoxaparin Sodium 70 mg 03/11/20 21:00 03/20/20 21:00 Enoxaparin Sodium 80 Mg/0.8 Ml Syringe SC 70 mg 0900,2100 CRUZITO Administration Famotidine 20 mg 03/07/20 21:00 03/20/20 21:00 Famotidine 20 Mg Tab PO 20 mg Q12HR CRUZITO Administration Furosemide 20 mg 03/14/20 06:00 03/21/20 05:59 Furosemide 20 Mg/2 Ml Vial SLOW IVP 20 mg 0600,1400 CRUZITO Administration Guaifenesin 200 mg 03/12/20 11:30 03/13/20 21:05 Guaifenesin 200 Mg Tab PO 200 mg Q4H PRN Administration Cough Insulin Glargine 10 units/ 0.1 mls @ 0 mls/hr 03/14/20 21:00 03/20/20 21:03 Miscellaneous Medication SC 0.1 mls HS CRUZITO Administration Insulin Glargine 5 units/ 0.05 mls @ 0 mls/hr 03/14/20 09:00 03/20/20 09:10 Miscellaneous Medication SC 0.05 mls QAM CRUZITO Administration Insulin Human Lispro 0 units 03/07/20 23:11 03/17/20 21:27 Humalog 300 Units/3 Ml Vial SC 2 unit .BEDTIME SLIDING SC PRN Administration Bedtime Correctional Scale Insulin Human Lispro 0 units 03/10/20 17:14 03/20/20 11:50 Humalog 300 Units/3 Ml Vial SC 2 unit .MODERATE SLIDING SC PRN Administration Moderate Correctional Scale Losartan Potassium 25 mg 03/05/20 09:00 03/20/20 09:11 Losartan 25 Mg Tab PO 25 mg DAILY CRUZITO Administration Metformin HCl 500 mg 03/07/20 17:00 03/20/20 17:35 Metformin 500 Mg Tab PO 500 mg BID-WM CRUZITO Administration Mometasone Furoate/Formoterol Fumar 0 puff 03/18/20 18:30 03/21/20 05:59 Mometasone 100 Mcg/Formoterol 5 Mcg 120 Puff Inhaler INH 1 puff BID-RT CRUZITO Administration Potassium Chloride 20 meq 03/14/20 08:00 03/20/20 17:35 Potassium Chloride 20 Meq Tab PO 20 meq BID-WM CRUZITO Administration Prednisone 10 mg 03/20/20 08:00 03/20/20 09:12 Prednisone 20 Mg Tab PO 10 mg QAM-WM CRUZITO Administration Sodium Chloride 10 ml 03/04/20 04:00 03/18/20 08:21 Flush - Normal Saline 10 Ml Syringe IVF 10 ml PRN PRN Administration Saline Flush Throat Lozenges 1 faustino 03/05/20 13:52 03/15/20 08:18 Cepastat Lozenges 1 Faustino PO 1 faustino Q2H PRN Administration Sore Throat Zinc Sulfate 220 mg 03/13/20 09:00 03/20/20 09:11 Zinc Sulfate 220 Mg Cap PO 220 mg DAILY CRUZITO Administration - Exam Neck: negative: supple, symmetric, no JVD, no thyromegaly, no lymphadenopathy, no carotid bruit, JVD Heart: negative: RRR, no murmur, no gallops, no rubs, normal peripheral pulses, irregular, diminshed peripheral pulses, murmur present, II/IV, III/IV Respiratory: negative: CTAB, no wheezes, no rales, no ronchi, normal chest expansion, no tachypnea, normal percussion, rales, rhonchi, tachypneic, wheezes Gastrointestinal: negative: soft, non-tender, non-distended, normal bowel sounds, no palpable masses, no hepatomegaly, no splenomegaly, no bruit, no guarding, no rigidity, tender to palpation, distended, diminished bowl sounds, voluntary guarding Hosp A/P (1) CAD (coronary artery disease) Code(s): I25.10 - ATHSCL HEART DISEASE OF [place] CORONARY ARTERY W/O ANG PCTRS Status: Chronic (2) Hypertension Code(s): I10 - ESSENTIAL (PRIMARY) HYPERTENSION Status: Chronic (3) Acute respiratory failure with hypoxia Code(s): J96.01 - ACUTE RESPIRATORY FAILURE WITH HYPOXIA Status: Acute (4) COVID-19 Code(s): U07.1 - COVID-19 Status: Acute - Plan Patient currently on 6 L desats on minimal movement. He does not appear tachypneic on physical examination. Patient currently on Lasix. Will get a chest x-ray in a.m. Inflammatory markers continue to improve. We will continue current treatment however will check labs in the morning. Patient currently on DVT prophylaxis. We will add a steroid inhaler. 03/15 patient became very hypoxic on minimal movement was started on high flow. Will continue current treatment very slow recovery. Patient on DVT prophylaxis and steroids. 03/16 patient became hypotensive and dropped his sats when got up with physical therapy. Will hold Lasix for now we will give a little bit of normal saline bolus. Patient's overall recovery is very slow is been here for about 13 days and continued to improve minimally. Chest x-ray looks worse. His antibiotics have been discontinued. We will decrease his steroids to 20 mg a day. Patient is on full dose anticoagulation. I have encouraged him to use incentive spirometer. 03/17 we will continue to hold diuretics for now. Patient currently continues to be on high flow. Continue steroids hopefully will taper it off soon. Patient on DVT prophylaxis. 03/19 patient currently is on high flow we will ask nursing staff to start weaning off. However patient desats on minimal movement. Patient currently on FiO2 of 35%. 03/20 pt off high flow and has been working with PT. will continue current treatment. possible home if he continues to improve.
[2020-03-21] MEDS: Insulin Glargine 5 UNITS in Pre-Filled Syringe 1 EACH SC SCH (09:25)
[2020-03-21] MEDS: Enoxaparin Sodium 80 MG/0.8 ML SYRINGE SC SCH ×2 (09:27→20:47)
[2020-03-21] MEDS: Potassium Chloride 20 MEQ TAB PO SCH ×2 (09:27→16:40)
[2020-03-21] MEDS: predniSONE 20 MG TAB PO SCH (09:27)
[2020-03-21] MEDS: Losartan 25 MG TAB PO SCH (09:27)
[2020-03-21] MEDS: Carvedilol 3.125 MG TAB PO SCH ×3 (09:28→20:47)
[2020-03-21] MEDS: Cholecalciferol (Vitamin D3) 400 UNITS TAB PO SCH (09:28)
[2020-03-21] MEDS: Zinc Sulfate 220 MG CAP PO SCH (09:28)
[2020-03-21] MEDS: Aspirin 81 mg Enteric Coated Tablet PO SCH (09:28)
[2020-03-21] MEDS: metFORMIN 500 MG TAB PO SCH ×2 (09:28→16:40)
[2020-03-21] MEDS: Famotidine 20 MG TAB PO SCH ×2 (09:28→20:47)
[2020-03-21] MEDS: Ascorbic Acid 500 mg Chewable Tablet PO SCH (09:28)
--- NOTE | 2020-03-21 15:43 | PDOC.HOSPP ---
- Subjective Encounter Date: 03/21/20 Encounter Time: 11:45 Subjective: Patient up in bed on nasal cannula no complaints. - Objective Vital Signs & Weight: Vital Signs (12 hours) Temp Pulse Pulse Pulse Resp BP BP 03/21/20 13:10 89 86 118/56 L 93/54 L 03/21/20 11:10 98.5 F 78 20 03/21/20 09:45 03/21/20 08:08 03/21/20 07:42 98.5 F 83 18 03/21/20 03:46 98.2 F 84 20 BP Pulse Ox Pulse Ox Pulse Ox 03/21/20 13:10 100 99 03/21/20 11:10 112/68 100 03/21/20 09:45 93 L 03/21/20 08:08 100 03/21/20 07:42 118/62 100 03/21/20 03:46 116/68 100 Weight Admit Weight 157 lb 1.6 oz Weight 143 lb 9.6 oz I&O: 03/20/20 03/21/20 03/22/20 06:59 06:59 06:59 Intake Total 1700 1440 Output Total 1400 1750 Balance 300 -310 Result Diagrams: 03/18/20 05:14 03/20/20 05:40 Additional Labs: Accuchecks 03/21/20 03/20/20 06:07 21:07 POC Glucose 81 157 H Hospitalist ROS - Review of Systems Cardiovascular: denies: chest pain, palpitations, orthopnea, paroxysmal noc. dyspnea, edema, light headedness, other Gastrointestinal: denies: nausea, vomiting, abdominal pain, diarrhea, constipation, melena, hematochezia, other Genitourinary: denies: dysuria, frequency, incontinence, hematuria, retention, other - Medication Medications: Active Medications Generic Name Dose Route Start Last Admin Trade Name Freq PRN Reason Stop Dose Admin Albuterol Sulfate 2 puff 03/05/20 21:15 03/14/20 21:07 Albuterol 200 Puff (6.7gm Inhaler) INH 2 puff [id number] PRN Administration Wheezing Ascorbic Acid 500 mg 03/13/20 09:00 03/21/20 09:28 Ascorbic Acid 500 Mg Chewable Tablet PO 500 mg DAILY CRUZITO Administration Aspirin 81 mg 03/05/20 09:00 03/21/20 09:28 Aspirin 81 Mg Enteric Coated Tablet PO 81 mg DAILY CRUZITO Administration Atorvastatin Calcium 10 mg 03/05/20 21:00 03/20/20 21:00 Atorvastatin Calcium 10 Mg Tab PO 10 mg HS CRUZITO Administration Benzonatate 100 mg 03/05/20 21:11 03/06/20 21:02 Benzonatate 100 Mg Cap PO 100 mg TIDPRN PRN Administration Cough Carvedilol 3.125 mg 03/19/20 21:00 03/21/20 09:28 Carvedilol 3.125 Mg Tab PO 3.125 mg BID CRUZITO Administration Cholecalciferol 400 units 03/14/20 09:00 03/21/20 09:28 Cholecalciferol (Vitamin D3) 400 Units Tab PO 400 units DAILY CRUZITO Administration Enoxaparin Sodium 70 mg 03/11/20 21:00 03/21/20 09:27 Enoxaparin Sodium 80 Mg/0.8 Ml Syringe SC 70 mg 0900,2100 CRUZITO Administration Famotidine 20 mg 03/07/20 21:00 03/21/20 09:28 Famotidine 20 Mg Tab PO 20 mg Q12HR CRUZITO Administration Furosemide 20 mg 03/14/20 06:00 03/21/20 14:02 Furosemide 20 Mg/2 Ml Vial SLOW IVP 20 mg 0600,1400 CRUZITO Administration Guaifenesin 200 mg 03/12/20 11:30 03/13/20 21:05 Guaifenesin 200 Mg Tab PO 200 mg Q4H PRN Administration Cough Insulin Glargine 10 units/ 0.1 mls @ 0 mls/hr 03/14/20 21:00 03/20/20 21:03 Miscellaneous Medication SC 0.1 mls HS CRUZITO Administration Insulin Glargine 5 units/ 0.05 mls @ 0 mls/hr 03/14/20 09:00 03/21/20 09:25 Miscellaneous Medication SC 0.05 mls QAM CRUZITO Administration Insulin Human Lispro 0 units 03/07/20 23:11 03/17/20 21:27 Humalog 300 Units/3 Ml Vial SC 2 unit .BEDTIME SLIDING SC PRN Administration Bedtime Correctional Scale Insulin Human Lispro 0 units 03/10/20 17:14 03/20/20 11:50 Humalog 300 Units/3 Ml Vial SC 2 unit .MODERATE SLIDING SC PRN Administration Moderate Correctional Scale Losartan Potassium 25 mg 03/05/20 09:00 03/21/20 09:27 Losartan 25 Mg Tab PO 25 mg DAILY CRUZITO Administration Metformin HCl 500 mg 03/07/20 17:00 03/21/20 09:28 Metformin 500 Mg Tab PO 500 mg BID-WM CRUZITO Administration Mometasone Furoate/Formoterol Fumar 0 puff 03/18/20 18:30 03/21/20 05:59 Mometasone 100 Mcg/Formoterol 5 Mcg 120 Puff Inhaler INH 1 puff BID-RT CRUZITO Administration Potassium Chloride 20 meq 03/14/20 08:00 03/21/20 09:27 Potassium Chloride 20 Meq Tab PO 20 meq BID-WM CRUZITO Administration Prednisone 10 mg 03/20/20 08:00 03/21/20 09:27 Prednisone 20 Mg Tab PO 10 mg QAM-WM CRUZITO Administration Sodium Chloride 10 ml 03/04/20 04:00 03/18/20 08:21 Flush - Normal Saline 10 Ml Syringe IVF 10 ml PRN PRN Administration Saline Flush Throat Lozenges 1 faustino 03/05/20 13:52 03/15/20 08:18 Cepastat Lozenges 1 Faustino PO 1 faustino Q2H PRN Administration Sore Throat Zinc Sulfate 220 mg 03/13/20 09:00 03/21/20 09:28 Zinc Sulfate 220 Mg Cap PO 220 mg DAILY CRUZITO Administration - Exam Neck: negative: supple, symmetric, no JVD, no thyromegaly, no lymphadenopathy, no carotid bruit, JVD Heart: negative: RRR, no murmur, no gallops, no rubs, normal peripheral pulses, irregular, diminshed peripheral pulses, murmur present, II/IV, III/IV Respiratory: negative: CTAB, no wheezes, no rales, no ronchi, normal chest expansion, no tachypnea, normal percussion, rales, rhonchi, tachypneic, wheezes Gastrointestinal: negative: soft, non-tender, non-distended, normal bowel sounds, no palpable masses, no hepatomegaly, no splenomegaly, no bruit, no guarding, no rigidity, tender to palpation, distended, diminished bowl sounds, voluntary guarding Hosp A/P (1) CAD (coronary artery disease) Code(s): I25.10 - ATHSCL HEART DISEASE OF [place] CORONARY ARTERY W/O ANG PCTRS Status: Chronic (2) Hypertension Code(s): I10 - ESSENTIAL (PRIMARY) HYPERTENSION Status: Chronic (3) Acute respiratory failure with hypoxia Code(s): J96.01 - ACUTE RESPIRATORY FAILURE WITH HYPOXIA Status: Acute (4) COVID-19 Code(s): U07.1 - COVID-19 Status: Acute - Plan Patient currently on 6 L desats on minimal movement. He does not appear tachypneic on physical examination. Patient currently on Lasix. Will get a chest x-ray in a.m. Inflammatory markers continue to improve. We will continue current treatment however will check labs in the morning. Patient currently on DVT prophylaxis. We will add a steroid inhaler. 03/15 patient became very hypoxic on minimal movement was started on high flow. Will continue current treatment very slow recovery. Patient on DVT prophylaxis and steroids. 03/16 patient became hypotensive and dropped his sats when got up with physical therapy. Will hold Lasix for now we will give a little bit of normal saline bolus. Patient's overall recovery is very slow is been here for about 13 days and continued to improve minimally. Chest x-ray looks worse. His antibiotics have been discontinued. We will decrease his steroids to 20 mg a day. Patient is on full dose anticoagulation. I have encouraged him to use incentive spirometer. 03/17 we will continue to hold diuretics for now. Patient currently continues to be on high flow. Continue steroids hopefully will taper it off soon. Patient on DVT prophylaxis. 03/19 patient currently is on high flow we will ask nursing staff to start weaning off. However patient desats on minimal movement. Patient currently on FiO2 of 35%. 03/20 pt off high flow and has been working with PT. will continue current treatment. possible home if he continues to improve. 03/21 patient ambulated with physical therapy oxygen saturations on 3 L did not drop below 90%. We will stop prednisone.
[2020-03-21] MEDS: Atorvastatin Calcium 10 MG TAB PO SCH (20:47)
[2020-03-21] MEDS: Insulin Glargine 10 UNITS in Pre-Filled Syringe 1 EACH SC SCH (20:48)
[2020-03-22 06:02] LABS: #Eosinphils 0.1 thou/uL (0.0-0.7); #Lymphocytes 1.2 thou/uL (1.20-3.40); #Monocytes 0.8 thou/uL (0.11-0.59); #Neutrophils 4.4 thou/uL (1.40-6.50); %Basophils 0.1 % (0.0-1.0); %Eosinophils 1.3 % (0.0-10.0); %Monocytes 12.3 % (0.0-10.0); %Neutrophils 67.3 % (42.0-75.0); Mean Corpuscular HGB CONC 31.8 g/dL (32.0-36.0); Mean Corpuscular Volume 84.9 fL (78.0-98.0); Mean Platelet Volume 8.4 fL (7.4-10.4); Platelet Count 276 thou/uL (130-400); Red Blood Cell (RBC) Count 3.32 mill/uL (4.70-6.10); White Blood Cell (WBC) Count 6.5 thou/uL (4.8-10.8)
[2020-03-22] MEDS: Mometasone 100 MCG/Formoterol 5 MCG 120 PUFF INHALER INH SCH ×2 (06:06→18:32)
[2020-03-22] MEDS: Furosemide 20 MG/2 ML VIAL SLOW IVP SCH (06:06)
[2020-03-22 06:21] LABS: ALT (SGPT) 35 U/L (8-55); AST (SGOT) 21 U/L (5-34); Alkaline Phosphatase 67 U/L (40-110); Anion Gap 13 mmol/L (10-20); BUN (Urea Nitrogen) 36 mg/dL (8.4-25.7); Bilirubin, Direct 0.1 mg/dL (0.1-0.3); Bilirubin, Total 0.3 mg/dL (0.2-1.2); Calc. Creatinine Clearance 59 mL/min (70-130); Calcium 8.5 mg/dL (7.8-10.44); Carbon Dioxide 28 mmol/L (23-31); Chloride 99 mmol/L (98-107); Glucose 84 mg/dL (83-110); Potassium 4.4 mmol/L (3.5-5.1); Protein, Total 5.6 g/dL (5.8-8.1); Sodium 136 mmol/L (136-145)
[2020-03-22] MEDS: Cholecalciferol (Vitamin D3) 400 UNITS TAB PO SCH (08:53)
[2020-03-22] MEDS: metFORMIN 500 MG TAB PO SCH ×2 (08:53→18:31)
[2020-03-22] MEDS: Potassium Chloride 20 MEQ TAB PO SCH ×2 (08:53→18:31)
[2020-03-22] MEDS: Famotidine 20 MG TAB PO SCH (08:53)
[2020-03-22] MEDS: Zinc Sulfate 220 MG CAP PO SCH (08:53)
[2020-03-22] MEDS: Carvedilol 3.125 MG TAB PO SCH (08:53)
[2020-03-22] MEDS: Ascorbic Acid 500 mg Chewable Tablet PO SCH (08:53)
[2020-03-22] MEDS ORDERED: Aspirin 81 mg Enteric Coated Tablet PO SCH (09:00)
[2020-03-22] MEDS ORDERED: Losartan 25 MG TAB PO SCH (09:00)
[2020-03-22] MEDS ORDERED: Spironolactone 25 MG TAB PO SCH (09:00)
--- NOTE | 2020-03-22 15:55 | PRG ---
DATE OF SERVICE: 03/22/2020 SUBJECTIVE: The patient is improving quite a bit since I last saw him. He is feeling better. He is not coughing much. No abdominal pain. No diarrhea. No genitourinary symptoms. OBJECTIVE: VITAL SIGNS: He has been afebrile and is saturating 100% now 2 L nasal cannula compared with the high-flow nasal cannula O2 in the previous days. GENERAL: He looks good. He is not diaphoretic. He is speaking full sentences, pretty strong, sits up in bed very rapidly. LUNGS: Quite clear to auscultation. There is a little bit decreased breath sounds at the left base. No wheezing or crackles. HEART: S1, S2 regular rate. ABDOMEN: Soft, not distended or tender. EXTREMITIES: Moves all extremities equally. LABORATORY DATA: White cell count is 6.5, hemoglobin 9, platelets 276. The D- dimer is down to 0.81 and ferritin has been normal for a long time now. The CRP is less than 0.5. ASSESSMENT AND DISCUSSION: Hypertension, ischemic cardiomyopathy, severe COVID pneumonia with marked improvement. Today is the nd day of illness. Clear-cut improvement, and he is ready for discharge planning. He may need O2 supplementation in the home setting. Job ID: [id number] [facility]
[2020-03-22 17:17] VITALS: BP 126/60; TEMP 97.7
--- NOTE | 2020-03-22 18:13 | PDOC.DS.DS ---
Provider - Provider Date of Admission: 03/04/20 00:57 Date of Discharge: 03/22/20 Admitting Provider: Kristi Collazo MD Consultations: Cardiology, Infectious Disease Primary Care Physician: Leah Kaba MD Course - Hospital Course Hospital Course: Patient is a very pleasant 79-year-old male who initially presented to the hospital with body aches, cough and diarrhea. At this time patient was noted to be Covid positive. Seen by infectious disease and cardiology. Was put on full dose anticoagulation. Patient initially was put on IV antibiotics and also was put on steroids. These were discontinued. Patient also was on high flow then was weaned off to 2 to 3 L nasal cannula. Patient was ambulated by physical therapy consecutively for 2 days and did not desat below 90% on oxygen. She also was seen by cardiology given his low EF he was started on some IV diuretics which he tolerated well. Patient has completed the course of steroids and antibiotics. We will discharge him with his home medications. His hospital course was complicated with a few beats of V. tach in which time he was put on a beta-deanna and his electrolytes were checked. Patient had no more recurrence of this. She is on aspirin and Plavix which I will continue I do not think this patient requires any more DVT prophylaxis. I have encouraged him to ambulate. Home health will be arranged for this patient. Resuscitation Status: 03/04/20 00:53 Resuscitation Status Routine Resuscitation Status: FULL: Full Resuscitation - Labs Lab Results: 03/22/20 05:30 03/22/20 05:30 Abnormal Lab Results - Last 48 hrs 03/21/20 04:27: D-Dimer 1.03 H 03/21/20 04:27: Albumin 3.1 L 03/22/20 05:30: D-Dimer 0.81 H 03/22/20 05:30: BUN 36 H, Serum Total Protein 5.6 L, Albumin 3.0 L 03/22/20 05:30: RBC 3.32 L, Hgb 9.0 L, Hct 28.2 L, MCHC 31.8 L, Lymphocytes % 19.0 L, Monocytes % 12.3 H, Monocytes # 0.8 H Microbiology - Entire Visit 03/03/20 23:26 Venous blood - Left Arm Blood Culture - Final NO GROWTH IN 5 DAYS 03/03/20 23:29 Venous blood - Right Arm Blood Culture - Final Coagulase Neg Staphylococcus - Physical Exam Vitals: Vital Signs (12 hours) Temp Pulse Resp BP Pulse Ox Pulse Ox Pulse Ox 03/22/20 15:26 92 L 03/22/20 15:25 86 L 03/22/20 15:21 97.7 F 89 20 126/60 97 03/22/20 13:42 95 96 03/22/20 11:05 96.9 F L 79 12 139/62 100 03/22/20 09:04 98.7 F 89 20 111/59 L 100 Weight Admit Weight 157 lb 1.6 oz Weight 135 lb 4.8 oz Physical Exam: The patient was seen and examined on the day of discharge. Problem - Problem (1) CAD (coronary artery disease) Code(s): I25.10 - ATHSCL HEART DISEASE OF [place] CORONARY ARTERY W/O ANG PCTRS Status: Chronic (2) Hypertension Code(s): I10 - ESSENTIAL (PRIMARY) HYPERTENSION Status: Chronic (3) Acute respiratory failure with hypoxia Code(s): J96.01 - ACUTE RESPIRATORY FAILURE WITH HYPOXIA Status: Acute (4) COVID-19 Code(s): U07.1 - COVID-19 Status: Acute Plan - Discharge Medications Prescriptions: Carvedilol [Coreg] 3.125 mg PO BID #60 tab Mometasone/Formoterol 100/5 [Dulera 100 Mcg/5 Mcg Inhaler] 0 puff INH BID-RT #1 inh Furosemide [Lasix] 40 mg PO DAILY-AC #30 tab Albuterol Sulfate [Proventil Hfa] 2 puff INH [id number] PRN #1 aer PRN Reason: Wheezing Ascorbic Acid [Vitamin C] 500 mg PO DAILY #30 tab Cholecalciferol (Vitamin D3) [Vitamin D3] 400 units PO DAILY #30 tab Zinc Sulfate 220 mg PO DAILY #30 cap Home Medications: Medication Instructions Recorded Confirmed Type Aspirin [Ecotrin Low Strength] 81 mg PO DAILY 11/17/17 02/20/20 History Spironolactone 12.5 mg PO DAILY #0 11/18/17 02/20/20 Rx Clopidogrel Bisulfate [Clopidogrel] 1 tab PO HS 12/22/19 02/20/20 History Aspirin [Mo Chewable Aspirin] 81 mg PO DAILY 03/04/20 03/04/20 History Atorvastatin Calcium 10 mg PO HS 03/04/20 03/05/20 History Losartan [Cozaar] 25 mg PO DAILY 03/04/20 03/04/20 History Spironolactone 0.5 tab PO DAILY 03/04/20 03/04/20 History Albuterol Sulfate [Proventil Hfa] 2 puff INH [id number] PRN #1 aer 03/22/20 Rx Ascorbic Acid [Vitamin C] 500 mg PO DAILY #30 tab 03/22/20 Rx Carvedilol [Coreg] 3.125 mg PO BID #60 tab 03/22/20 Rx Cholecalciferol (Vitamin D3) 400 units PO DAILY #30 tab 03/22/20 Rx [Vitamin D3] Furosemide [Lasix] 40 mg PO DAILY-AC #30 tab 03/22/20 Rx Mometasone/Formoterol 100/5 0 puff INH BID-RT #1 inh 03/22/20 Rx [Dulera 100 Mcg/5 Mcg Inhaler] Zinc Sulfate 220 mg PO DAILY #30 cap 03/22/20 Rx Allergies: No Known Allergies Allergy (Verified 03/13/20 07:29) - Follow up Plan Referrals: [facility] [Outside] - 1 Day Leah Kaba MD [Primary Care Provider] - 7 Days Disposition: HOME Quality - Care Measures CORE MEASURES:: N/A
[2020-03-22] MEDS ORDERED: Atorvastatin Calcium 10 MG TAB PO SCH (21:00)
[2020-03-22] MEDS ORDERED: Clopidogrel Bisulfate 75 MG TAB PO SCH (21:00)
--- NOTE | 2020-03-23 01:15 | PQF ---
Dear : Cely Goel Date 03/23/2020 Please exercise your independent, professional judgment in responding to the clarification form. Clinical indicators are provided on the bottom of this form for your review Can you please further clarify the diagnosis fo the patient? Please check appropriate box(es): [ x ] Sepsis due to: COVID19 Pneumonia [ ] Severe sepsis [ ] Acute Respiratory Failure [ ] Localized infection without sepsis [ ] Other diagnosis [ ] Unable to determine Physician Signature: Date/Time: For continuity of documentation, please document condition throughout progress notes and discharge summary. Thank You. To be completed by CDI/Coding staff for physician review: Present Clinical Indicators - Signs / Symptoms / Labs Results and Location in Medical Record [ x ] VS: BP: 119/58, Pulse 94, RR: 22, T: 102.4 ED Provider pg.2 [ x ] Patient here for fever cough and diarrhea ED Provider pg.3 [ x ] Patient was a sepsis alert ED Provider pg.3 [ x ] CT Chest Consistent with with viral/COVID pneumonia H and P pg.1 [ x ] If respiratory failure or sepsis present, add as separate assessment Hospitalist PN pg.3 [ x ] Patient with increased respiratory rate and moment of confusion Event note pg.1 [ x ] Still appears somewhat tachypneic Event note pg.1 [ x ] WBC: 7.5, 7.2, 10.8, 9.1, 9.9, 8.2, 6.5 Laboratory [ x ] Blood culture- no growth in 5 days Microbiology Present Risk Factors Results and Location in Medical Record [ x ] COVID Pneumonia ED Provider pg.3 [ x ] 79 years old H and P pg.1 Present Treatments Results and Location in Medical Record [ x ] Chest CT 03/[address] 03/03 [ x ] Chest X ray 03/03 Chest X ray 03/03 [ x ] Infectious Consult Dr. Rodriguez 03/06 [ x ] IV Fluids MAR [ x ] Azithromycin 500mg IV MAR [ x ] Rocephin 1gm IV MAR [ x ] Isolation H and P.3 CDS/Underlay Stitcher Signature: Clifford Yan Phone #: ext [phone] Date 03/23/2020 _ This is a permanent part of the Medical Record [facility]
[2020-03-23] MEDS ORDERED: Furosemide 40 MG TAB PO SCH (07:30)
[2020-03-23] MEDS ORDERED: Enoxaparin Sodium 40 MG/0.4 ML SYRINGE SC SCH ×2 (09:00)
== END 2020-03-22 18:35 | disposition home or self-care (01) | DRG 871 ==
LOC: ERS 22:53 → 2SW 03-04 00:57
PROVIDERS: ADMIT Internal Medicine; ATTEND Internal Medicine
PROC: 8E0ZXY6 Isolation (ICD-10-PCS; principal; 2020-03-04)
PROC: XW033E5 Introduction of Remdesivir Anti-infective into Peripheral Vein, Percutaneous Approach, New Technology Group 5 (ICD-10-PCS; 2020-03-05)
PROC: XW13325 Transfusion of Convalescent Plasma (Nonautologous) into Peripheral Vein, Percutaneous Approach, New Technology Group 5 (ICD-10-PCS; 2020-03-06)
DX: A41.89 Other specified sepsis (principal); U07.1 COVID-19; J12.89 Other viral pneumonia; J96.01 Acute respiratory failure with hypoxia; E87.1 Hypo-osmolality and hyponatremia; I47.2 Ventricular tachycardia; I25.10 Atherosclerotic heart disease of native coronary artery without angina pectoris; E78.5 Hyperlipidemia, unspecified; D63.8 Anemia in other chronic diseases classified elsewhere; I25.5 Ischemic cardiomyopathy; I50.9 Heart failure, unspecified; E11.65 Type 2 diabetes mellitus with hyperglycemia; I11.0 Hypertensive heart disease with heart failure; I95.9 Hypotension, unspecified; Z95.1 Presence of aortocoronary bypass graft; Z90.49 Acquired absence of other specified parts of digestive tract; Z95.810 Presence of automatic (implantable) cardiac defibrillator; Z79.899 Other long term (current) drug therapy
CPT/HCPCS: 36415; 36416; 36430; 36600; 71045; 71250; 80048; 80053; 80076; 82306; 82728; 82805; 83036; 83605; 83615; 83735; 83880; 85014; 85018; 85025; 85027; 85049; 85379; 86140; 86850; 86900; 86901; 87040; 87149; 87635; 94664; 96365; 96372; J0456; J0696; J1100; J1650; J1815; J1940; J1956; J2543; J2920; J3490; J7050; J7512; P9017; S0028; U0002; U0003

== ENCOUNTER 2021-11-28 11:08 | Outpatient (CLI) | payer MEDICARE ==
[2021-11-28 12:39] LABS: #Eosinphils 0.2 10x3/uL (0.0-0.5); #Monocytes 0.6 10x3/uL (0.0-1.1); #Neutrophils 4.4 10x3/uL (1.5-8.4); %Basophils 0.6 % (0.0-2.0); %Eosinophils 3.5 % (0.0-6.0); %Lymphocytes 20.9 % (18.0-47.0); %Monocytes 9.4 % (0.0-10.0); %Neutrophils 65.3 % (40.0-75.0); Hemoglobin 11.7 g/dL (13.5-17.5); Mean Corpuscular HGB CONC 32.4 g/dL (32.0-36.0); Mean Corpuscular Hemoglobin 27.5 pg (27.0-33.0); Mean Corpuscular Volume 84.7 fl (81.2-95.1); Platelet Count 241 10x3/uL (150-450); Red Blood Cell (RBC) Count 4.26 10x6/uL (4.32-5.72); White Blood Cell (WBC) Count 6.8 10x3/uL (3.5-10.5)
[2021-11-28 13:10] LABS: ALT (SGPT) 16 U/L (8-55); AST (SGOT) 14 U/L (5-34); Albumin 4.4 g/dL (3.4-4.8); Alkaline Phosphatase 93 U/L (40-110); Anion Gap 12 mmol/L (10-20); BUN (Urea Nitrogen) 24 mg/dL (8.4-25.7); Bilirubin, Total 0.6 mg/dL (0.2-1.2); Calc. Creatinine Clearance 0 mL/min (70-130); Calcium 9.6 mg/dL (7.8-10.44); Carbon Dioxide 27 mmol/L (23-31); Chloride 106 mmol/L (98-107); Estimated GFR 76; Globulin 2.6 g/dL (2.4-3.5); Glucose 171 mg/dL (83-110); Potassium 4.7 mmol/L (3.5-5.1); Sodium 140 mmol/L (136-145)
== END 2021-11-28 11:09 | disposition home or self-care (01) ==
LOC: LABBT 11:08
PROVIDERS: ATTEND Surgery
DX: Z01.818 Encounter for other preprocedural examination (principal); K40.90 Unilateral inguinal hernia, without obstruction or gangrene, not specified as recurrent; Z20.822 Contact with and (suspected) exposure to COVID-19
CPT/HCPCS: 80053; 85025; 87811; 93005; 93010

== ENCOUNTER 2021-12-03 10:42 | Observation (INO) | payer MEDICARE ==
[2021-12-02 09:30] VITALS: BMI 24.7
[2021-12-03] MEDS ORDERED: Bupivacaine/Epinephrine 0.25% 30 ML VIAL ONE ×2 (13:43→17:51)
[2021-12-03] MEDS ORDERED: fentaNYL Citrate/PF 100 MCG/2 ML SYRINGE ONE ×2 (14:10→17:39)
[2021-12-03] MEDS ORDERED: Midazolam HCl 2 mg/2 ml Vial ONE (14:10)
[2021-12-03] MEDS ORDERED: SUGAMMADEX SODIUM 200 MG/2 ML VIAL ONE (14:11)
[2021-12-03] MEDS ORDERED: Dexamethasone 20 MG/5 ML VIAL ONE (14:17)
[2021-12-03] MEDS ORDERED: PROPOFOL 200 MG/20 ML VIAL ONE ×2 (14:17→18:10)
[2021-12-03] MEDS ORDERED: Ondansetron PF 4 MG/2 ML Vial ONE ×2 (14:17→18:10)
[2021-12-03] MEDS ORDERED: Rocuronium Bromide 10 MG/ML (10ML VIAL) ONE (14:17)
[2021-12-03] MEDS ORDERED: Lidocaine 1% PF 5 ML VIAL ONE ×2 (14:17→18:10)
[2021-12-03] MEDS ORDERED: Fentanyl 100 MCG/2 ML VIAL ONE (15:44)
[2021-12-03 18:08] LABS: Hemoglobin 10.7 g/dL (14.0-18.0)
[2021-12-03] MEDS ORDERED: Phenylephrine 10 MG/ML VIAL ONE (18:10)
[2021-12-03] MEDS ORDERED: Ondansetron PF 4 MG/2 ML Vial IVP PRN (19:02)
[2021-12-03] MEDS ORDERED: HYDROcodone/Acetaminophen 10/325 mg Tablet PO PRN (19:02)
[2021-12-03] MEDS ORDERED: Promethazine HCl 25 MG/ML VIAL IM PRN (19:02)
[2021-12-03] MEDS ORDERED: Morphine 2 MG/ML VIAL SLOW IVP PRN (19:02)
[2021-12-03] MEDS ORDERED: Dextrose 5% in Water 1,000 ML IV PRN (19:02)
[2021-12-03] MEDS ORDERED: Morphine 4 MG/ML VIAL SLOW IVP PRN (19:02)
[2021-12-03] MEDS ORDERED: Dextrose 50% Abboject 50 ML SYRINGE SLOW IVP PRN (19:02)
[2021-12-03] MEDS ORDERED: hydrALAZINE 20 MG/ML VIAL SLOW IVP PRN (19:02)
[2021-12-03] MEDS ORDERED: Atorvastatin Calcium 40 MG TAB PO SCH (21:00)
[2021-12-03] MEDS: Famotidine 20 MG TAB PO SCH (23:01)
[2021-12-03] MEDS: Famotidine/PF 20 mg/2ml Vial SLOW IVP SCH (23:01)
[2021-12-03] MEDS: Lactated Ringer's 1,000 ML IV SCH (23:02)
[2021-12-03] MEDS: Sacubitril 49 MG/Valsartan 51 MG TABLET PO SCH (23:02)
[2021-12-04] MEDS: HYDROcodone/Acetaminophen 10/325 mg Tablet PO PRN ×2 (02:44→11:11)
[2021-12-04 05:40] LABS: #Neutrophils 9.9 thou/uL (1.40-6.50); %Basophils 0.1 % (0.0-1.0); %Eosinophils 0.1 % (0.0-10.0); %Lymphocytes 8.6 % (21.0-51.0); %Monocytes 8.2 % (0.0-10.0); Hemoglobin 8.8 g/dL (14.0-18.0); Mean Corpuscular HGB CONC 31.6 g/dL (32.0-36.0); Mean Corpuscular Hemoglobin 27.6 pg (27.0-31.0); Mean Corpuscular Volume 87.4 fL (78.0-98.0); Mean Platelet Volume 8.8 fL (7.4-10.4); Platelet Count 182 thou/uL (130-400); RBC Distribution Width 12.4 % (11.5-14.5); Red Blood Cell (RBC) Count 3.18 mill/uL (4.70-6.10); White Blood Cell (WBC) Count 11.9 thou/uL (4.8-10.8)
[2021-12-04] MEDS: Lactated Ringer's 1,000 ML IV SCH (05:54)
[2021-12-04] MEDS ORDERED: Mometasone 100 MCG/Formoterol 5 MCG 120 PUFF INHALER INH SCH (06:30)
[2021-12-04] MEDS ORDERED: Carvedilol 25 MG TAB PO SCH (08:00)
[2021-12-04 08:33] VITALS: TEMP 98.4
[2021-12-04] MEDS: Famotidine 20 MG TAB PO SCH (08:52)
[2021-12-04] MEDS: Sacubitril 49 MG/Valsartan 51 MG TABLET PO SCH (08:53)
[2021-12-04] MEDS: Famotidine/PF 20 mg/2ml Vial SLOW IVP SCH (08:53)
[2021-12-04 08:54] VITALS: BP 116/60
[2021-12-04] MEDS ORDERED: Furosemide 20 MG TAB PO SCH (09:00)
== END 2021-12-04 11:30 | disposition home or self-care (01) ==
LOC: SDC 10:42 → SURG A 19:02
PROVIDERS: ADMIT Surgery; ATTEND Surgery
PROC: 0YU60JZ Supplement Left Inguinal Region with Synthetic Substitute, Open Approach (ICD-10-PCS; principal; 2021-12-03)
PROC: 0Y980ZZ Drainage of Left Femoral Region, Open Approach (ICD-10-PCS; 2021-12-03)
DX: K40.90 Unilateral inguinal hernia, without obstruction or gangrene, not specified as recurrent (principal); M96.840 Postprocedural hematoma of a musculoskeletal structure following a musculoskeletal system procedure; I11.0 Hypertensive heart disease with heart failure; I50.22 Chronic systolic (congestive) heart failure; E11.9 Type 2 diabetes mellitus without complications; I25.5 Ischemic cardiomyopathy; I25.10 Atherosclerotic heart disease of native coronary artery without angina pectoris; E78.5 Hyperlipidemia, unspecified; Z79.02 Long term (current) use of antithrombotics/antiplatelets; Z79.82 Long term (current) use of aspirin; Z79.84 Long term (current) use of oral hypoglycemic drugs; Z79.899 Other long term (current) drug therapy; Z95.1 Presence of aortocoronary bypass graft; Z95.810 Presence of automatic (implantable) cardiac defibrillator
CPT/HCPCS: 10140; 49505; 85014; 85018; 85025; 86850; 86900; 86901; 86920; 94640; C1781; 36415; J1100; J2250; J2370; J2405; J2704; J3010; J7120; S0028

== ENCOUNTER 2022-10-14 12:37 | Inpatient (IN) | payer MEDICARE ==
[~2022-10-14 12:37] MED LIST: Iopamidol-370 76% 500 ML MDV (1 ML CHARGE) ONE
[2022-10-14] MEDS ORDERED: Pantoprazole 40 MG VIAL ONE (13:48)
[2022-10-14] MEDS ORDERED: Ondansetron PF 4 MG/2 ML Vial ONE (13:48)
[2022-10-14 14:04] LABS: Bacteria/HPF None Seen HPF (None Seen); Bilirubin Negative (Negative); Blood, Urine Negative (Negative); CAUTI Indications for Culture Pelvic or flank pain; Clarity Turbid (Clear); Glucose, Urine (Dipstick) Normal (Negative); Ketone, Urine Negative (Negative); Leukocyte Negative Leu/uL (Negative); Nitrite Negative (Negative); Protein, Urine (Dipstick) 30 mg/dL (Neg-Trace); RBC/HPF 0-3 HPF (0-3); Squamous Epithelial 0-3 HPF (0-3); WBC/HPF 0-3 HPF (0-3); pH, Urine 5.5 (5.0-9.0)
[2022-10-14 14:05] LABS: Urine Culture Reflex No No
[2022-10-14 14:20] LABS: #Monocytes 0.6 thou/uL (0.11-0.59); #Neutrophils 10.6 thou/uL (1.40-6.50); %Basophils 0.3 % (0.0-1.0); %Eosinophils 0.3 % (0.0-10.0); %Lymphocytes 8.5 % (21.0-51.0); %Neutrophils 85.6 % (42.0-75.0); Mean Corpuscular HGB CONC 31.8 g/dL (32.0-36.0); Mean Corpuscular Hemoglobin 26.1 pg (27.0-31.0); Mean Platelet Volume 9.6 fL (7.4-10.4); Platelet Count 323 10x3/uL (130-400); RBC Distribution Width 15.1 % (11.5-14.5); Red Blood Cell (RBC) Count 4.22 mill/uL (4.70-6.10); White Blood Cell (WBC) Count 12.4 10x3/uL (4.8-10.8)
[2022-10-14 14:43] LABS: ALT (SGPT) 9 U/L (8-55); AST (SGOT) 12 U/L (5-34); Albumin 4.4 g/dL (3.4-4.8); Alkaline Phosphatase 102 U/L (40-110); Anion Gap 16 mmol/L (10-20); BUN (Urea Nitrogen) 34 mg/dL (8.4-25.7); Bilirubin, Total 0.7 mg/dL (0.2-1.2); CK (CPK) 44 U/L (30-200); Calc. Creatinine Clearance 0 mL/min (70-130); Calcium 10.1 mg/dL (7.8-10.44); Carbon Dioxide 25 mmol/L (23-31); Chloride 102 mmol/L (98-107); Estimated GFR 50; Globulin 3.4 g/dL (2.4-3.5); Glucose 200 mg/dL (83-110); Lipase 25 U/L (8-78); Potassium 4.4 mmol/L (3.5-5.1); Protein, Total 7.8 g/dL (5.8-8.1); Sodium 139 mmol/L (136-145)
[2022-10-14] MEDS ORDERED: Ondansetron ODT 4 MG TAB SL PRN (17:30)
[2022-10-14] MEDS ORDERED: Ondansetron PF 4 MG/2 ML Vial IVP PRN (17:30)
[2022-10-14] MEDS ORDERED: Insulin Regular 300 UNITS/3 ML VIAL SC PRN ×2 (17:46)
[2022-10-14] MEDS ORDERED: Dextrose 5% in Water 1,000 ML IV PRN (17:46)
[2022-10-14] MEDS ORDERED: Glucagon 1 MG/ML KIT IM PRN (17:46)
[2022-10-14] MEDS ORDERED: Dextrose 50% Abboject 50 ML SYRINGE SLOW IVP PRN (17:46)
[2022-10-14 17:56] VITALS: BMI 23.1
[2022-10-14] MEDS ORDERED: Piperacillin/Tazobactam 3.375 GM in Sodium Chloride 0.9% 100 ML IVPB SCH (18:30)
[2022-10-14 19:11] LABS: Sodium, Urine 41 mmol/L (Not Available); Urea Nitrogen, Random Urine 836 mg/dl
[2022-10-14 19:42] LABS: Cardiac Risk 2.9 (Less than 4.5)
[2022-10-14] MEDS ORDERED: GoLYTELY 4,000 ml Bottle PO SCH (20:00)
[2022-10-14] MEDS ORDERED: Famotidine 20 MG TAB PO SCH (21:00)
[2022-10-14] MEDS ORDERED: Carvedilol 25 MG TAB PO SCH ×2 (21:00)
[2022-10-14] MEDS: Heparin 5,000 UNITS/ML VIAL SC SCH (21:20)
[2022-10-14] MEDS: Sacubitril 49 MG/Valsartan 51 MG TABLET PO SCH (21:40)
[2022-10-14] MEDS: Atorvastatin Calcium 40 MG TAB PO SCH (21:41)
[2022-10-14] MEDS: Piperacillin/Tazobactam 3.375 GM in Sodium Chloride 0.9% 100 ML IVPB SCH (21:41)
[2022-10-14] MEDS: Ezetimibe 10 MG TAB PO SCH (21:41)
[2022-10-14] MEDS: Multivitamin W/ Minerals 1 TAB PO SCH (21:41)
[2022-10-15] MEDS: Piperacillin/Tazobactam 3.375 GM in Sodium Chloride 0.9% 100 ML IVPB SCH ×2 (06:19→15:01)
[2022-10-15 06:41] LABS: #Eosinphils 0.2 thou/uL (0.0-0.7); #Monocytes 0.8 thou/uL (0.11-0.59); #Neutrophils 4.6 thou/uL (1.40-6.50); %Basophils 0.6 % (0.0-1.0); %Eosinophils 2.2 % (0.0-10.0); %Monocytes 10.9 % (0.0-10.0); %Neutrophils 67.2 % (42.0-75.0); Mean Corpuscular HGB CONC 31.3 g/dL (32.0-36.0); Mean Corpuscular Hemoglobin 26.3 pg (27.0-31.0); Mean Corpuscular Volume 84.2 fl (78.0-98.0); Mean Platelet Volume 9.6 fL (7.4-10.4); Platelet Count 312 10x3/uL (130-400); RBC Distribution Width 15.3 % (11.5-14.5); White Blood Cell (WBC) Count 6.9 10x3/uL (4.8-10.8)
[2022-10-15 07:08] LABS: ALT (SGPT) 8 U/L (8-55); AST (SGOT) 13 U/L (5-34); Albumin 3.8 g/dL (3.4-4.8); Alkaline Phosphatase 83 U/L (40-110); Anion Gap 13 mmol/L (10-20); BUN (Urea Nitrogen) 27 mg/dL (8.4-25.7); Bilirubin, Total 0.7 mg/dL (0.2-1.2); Calc. Creatinine Clearance 48 mL/min (70-130); Calcium 9.5 mg/dL (7.8-10.44); Carbon Dioxide 25 mmol/L (23-31); Chloride 109 mmol/L (98-107); Estimated GFR 65; Globulin 3.1 g/dL (2.4-3.5); Glucose 131 mg/dL (83-110); Potassium 4.3 mmol/L (3.5-5.1); Protein, Total 6.9 g/dL (5.8-8.1); Sodium 143 mmol/L (136-145)
[2022-10-15] MEDS: Sacubitril 49 MG/Valsartan 51 MG TABLET PO SCH ×2 (08:38→20:49)
[2022-10-15] MEDS: Heparin 5,000 UNITS/ML VIAL SC SCH ×2 (08:38→20:50)
[2022-10-15] MEDS: Spironolactone 25 MG TAB PO SCH (08:39)
[2022-10-15] MEDS ORDERED: Furosemide 20 MG TAB PO SCH ×2 (09:00)
[2022-10-15] MEDS ORDERED: PROPOFOL 200 MG/20 ML VIAL ONE (10:43)
[2022-10-15] MEDS ORDERED: Lidocaine 1% PF 5 ML VIAL ONE (10:43)
[2022-10-15] MEDS: Carvedilol 6.25 MG TAB PO SCH (16:27)
[2022-10-15] MEDS: Famotidine 20 MG TAB PO SCH (20:49)
[2022-10-15] MEDS: Ezetimibe 10 MG TAB PO SCH (20:49)
[2022-10-15] MEDS: Atorvastatin Calcium 40 MG TAB PO SCH (20:49)
[2022-10-15] MEDS: Multivitamin W/ Minerals 1 TAB PO SCH (20:49)
[2022-10-16] MEDS: Carvedilol 6.25 MG TAB PO SCH ×2 (09:04→17:14)
[2022-10-16] MEDS: Sacubitril 49 MG/Valsartan 51 MG TABLET PO SCH ×2 (09:05→20:33)
[2022-10-16] MEDS: Spironolactone 25 MG TAB PO SCH (09:05)
[2022-10-16] MEDS: Heparin 5,000 UNITS/ML VIAL SC SCH ×2 (09:05→20:34)
[2022-10-16] MEDS ORDERED: Meropenem 2 GM, Admixture Fee 1 EACH in Sodium Chloride 0.9% 100 ML IVPB SCH (13:45)
[2022-10-16] MEDS ORDERED: Gabapentin 300 MG CAP PO SCH (14:30)
[2022-10-16] MEDS ORDERED: Ketorolac Tromethamine 30 MG/ML VIAL IVP SCH (14:30)
[2022-10-16] MEDS ORDERED: Bupivacaine/Epinephrine 0.25% 30 ML VIAL ONE (14:52)
[2022-10-16] MEDS: Ezetimibe 10 MG TAB PO SCH (20:34)
[2022-10-16] MEDS: Famotidine 20 MG TAB PO SCH (20:34)
[2022-10-16] MEDS: Atorvastatin Calcium 40 MG TAB PO SCH (20:34)
[2022-10-16] MEDS: Multivitamin W/ Minerals 1 TAB PO SCH (20:34)
[2022-10-17 06:28] LABS: #Basophils 0.1 thou/uL (0.0-0.2); #Eosinphils 0.3 thou/uL (0.0-0.7); #Monocytes 0.7 thou/uL (0.11-0.59); #Neutrophils 4.6 thou/uL (1.40-6.50); %Basophils 0.7 % (0.0-1.0); %Eosinophils 4.5 % (0.0-10.0); %Monocytes 9.9 % (0.0-10.0); %Neutrophils 64.6 % (42.0-75.0); Hemoglobin 9.6 g/dL (14.0-18.0); Mean Corpuscular HGB CONC 30.7 g/dL (32.0-36.0); Mean Corpuscular Hemoglobin 25.7 pg (27.0-31.0); Mean Corpuscular Volume 83.9 fl (78.0-98.0); Mean Platelet Volume 9.9 fL (7.4-10.4); Platelet Count 270 10x3/uL (130-400); RBC Distribution Width 15.4 % (11.5-14.5); Red Blood Cell (RBC) Count 3.73 mill/uL (4.70-6.10); White Blood Cell (WBC) Count 7.2 10x3/uL (4.8-10.8)
[2022-10-17] MEDS: Carvedilol 6.25 MG TAB PO SCH ×2 (06:56→16:04)
[2022-10-17 07:00] LABS: ALT (SGPT) 11 U/L (8-55); AST (SGOT) 27 U/L (5-34); Albumin 3.5 g/dL (3.4-4.8); Alkaline Phosphatase 79 U/L (40-110); Anion Gap 14 mmol/L (10-20); BUN (Urea Nitrogen) 22 mg/dL (8.4-25.7); Bilirubin, Total 0.5 mg/dL (0.2-1.2); Calc. Creatinine Clearance 51 mL/min (70-130); Calcium 9.2 mg/dL (7.8-10.44); Carbon Dioxide 21 mmol/L (23-31); Chloride 110 mmol/L (98-107); Estimated GFR 70; Glucose 108 mg/dL (83-110); Magnesium 2.5 mg/dL (1.6-2.6); Potassium 4.2 mmol/L (3.5-5.1); Protein, Total 6.5 g/dL (5.8-8.1); Sodium 141 mmol/L (136-145)
[2022-10-17] MEDS: Heparin 5,000 UNITS/ML VIAL SC SCH (07:52)
[2022-10-17] MEDS: Sacubitril 49 MG/Valsartan 51 MG TABLET PO SCH ×2 (08:51→20:27)
[2022-10-17] MEDS: Spironolactone 25 MG TAB PO SCH (08:51)
[2022-10-17] MEDS ORDERED: Lidocaine 1% MPF 2 ML VIAL ONE (09:41)
[2022-10-17] MEDS ORDERED: Bupivacaine/Epinephrine 0.25% 30 ML VIAL ONE (10:16)
[2022-10-17] MEDS ORDERED: Ketamine 50 MG/ML (10ML VIAL) ONE (10:20)
[2022-10-17] MEDS ORDERED: fentaNYL PF 100 MCG/2 ML SYRINGE ONE (10:20)
[2022-10-17] MEDS ORDERED: Midazolam HCl 2 mg/2 ml Vial ONE (10:20)
[2022-10-17] MEDS ORDERED: fentaNYL 50 mcg/mL 1 mL Vial ONE (10:20)
[2022-10-17] MEDS ORDERED: Lidocaine 1% PF 5 ML VIAL ONE (10:40)
[2022-10-17] MEDS ORDERED: Dexamethasone 20 MG/5 ML VIAL ONE (10:40)
[2022-10-17] MEDS ORDERED: Ondansetron PF 4 MG/2 ML Vial ONE (10:40)
[2022-10-17] MEDS ORDERED: PROPOFOL 200 MG/20 ML VIAL ONE (10:40)
[2022-10-17] MEDS ORDERED: Rocuronium Bromide 10 MG/ML (10ML VIAL) ONE (10:40)
[2022-10-17] MEDS ORDERED: PHENYLEPHRINE-NS 100 MCG/ML 10 ML SYRINGE ONE (10:40)
[2022-10-17] MEDS ORDERED: PACU-Morphine 4MG/ML VIAL SLOW IVP PRN (12:43)
[2022-10-17] MEDS ORDERED: Promethazine HCl 25 MG/ML VIAL IM PRN (12:43)
[2022-10-17] MEDS ORDERED: HYDROmorphone 2 MG/ML VIAL SLOW IVP PRN (12:43)
[2022-10-17] MEDS ORDERED: Morphine Sulfate 2 MG/ML SYRINGE SLOW IVP PRN (12:43)
[2022-10-17] MEDS ORDERED: Ondansetron HCl/PF 4 MG/2 ML Vial IVP PRN (12:43)
[2022-10-17 13:33] LABS: Hemoglobin 8.7 g/dL (14.0-18.0)
[2022-10-17] MEDS ORDERED: Ondansetron PF 4 MG/2 ML Vial IVP PRN (13:45)
[2022-10-17] MEDS ORDERED: Meropenem 2 GM, Admixture Fee 1 EACH in Sodium Chloride 0.9% 100 ML IVPB SCH (13:45)
[2022-10-17] MEDS ORDERED: diphenhydrAMINE 50 MG/ML VIAL IM/IV PRN (13:45)
[2022-10-17] MEDS ORDERED: Morphine Sulfate 100 MG in Dextrose 5% in Water 98 ML IV SCH (13:45)
[2022-10-17] MEDS ORDERED: Naloxone HCl 0.4 mg/ml Vial IV PRN (13:45)
[2022-10-17] MEDS ORDERED: diphenhydrAMINE 25 MG CAP PO PRN (13:45)
[2022-10-17] MEDS: Lactated Ringer's 1,000 ML IV SCH ×2 (14:00→23:31)
[2022-10-17] MEDS: Gabapentin 100 MG CAP PO SCH ×2 (16:00→20:28)
[2022-10-17] MEDS: Ketorolac Tromethamine 30 MG/ML VIAL IVP SCH ×2 (18:08→23:31)
[2022-10-17 18:12] LABS: Hemoglobin 9.4 g/dL (14.0-18.0); Mean Corpuscular Hemoglobin 26.4 pg (27.0-31.0); Mean Corpuscular Volume 85.1 fl (78.0-98.0); Mean Platelet Volume 9.7 fL (7.4-10.4); Platelet Count 248 10x3/uL (130-400); RBC Distribution Width 15.2 % (11.5-14.5); Red Blood Cell (RBC) Count 3.56 mill/uL (4.70-6.10)
[2022-10-17 18:36] LABS: Delete Auto Diff?? YES; Manual Diff?? YES
[2022-10-17 19:17] LABS: Band 23 % (5-11); Burr Cells MODERATE= 6-15 cells HPF (0-1); CellaVision Operator ID LAB.KB; Hypochromia SLIGHT = 6-15 cells HPF (0-5); Lymphocytes 3 % (21-51); Macrocytosis SLIGHT = 6-15 cells HPF (0-5); Monocytes 4 % (0-10); Neutrophil 70 % (42-75); Ovalocytes SLIGHT = 2-5 cells HPF (0-1); Platelet Adequacy Comment Platelets Normal; Polychromasia SLIGHT = 2-3 cells HPF (0-2); Total Cell Count 103
[2022-10-17] MEDS: Pantoprazole 40 MG VIAL IVP SCH (20:27)
[2022-10-17] MEDS: Ezetimibe 10 MG TAB PO SCH (20:28)
[2022-10-17] MEDS: Multivitamin W/ Minerals 1 TAB PO SCH (20:28)
[2022-10-18] MEDS: Ketorolac Tromethamine 30 MG/ML VIAL IVP SCH ×3 (05:18→18:23)
[2022-10-18 05:46] LABS: #Neutrophils 7.8 thou/uL (1.40-6.50); %Basophils 0.1 % (0.0-1.0); %Lymphocytes 10.5 % (21.0-51.0); %Monocytes 10.5 % (0.0-10.0); %Neutrophils 78.7 % (42.0-75.0); Hemoglobin 8.1 g/dL (14.0-18.0); Mean Corpuscular HGB CONC 31.2 g/dL (32.0-36.0); Mean Corpuscular Volume 83.6 fl (78.0-98.0); Mean Platelet Volume 10.3 fL (7.4-10.4); Platelet Count 222 10x3/uL (130-400); RBC Distribution Width 15.3 % (11.5-14.5); Red Blood Cell (RBC) Count 3.11 mill/uL (4.70-6.10); White Blood Cell (WBC) Count 9.9 10x3/uL (4.8-10.8)
[2022-10-18 06:10] LABS: ALT (SGPT) 23 U/L (8-55); AST (SGOT) 23 U/L (5-34); Alkaline Phosphatase 62 U/L (40-110); Anion Gap 12 mmol/L (10-20); BUN (Urea Nitrogen) 21 mg/dL (8.4-25.7); Bilirubin, Total 0.5 mg/dL (0.2-1.2); Calc. Creatinine Clearance 60 mL/min (70-130); Carbon Dioxide 21 mmol/L (23-31); Chloride 110 mmol/L (98-107); Estimated GFR 85; Globulin 2.3 g/dL (2.4-3.5); Glucose 163 mg/dL (83-110); Magnesium 2.1 mg/dL (1.6-2.6); Potassium 4.2 mmol/L (3.5-5.1); Protein, Total 5.3 g/dL (5.8-8.1); Sodium 139 mmol/L (136-145)
[2022-10-18] MEDS: Aspirin Chewable 81 MG TAB PO SCH (08:38)
[2022-10-18] MEDS: Gabapentin 100 MG CAP PO SCH ×3 (08:39→20:36)
[2022-10-18] MEDS: Pantoprazole 40 MG VIAL IVP SCH ×2 (08:39→20:35)
[2022-10-18] MEDS: Sacubitril 49 MG/Valsartan 51 MG TABLET PO SCH ×2 (08:40→20:36)
[2022-10-18] MEDS: Lactated Ringer's 1,000 ML IV SCH ×3 (08:46→23:49)
[2022-10-18] MEDS: Carvedilol 6.25 MG TAB PO SCH ×2 (08:48→16:17)
[2022-10-18] MEDS ORDERED: oxyCODONE 5 MG TAB PO PRN (16:21)
[2022-10-18] MEDS ORDERED: fentaNYL 50 mcg/mL 1 mL Vial SLOW IVP PRN (16:23)
[2022-10-18] MEDS: Acetaminophen 500 MG TAB PO SCH (18:20)
[2022-10-18] MEDS: Ezetimibe 10 MG TAB PO SCH (20:36)
[2022-10-18] MEDS: Multivitamin W/ Minerals 1 TAB PO SCH (20:36)
[2022-10-19] MEDS: Acetaminophen 500 MG TAB PO SCH ×4 (00:35→18:02)
[2022-10-19] MEDS: Ketorolac Tromethamine 30 MG/ML VIAL IVP SCH ×4 (00:36→18:06)
[2022-10-19 05:46] LABS: #Eosinphils 0.1 thou/uL (0.0-0.7); #Monocytes 0.7 thou/uL (0.11-0.59); #Neutrophils 5.4 thou/uL (1.40-6.50); %Basophils 0.3 % (0.0-1.0); %Eosinophils 1.9 % (0.0-10.0); %Lymphocytes 15.8 % (21.0-51.0); %Monocytes 9.8 % (0.0-10.0); %Neutrophils 71.8 % (42.0-75.0); Hemoglobin 7.1 g/dL (14.0-18.0); Mean Corpuscular HGB CONC 31.6 g/dL (32.0-36.0); Mean Corpuscular Hemoglobin 26.6 pg (27.0-31.0); Mean Corpuscular Volume 84.3 fl (78.0-98.0); Mean Platelet Volume 10.2 fL (7.4-10.4); Platelet Count 201 10x3/uL (130-400); RBC Distribution Width 15.3 % (11.5-14.5); Red Blood Cell (RBC) Count 2.67 mill/uL (4.70-6.10); White Blood Cell (WBC) Count 7.5 10x3/uL (4.8-10.8)
[2022-10-19] MEDS: Aspirin Chewable 81 MG TAB PO SCH (08:42)
[2022-10-19] MEDS: Gabapentin 100 MG CAP PO SCH ×3 (08:42→20:37)
[2022-10-19] MEDS: Carvedilol 6.25 MG TAB PO SCH ×3 (08:42→18:05)
[2022-10-19] MEDS: Pantoprazole 40 MG VIAL IVP SCH ×2 (08:43→20:37)
[2022-10-19] MEDS ORDERED: Sacubitril 49 MG/Valsartan 51 MG TABLET PO SCH (09:00)
[2022-10-19] MEDS: Multivitamin W/ Minerals 1 TAB PO SCH (20:37)
[2022-10-19] MEDS: Ezetimibe 10 MG TAB PO SCH (20:37)
[2022-10-20] MEDS: Acetaminophen 500 MG TAB PO SCH ×3 (00:42→11:02)
[2022-10-20] MEDS: Ketorolac Tromethamine 30 MG/ML VIAL IVP SCH ×2 (00:42→06:17)
[2022-10-20 06:08] LABS: #Eosinphils 0.2 thou/uL (0.0-0.7); #Monocytes 0.6 thou/uL (0.11-0.59); #Neutrophils 4.3 thou/uL (1.40-6.50); %Basophils 0.5 % (0.0-1.0); %Eosinophils 3.6 % (0.0-10.0); %Lymphocytes 15.4 % (21.0-51.0); %Monocytes 9.4 % (0.0-10.0); %Neutrophils 70.8 % (42.0-75.0); Hemoglobin 8.7 g/dL (14.0-18.0); Mean Corpuscular HGB CONC 32.2 g/dL (32.0-36.0); Mean Corpuscular Hemoglobin 27.4 pg (27.0-31.0); Mean Corpuscular Volume 85.2 fl (78.0-98.0); Mean Platelet Volume 10.4 fL (7.4-10.4); Platelet Count 210 10x3/uL (130-400); RBC Distribution Width 15.9 % (11.5-14.5); Red Blood Cell (RBC) Count 3.17 mill/uL (4.70-6.10); White Blood Cell (WBC) Count 6.1 10x3/uL (4.8-10.8)
[2022-10-20] MEDS: Gabapentin 100 MG CAP PO SCH (09:05)
[2022-10-20] MEDS: Aspirin Chewable 81 MG TAB PO SCH (09:06)
[2022-10-20] MEDS: Carvedilol 6.25 MG TAB PO SCH (09:06)
[2022-10-20] MEDS: Pantoprazole 40 MG VIAL IVP SCH (09:06)
[2022-10-20] MEDS ORDERED: Furosemide 20 MG/2 ML VIAL SLOW IVP SCH (10:15)
[2022-10-20 11:23] LABS: Actual Bicarbonate (HCO3a) 20.8 mEq/L (22-28); Analyzer IN Cardio OR; Base Excess (BEa) -3.4 mEq/L (-2.0 to +3.0); CO2 Tension 34.1 mmHg (35.0-45.0); Calcium, Ionized (arterial) 1.13 mmol/L (1.12-1.30); Carboxyhemoglobin (COHb) 0.1 gm% (0.0-3.0); Hematocrit-ABG 30 % (42.0-52.0); Hemoglobin (Hb) 10.2 g/dL (14.0-18.0); O2 Tension (PaO2), arterial 159.9 mmHg (> 60.0); Potassium - ABG Lab 4.17 mmol/L (3.70-5.30); pH, Arterial 7.403 (7.35-7.45)
[2022-10-20 11:24] LABS: Puncture Site Arterial Line
[2022-10-20] MEDS ORDERED: Potassium Chloride 20 MEQ TAB PO SCH (12:00)
[2022-10-20 13:50] VITALS: BP 127/68; TEMP 98.2
[2022-10-21] MEDS ORDERED: Spironolactone 25 MG TAB PO SCH (08:00)
[2022-10-21] MEDS ORDERED: Furosemide 20 MG TAB PO SCH (09:00)
== END 2022-10-20 13:55 | disposition home or self-care (01) | DRG 330 ==
LOC: ERS 12:37 → T4-A 17:00 → OBSVTOIN 10-15 14:56
PROVIDERS: ADMIT Internal Medicine; ATTEND Internal Medicine
PROC: 0DBK8ZX Excision of Ascending Colon, Via Natural or Artificial Opening Endoscopic, Diagnostic (ICD-10-PCS; principal; 2022-10-15)
PROC: 0DBL8ZX Excision of Transverse Colon, Via Natural or Artificial Opening Endoscopic, Diagnostic (ICD-10-PCS; 2022-10-15)
PROC: 0DBP8ZX Excision of Rectum, Via Natural or Artificial Opening Endoscopic, Diagnostic (ICD-10-PCS; 2022-10-15)
PROC: 0DBM8ZX Excision of Descending Colon, Via Natural or Artificial Opening Endoscopic, Diagnostic (ICD-10-PCS; 2022-10-15)
PROC: 0DTF0ZZ Resection of Right Large Intestine, Open Approach (ICD-10-PCS; 2022-10-17)
PROC: 02H633Z Insertion of Infusion Device into Right Atrium, Percutaneous Approach (ICD-10-PCS; 2022-10-17)
PROC: 4A033R1 Measurement of Arterial Saturation, Peripheral, Percutaneous Approach (ICD-10-PCS; 2022-10-17)
PROC: 30233N1 Transfusion of Nonautologous Red Blood Cells into Peripheral Vein, Percutaneous Approach (ICD-10-PCS; 2022-10-19)
DX: C18.2 Malignant neoplasm of ascending colon (principal); C78.00 Secondary malignant neoplasm of unspecified lung; E44.0 Moderate protein-calorie malnutrition; I13.0 Hypertensive heart and chronic kidney disease with heart failure and stage 1 through stage 4 chronic kidney disease, or unspecified chronic kidney disease; I42.9 Cardiomyopathy, unspecified; N17.9 Acute kidney failure, unspecified; I50.22 Chronic systolic (congestive) heart failure; I25.10 Atherosclerotic heart disease of native coronary artery without angina pectoris; E78.5 Hyperlipidemia, unspecified; N18.2 Chronic kidney disease, stage 2 (mild); E11.22 Type 2 diabetes mellitus with diabetic chronic kidney disease; D63.1 Anemia in chronic kidney disease; K59.00 Constipation, unspecified; K57.30 Diverticulosis of large intestine without perforation or abscess without bleeding; Z98.890 Other specified postprocedural states; Z95.1 Presence of aortocoronary bypass graft; Z90.49 Acquired absence of other specified parts of digestive tract; Z95.810 Presence of automatic (implantable) cardiac defibrillator; Z79.82 Long term (current) use of aspirin; Z79.899 Other long term (current) drug therapy; Z79.4 Long term (current) use of insulin; Z68.23 Body mass index [BMI] 23.0-23.9, adult; D72.829 Elevated white blood cell count, unspecified; R91.1 Solitary pulmonary nodule
CPT/HCPCS: 36415; 36416; 36430; 71045; 74177; 80053; 80061; 81001; 81479; 82378; 82550; 82805; 83036; 83690; 83735; 84145; 84300; 84484; 84540; 85025; 86850; 86900; 86901; 87040; 87086; 88305; 88309; 88361; 88377; 93005; 96361; 96374; 96375; 96376; A4649; C1751; C1776; C9113; G0378; J1100; J1642; J1650; J1815; J1885; J1940; J2250; J2405; J2543; J2704; J3010; J3490; J7120; P9016; Q9967

== ENCOUNTER 2022-11-12 08:00 | Outpatient (CLI) | payer MEDICARE | END 2022-11-12 08:01 | disposition home or self-care (01) | LOC: PET 08:00 | PROVIDERS: ATTEND Internal Medicine Hematology & Oncology | DX: C18.2 Malignant neoplasm of ascending colon (principal); C78.01 Secondary malignant neoplasm of right lung; J98.4 Other disorders of lung; Z90.49 Acquired absence of other specified parts of digestive tract | CPT/HCPCS: 78815; A9552 ==

== ENCOUNTER 2023-02-12 08:06 | Outpatient (CLI) | payer MEDICARE ==
[2023-02-12] MEDS ORDERED: Iopamidol 370 76% 100 ML VIAL ONE (10:13)
== END 2023-02-12 08:07 | disposition home or self-care (01) ==
LOC: BICCT 08:06
PROVIDERS: ATTEND Internal Medicine Hematology & Oncology
DX: C18.2 Malignant neoplasm of ascending colon (principal); C78.01 Secondary malignant neoplasm of right lung
CPT/HCPCS: 71260; 74177; 82565; Q9967

== ENCOUNTER → 2023-04-30 | Outpatient (CLI) | payer MEDICARE | LOC: PET 08:45 | PROVIDERS: ATTEND Internal Medicine Hematology & Oncology | DX: C18.2 Malignant neoplasm of ascending colon (principal); C78.01 Secondary malignant neoplasm of right lung | CPT/HCPCS: 78815; A9552 ==

== ENCOUNTER 2023-05-13 17:33 | Outpatient (CLI) | payer MEDICARE | END 2023-05-13 17:34 | disposition home or self-care (01) | LOC: RAD 17:33 | PROVIDERS: ATTEND Family Medicine | DX: R05.9 Cough, unspecified (principal); J90 Pleural effusion, not elsewhere classified | CPT/HCPCS: 71046 ==

== ENCOUNTER 2023-05-26 16:27 | Outpatient (CLI) | payer MEDICARE | END 2023-05-26 16:28 | disposition home or self-care (01) | LOC: BICRAD 16:27 | PROVIDERS: ATTEND Nurse Practitioner Family | DX: J90 Pleural effusion, not elsewhere classified (principal); C18.9 Malignant neoplasm of colon, unspecified; C78.01 Secondary malignant neoplasm of right lung; C78.02 Secondary malignant neoplasm of left lung | CPT/HCPCS: 71046 ==

== ENCOUNTER 2023-06-06 12:56 | Observation (INO) | payer MEDICARE ==
[2023-06-06 13:08] LABS: #Basophils 0.1 thou/uL (0.0-0.2); #Neutrophils 5.9 thou/uL (1.40-6.50); %Basophils 0.7 % (0.0-1.0); %Eosinophils 0.4 % (0.0-10.0); %Lymphocytes 13.4 % (21.0-51.0); %Monocytes 12.4 % (0.0-10.0); %Neutrophils 72.9 % (42.0-75.0); Hematocrit 38.5 % (42.0-52.0); Hemoglobin 12.1 g/dL (14.0-18.0); Mean Corpuscular HGB CONC 31.4 g/dL (32.0-36.0); Mean Corpuscular Hemoglobin 29.4 pg (27.0-31.0); Mean Corpuscular Volume 93.7 fl (78.0-98.0); Mean Platelet Volume 10.1 fL (7.4-10.4); Platelet Count 220 10x3/uL (130-400); RBC Distribution Width 18.7 % (11.5-14.5); Red Blood Cell (RBC) Count 4.11 mill/uL (4.70-6.10); White Blood Cell (WBC) Count 8.1 10x3/uL (4.8-10.8)
[2023-06-06 13:24] LABS: ALT (SGPT) 264 U/L (8-55); AST (SGOT) 125 U/L (5-34); Albumin 3.7 g/dL (3.4-4.8); Alkaline Phosphatase 281 U/L (40-110); Anion Gap 16 mmol/L (10-20); BUN (Urea Nitrogen) 37 mg/dL (8.4-25.7); Calc. Creatinine Clearance 0 mL/min (70-130); Calcium 9.1 mg/dL (7.8-10.44); Carbon Dioxide 24 mmol/L (23-31); Chloride 100 mmol/L (98-107); Estimated GFR 36; Globulin 2.3 g/dL (2.4-3.5); Glucose 153 mg/dL (83-110); Potassium 4.5 mmol/L (3.5-5.1); Prothrombin Time 15.1 sec (12.0-14.7); Sodium 135 mmol/L (136-145)
[2023-06-06 13:26] LABS: INR-International Normal Ratio 1.2; PTT 22.8 sec (22.9-36.1)
[2023-06-06 13:28] LABS: Troponin I 0.057 ng/mL (< 0.028)
[2023-06-06] MEDS ORDERED: Aspirin Chewable 81 MG TAB ONE (14:37)
[2023-06-06] MEDS ORDERED: Bisacodyl 10 MG SUPP PR PRN (15:25)
[2023-06-06] MEDS ORDERED: Senokot S 8.6-50 MG TAB PO PRN (15:25)
[2023-06-06] MEDS ORDERED: Ondansetron PF 4 MG/2 ML Vial IVP PRN (15:25)
[2023-06-06] MEDS ORDERED: Acetaminophen 325 MG TAB PO PRN (15:25)
[2023-06-06] MEDS ORDERED: Bisacodyl 5 MG TAB PO PRN (15:25)
[2023-06-06] MEDS ORDERED: Iopamidol-370 76% 500 ML MDV (1 ML CHARGE) ONE (15:40)
[2023-06-06] MEDS ORDERED: Dextrose 5% in Water 1,000 ML IV PRN (15:42)
[2023-06-06] MEDS ORDERED: HumaLOG 300 UNITS/3 ML VIAL SC PRN ×2 (15:42)
[2023-06-06] MEDS ORDERED: Dextrose 50% Abboject 50 ML SYRINGE SLOW IVP PRN (15:42)
[2023-06-06] MEDS ORDERED: Glucagon 1 MG/ML KIT IM PRN (15:42)
[2023-06-06 17:34] VITALS: BMI 23.2
[2023-06-06] MEDS: Albumin 25% 25 GM (100 mL) BOT IVPB SCH (19:15)
[2023-06-06] MEDS: Melatonin 3 MG TAB PO PRN (21:38)
[2023-06-06] MEDS: Multivitamin W/ Minerals 1 TAB PO SCH (21:38)
[2023-06-06] MEDS: Atorvastatin Calcium 40 MG TAB PO SCH (21:39)
[2023-06-06] MEDS: CO Q-10 CAPSULE 50 MG PO SCH (21:39)
[2023-06-06 22:45] LABS: Troponin I 0.066 ng/mL (< 0.028)
[2023-06-07] MEDS: Morphine 2 MG/ML VIAL SLOW IVP SCH (03:42)
[2023-06-07 06:12] LABS: #Monocytes 0.9 thou/uL (0.11-0.59); %Basophils 0.2 % (0.0-1.0); %Monocytes 8.8 % (0.0-10.0); %Neutrophils 86.4 % (42.0-75.0); Hematocrit 37.6 % (42.0-52.0); Hemoglobin 11.8 g/dL (14.0-18.0); Mean Corpuscular HGB CONC 31.4 g/dL (32.0-36.0); Mean Corpuscular Hemoglobin 29.9 pg (27.0-31.0); Mean Corpuscular Volume 95.2 fl (78.0-98.0); Mean Platelet Volume 10.6 fL (7.4-10.4); Platelet Count 181 10x3/uL (130-400); RBC Distribution Width 18.8 % (11.5-14.5); Red Blood Cell (RBC) Count 3.95 mill/uL (4.70-6.10); White Blood Cell (WBC) Count 10.4 10x3/uL (4.8-10.8)
[2023-06-07 06:22] LABS: Hemoglobin A1c 6.1 % (4.0-6.0)
[2023-06-07 06:38] LABS: ALT (SGPT) 1332 U/L (8-55); AST (SGOT) 1651 U/L (5-34); Albumin 4.6 g/dL (3.4-4.8); Alkaline Phosphatase 330 U/L (40-110); Anion Gap 19 mmol/L (10-20); BUN (Urea Nitrogen) 42 mg/dL (8.4-25.7); Bilirubin, Total 2.3 mg/dL (0.2-1.2); Calc. Creatinine Clearance 23 mL/min (70-130); Calcium 9.7 mg/dL (7.8-10.44); Carbon Dioxide 21 mmol/L (23-31); Chloride 100 mmol/L (98-107); Cholesterol 70 mg/dl (< 200 Desired); Estimated GFR 28; Globulin 1.9 g/dL (2.4-3.5); Glucose 192 mg/dL (83-110); HDL Cholesterol 23 mg/dL (>60 Neg Risk); LDL Cholesterol, Calculated 33 mg/dL; Magnesium 2.7 mg/dL (1.6-2.6); Protein, Total 6.5 g/dL (5.8-8.1); Sodium 135 mmol/L (136-145); Triglycerides 71 mg/dL (Less than 150)
[2023-06-07 06:50] LABS: HBCM Index 0.07 S/CO (0-0.79); HBSAg Index 0.28 S/CO (0-0.99); Hep A IgM AB Non-Reactive S/CO (NonReactive); Hep A IgM S/CO 0.15 S/CO (0-0.79); Hep B Surf Ag Non-Reactive S/CO (NonReactive); Hep C IgG Ab Non-Reactive S/CO (NonReactive); Hep C Index 0.08 S/CO (0-0.79); Hepatitis B Core IgM Abs Non-Reactive S/CO (NonReactive); Thyroid Stimulating Hormone 2.6533 uIU/mL (0.35-4.94)
[2023-06-07] MEDS: Aspirin 81 mg Enteric Coated Tablet PO SCH (10:44)
[2023-06-07] MEDS: Furosemide 40 MG (4 mL) VIAL SLOW IVP SCH (10:44)
[2023-06-07] MEDS: Dronabinol 2.5 MG CAP PO SCH (10:45)
[2023-06-07] MEDS: Furosemide 20 MG TAB PO SCH (10:45)
[2023-06-07] MEDS: Empagliflozin 10 MG TAB PO SCH (10:45)
[2023-06-07] MEDS: Morphine 2 MG/ML VIAL SLOW IVP PRN ×2 (14:47→20:48)
[2023-06-07 19:37] VITALS: BP 114/78; TEMP 97.2
[2023-06-07] MEDS ORDERED: Enoxaparin 30 MG (0.3 mL) SYRINGE SC SCH (21:00)
[2023-06-07] MEDS ORDERED: Enoxaparin 40 MG (0.4 mL) SYRINGE SC SCH (21:00)
== END 2023-06-07 21:08 | disposition hospice, home (50) ==
LOC: ERS 12:56 → 2SE 16:09
PROVIDERS: ADMIT Family Medicine; ATTEND Internal Medicine
DX: G93.41 Metabolic encephalopathy (principal); I65.02 Occlusion and stenosis of left vertebral artery; E11.22 Type 2 diabetes mellitus with diabetic chronic kidney disease; I13.0 Hypertensive heart and chronic kidney disease with heart failure and stage 1 through stage 4 chronic kidney disease, or unspecified chronic kidney disease; I50.23 Acute on chronic systolic (congestive) heart failure; N18.31 Chronic kidney disease, stage 3a; D64.9 Anemia, unspecified; R47.01 Aphasia; E78.5 Hyperlipidemia, unspecified; R74.01 Elevation of levels of liver transaminase levels; C18.9 Malignant neoplasm of colon, unspecified; C78.7 Secondary malignant neoplasm of liver and intrahepatic bile duct; Z79.82 Long term (current) use of aspirin; Z95.810 Presence of automatic (implantable) cardiac defibrillator; Z79.899 Other long term (current) drug therapy
CPT/HCPCS: 0042T; 70450; 70496; 70498; 71045; 76705; 80053; 80061; 80074; 82962 ×2; 83036; 83735; 83880; 84484 ×2; 85025; 85610; 85730; 86850; 86900; 86901; 93005; 94760; 97530; P9047 ×2; 36415; 36416; 84443; 96374; 96375; 96376; G0378; J1940; J2272; Q0167; Q9967